=== PATIENT | male | born 1955 | race Caucasian/White ===

== ENCOUNTER 2017-01-10 13:34 | Emergency (ER) | payer SELFPAY ==
[~2017-01-10] VITALS: Ht 182.9 cm; Wt 85.0 kg
[~2017-01-10 13:34] MED LIST: PRED10 PO; VITA10002 PO; [UNRECOGNIZED DRUG - CODE] IV; [UNRECOGNIZED DRUG - CODE] IV; [UNRECOGNIZED DRUG - CODE] IV; [UNRECOGNIZED DRUG - CODE] SQ
[2017-01-10 13:42] VITALS: BP 143/88; PULSE 98; RESP 20; TEMP 97.9; O2SAT 98
--- NOTE | 2017-01-10 14:22 | PD ---
HPI Chief Complaint: Abnormal Results Time Seen by Provider: 14:19 Travel History International Travel<30 days: No Contact w/Intl Traveler<30days: No Traveled to known affect area: No History of Present Illness HPI 61-year-old male came to the emergency room with history of abnormal blood tests. 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 He was treated and has been in remission since January 2015. He was a patient of Dr. Christina. However he had a routine blood test done from [place] 5 days ago which showed abnormally low blood cell counts. He was asked by his [place] doctor to go to the emergency room. He went to [facility] emergency room from where he was admitted to the hospital. Patient was seen by Dr. Byrd and Dr. Dejesus from oncology during his past 4 days of hospitalization. However patient thought that nothing was getting down for him and hence he signed out AMA today and came here straight away. He does say that his platelet count was low and he received a platelet transfusion yesterday. Vital signs are stable. No history of fever or chills. He says that before his blood test was done last week he was feeling weak and easily fatigued. [facility] Past Medical History Narrative Medical List of his past medical, surgical, social and family history is reviewed from the nursing note. 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) Cardiovascular Problems: No High Cholesterol: No Chemotherapy: Yes Chest Pain: No Congestive Heart Failure: No COPD: No Cerebrovascular Accident: No Diabetes: No Diminished Hearing: No Endocrine: No GERD: No Glaucoma: No Genitourinary: No Headaches: Yes Hepatitis: No Hiatal Hernia: Yes Hypertension: No Implanted Vascular Access Dvce: Yes (port left chest (not a power port)) Kidney Stones: No Musculoskeletal: Yes Neurologic: Yes Psychiatric: No Reproductive: No Respiratory: No Myocardial Infarction: No Radiation Therapy: No Renal Failure: No Seizures: No Sickle Cell Disease: No Sleep Apnea: No Thyroid Disease: No Ulcer: No Past Surgical History Abdominal Surgery: Yes (umbillical hernia repair) AICD: No Body Medical Devices: Plates and screws cervical spine. Cardiac Surgery: No Endocrine Surgery: No Eye Surgery: No Neurologic Surgery: Yes (CERVICAL FUSION X 2 (2001,2002,2003)) Oral Surgery: No Pacemaker: No Thoracic Surgery: Yes (Port Placement & removal) Other Surgery: Yes (PORT PLACED AND REMOVED DUE TO MRSA INFECTION) Social History Alcohol Use: Yes (BEER DAILY) Tobacco Use: No Substance Use: No Allergies-Medications (Allergen,Severity, Reaction): Coded Allergies: Oxycodone (Verified Allergy, Severe, HIVES, 01/10/17) Penicillin (Verified Allergy, Intermediate, rash, 01/10/17) *MDRO Multi-Drug Resistant Organism (Verified Allergy, Unknown, 01/10/17) MRSA Comments List of his allergies reviewed from the nursing note. Reported Meds & Prescriptions Reported Meds & Active Scripts Active Levaquin (Levofloxacin) 500 Mg Tab 500 Mg PO DAILY 7 Days Reported Multi-Vitamin Daily (Multiple Vitamin) 1 Tab Tab 1 Tab PO DAILY Narrative Medication List of his home medications reviewed from the nursing note. Review of Systems Except as stated in HPI: all other systems reviewed are Neg Physical Exam Narrative GENERAL: Awake, alert, anxious, no obvious distress SKIN: Warm and dry. HEAD: Atraumatic. Normocephalic. EYES: Pupils equal and round. No scleral icterus. No injection or drainage. ENT: No nasal bleeding or discharge. Mucous membranes pink and moist. NECK: Trachea midline. No JVD. CARDIOVASCULAR: Regular rate and rhythm. No murmur appreciated. RESPIRATORY: No accessory muscle use. Clear to auscultation. Breath sounds equal bilaterally. GASTROINTESTINAL: Abdomen soft, non-tender, nondistended. Hepatic and splenic margins not palpable. MUSCULOSKELETAL: No obvious deformities. No clubbing. No cyanosis. No edema. NEUROLOGICAL: Awake and alert. No obvious cranial nerve deficits. Motor grossly within normal limits. Normal speech. PSYCHIATRIC: Appropriate mood and affect; insight and judgment normal. Data Data Last Documented VS Vital Signs Date Time Temp Pulse Resp B/P Pulse Ox O2 Delivery O2 Flow Rate FiO2 01/10/17 17:40 97.6 78 17 130/71 100 01/10/17 15:58 Room Air Orders Complete Blood Count With Diff (01/10/17 14:51) Comprehensive Metabolic Panel (01/10/17 14:51) Type And Screen (01/10/17 14:51) Prothrombin Time / Inr (Pt) (01/10/17 14:51) ^ Saline Lock (01/10/17 14:51) Labs Laboratory Tests Test 01/10/17 15:10 White Blood Count 1.3 TH/MM3 Red Blood Count 3.23 MIL/MM3 Hemoglobin 10.1 GM/DL Hematocrit 28.9 % Mean Corpuscular Volume 89.3 FL Mean Corpuscular Hemoglobin 31.1 PG Mean Corpuscular Hemoglobin 34.8 % Concent Red Cell Distribution Width 14.7 % Platelet Count 42 TH/MM3 Mean Platelet Volume 9.8 FL Neutrophils (%) (Auto) % Lymphocytes (%) (Auto) % Monocytes (%) (Auto) % Eosinophils (%) (Auto) % Basophils (%) (Auto) % Neutrophils # (Auto) TH/MM3 Lymphocytes # (Auto) TH/MM3 Monocytes # (Auto) TH/MM3 Eosinophils # (Auto) TH/MM3 Basophils # (Auto) TH/MM3 CBC Comment AUTO DIFF Differential Total Cells 100 Counted Neutrophils % (Manual) 39 % Band Neutrophils % 18 % Lymphocytes % 32 % Monocytes % 7 % Eosinophils % 3 % Neutrophils # (Manual) 0.8 TH/MM3 Metamyelocytes 1 % Nucleated Red Blood Cells 1 /100 WBC Differential Comment FINAL DIFF MANUAL Platelet Estimate LOW Platelet Morphology Comment NORMAL Prothrombin Time 11.4 SEC Prothromb Time International 1.0 RATIO Ratio Sodium Level 142 MEQ/L Potassium Level 3.8 MEQ/L Chloride Level 107 MEQ/L Carbon Dioxide Level 26.4 MEQ/L Anion Gap 9 MEQ/L Blood Urea Nitrogen 10 MG/DL Creatinine 0.91 MG/DL Estimat Glomerular Filtration 85 ML/MIN Rate Random Glucose 90 MG/DL Calcium Level 8.1 MG/DL Total Bilirubin 1.7 MG/DL Aspartate Amino Transf 67 U/L (AST/SGOT) Alanine Aminotransferase 47 U/L (ALT/SGPT) Alkaline Phosphatase 66 U/L Total Protein 5.5 GM/DL Albumin 3.3 GM/DL Blood Type B POSITIVE Antibody Screen NEGATIVE Crossmatch Leukocyte-Reduced Red Blood Cells Blood Bank Comment [facility] Medical Decision Making Medical Screen Exam Complete: Yes Emergency Medical Condition: Yes Medical Record Reviewed: Yes Differential Diagnosis Pancytopenia, neutropenia, aplastic anemia Narrative Course 5:35 PM blood test results are back and patient is mount in good neutrophil and and response. I discussed the case with Dr. Bolton who was aviation tactical readiness officer for oncology. He was able to access the medical record from [facility]. He said that patient's white cell count today was better than what it has been in [facility] in the past. He thought that patient was okay to be discharged home and get a patient workup including bone marrow biopsy. The patient to be discharged home on Levaquin 500 mg for 7 day. He wanted a repeat blood test done on Thursday at the [facility] office. I have explained all this to the patient and his mother was there as well a sling to the plan. Patient will be discharged home. Procedures EKG Prior to Arrival: No Diagnosis Primary Impression: Pancytopenia Referrals: Romero Landrum MD 2 days Additional Instructions: Please follow-up with Dr. Byrd at his [facility] office on Thursday to get a repeat blood test done. He will guided you with further plan based on the blood test. Take the antibiotic as per the prescription direction. Please return to the ER if you start getting fever or any other symptoms. Med/Other Pt SpecificInfo: Prescription(s) given Scripts Levofloxacin (Levaquin)500 Mg [id number] Mg PO DAILY 7 Days Ref 0 Prov:Pradip Zafar MD 01/10/17 Disposition: 01 DISCHARGE HOME Condition: Stable Pradip Zafar MD Jan 10, 2017 14:22 Condition: Stable Pradip Zafar MD Jan 10, 2017 14:22
[2017-01-10] MEDS ORDERED: MULT-65 PO (14:24)
[2017-01-10 15:38] LABS: PROTHROMBIN TIME - PATIENT 11.4 SEC (9.8-11.6)
[2017-01-10 15:40] LABS: HEMATOCRIT 28.9 % (39.0-51.0); MEAN CELL VOLUME 89.3 FL (80.0-100.0); MEAN CORPUSCULAR HEMOGLOBIN 31.1 PG (27.0-34.0); MEAN CORPUSCULAR HGB CONC 34.8 % (32.0-36.0); PLATELET COUNT 42 TH/MM3 (150-450); RED BLOOD COUNT 3.23 MIL/MM3 (4.50-5.90); RED CELL DISTRIBUTION WIDTH 14.7 % (11.6-17.2); WHITE BLOOD COUNT 1.3 TH/MM3 (4.0-11.0)
[2017-01-10 15:45] LABS: HEMO FLAGS AUTO DIFF
[2017-01-10 15:58] VITALS: BP 120/76; PULSE 76; RESP 17; O2SAT 100
[2017-01-10 15:58] LABS: ALT (GPT) 47 U/L (12-78); ANION GAP 9 MEQ/L (5-15); AST (GOT) 67 U/L (15-37); BICARBONATE 26.4 MEQ/L (21.0-32.0); BLOOD UREA NITROGEN 10 MG/DL (7-18); CHLORIDE 107 MEQ/L (98-107); GLOMERULAR FILTRATION RATE 85 ML/MIN (>89); POTASSIUM 3.8 MEQ/L (3.5-5.1); SODIUM (NA) 142 MEQ/L (136-145)
[2017-01-10 16:00] LABS: ALKALINE PHOSPHATASE 66 U/L (45-117); TOTAL BILIRUBIN ADULT 1.7 MG/DL (0.2-1.0)
[2017-01-10 16:24] LABS: BANDS 18 % (0-6); EOSINOPHILS 3 % (0-4); METAMYELOCYTES 1 % (0-1); NEUTROPHIL # MANUAL DIFF 0.8 TH/MM3 (1.8-7.7); POLYS (SEG NEUTROPHILS) 39 % (16-70)
[2017-01-10 16:25] LABS: CORRECTED NUCLEATED RBC 1 /100 WBC (0-0); PLATELET ESTIMATE SMEAR LOW (NORMAL); PLATELET MORPHOLOGY NORMAL (NORMAL); SCAN/DIFF FINAL DIFF MANUAL; WBC DIFF SAMPLE 100
[2017-01-10] MEDS ORDERED: LEVA500T PO (17:38)
[2017-01-10 17:40] VITALS: BP 130/71; TEMP 97.6
== END 2017-01-10 17:40 | disposition home or self-care (01) ==
LOC: NEPE 13:34
DX: D61.818 Other pancytopenia (principal)
CPT/HCPCS: 80053; 85007; 85027; 85610; 86850; 86900; 86901; 86920; 86921; 86922; 99283

== ENCOUNTER 2017-01-28 17:46 | Inpatient (IN) | payer OTHER ==
[~2017-01-28] VITALS: Ht 182.9 cm; Wt 89.9 kg
[~2017-01-28 17:46] MED LIST changes: +LEVA500T PO; +MULT-65 PO; -PRED10 PO; -VITA10002 PO; -[UNRECOGNIZED DRUG - CODE] IV; -[UNRECOGNIZED DRUG - CODE] IV; -[UNRECOGNIZED DRUG - CODE] IV; -[UNRECOGNIZED DRUG - CODE] SQ
[2017-01-28 17:47] VITALS: BP 134/69; PULSE 122; RESP 22; TEMP 102; O2SAT 99
[2017-01-28] MEDS ORDERED: CEFEPIME INJ 2,000 MG in SODIUM CHLORIDE 0.9% INJ 100 ML IV STA (18:27)
[2017-01-28] MEDS ORDERED: ACETAMINOPHEN 500 MG CPLT PO ONE (18:30)
[2017-01-28] MEDS ORDERED: SODIUM CHLOR 0.9% 1000 ML INJ 1,000 ML IV SCH (18:30)
--- NOTE | 2017-01-28 18:31 | PD ---
HPI Chief Complaint: Respiratory Distress Time Seen by Provider: 18:14 Travel History International Travel<30 days: No Contact w/Intl Traveler<30days: No Traveled to known affect area: No History of Present Illness HPI This is a 61-year-old male who presents to the emergency department with a history of T-cell lymphoma with 2 weeks of myalgias,, generalized weakness, with difficulty going about his activities of daily living. He had some fevers and chills. His symptoms have been severe to the point where he hasn't been able to work. He was hospitalized at [facility] about 2 weeks ago in the setting of pancytopenia. They were trying to coordinate a bone marrow biopsy but he doesn't have insurance that was complex. He's followed up with us in our ER once since then and he had an upward trending white blood cell count so he was discharged. Today he says he feels more fatigued and he doesn't think he can do this anymore at home. He thinks his lymphoma has recurred. PFSH Past Medical History 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) Cardiovascular Problems: No High Cholesterol: No Chemotherapy: Yes Chest Pain: No Congestive Heart Failure: No COPD: No Cerebrovascular Accident: No Diabetes: No Diminished Hearing: No Endocrine: No GERD: No Glaucoma: No Genitourinary: No Headaches: Yes Hepatitis: No Hiatal Hernia: Yes Hypertension: No Implanted Vascular Access Dvce: Yes (port left chest (not a power port)) Kidney Stones: No Musculoskeletal: Yes Neurologic: Yes Psychiatric: No Reproductive: No Respiratory: No Myocardial Infarction: No Radiation Therapy: No Renal Failure: No Seizures: No Sickle Cell Disease: No Sleep Apnea: No Thyroid Disease: No Ulcer: No Past Surgical History Abdominal Surgery: Yes (umbillical hernia repair) AICD: No Body Medical Devices: Plates and screws cervical spine. Cardiac Surgery: No Endocrine Surgery: No Eye Surgery: No Neurologic Surgery: Yes (CERVICAL FUSION X 2 (2001,2002,2003)) Oral Surgery: No Pacemaker: No Thoracic Surgery: Yes (Port Placement & removal) Other Surgery: Yes (PORT PLACED AND REMOVED DUE TO MRSA INFECTION) Social History Alcohol Use: Yes (ocassionally) Tobacco Use: No Substance Use: No Allergies-Medications (Allergen,Severity, Reaction): Coded Allergies: Oxycodone (Verified Allergy, Severe, HIVES, 01/28/17) Penicillin (Verified Allergy, Intermediate, rash, 01/28/17) *MDRO Multi-Drug Resistant Organism (Verified Allergy, Unknown, 01/28/17) MRSA Reported Meds & Prescriptions Reported Meds & Active Scripts Active Reported Vitamin [id number] Acid (Cobalamine Combinations) 500-400 Mcg Tab 1 Tab PO DAILY Multiple Vitamin 1 Tab 1 Tab PO DAILY Review of Systems Except as stated in HPI: all other systems reviewed are Neg Physical Exam Narrative GENERAL:Well appearing, no acute distress SKIN: Warm and dry. HEAD: Atraumatic. Normocephalic. EYES: Pupils equal and round. No injection or drainage. ENT: Moist mucous membranes NECK: Trachea midline. CARDIOVASCULAR: Regular rate and rhythm. No murmur appreciated. RESPIRATORY: Clear to auscultation. Breath sounds equal bilaterally. GASTROINTESTINAL: Abdomen soft, non-tender, nondistended. Splenomegaly present. MUSCULOSKELETAL: No obvious deformities. NEUROLOGICAL: Awake and alert. No obvious cranial nerve deficits. Moving all extremities. PSYCHIATRIC: Appropriate mood and affect; insight and judgment normal. Data Data Last Documented VS Vital Signs Date Time Temp Pulse Resp B/P Pulse Ox O2 Delivery O2 Flow Rate FiO2 01/28/17 19:14 110 18 124/78 98 Room Air 01/28/17 17:47 102.0 Orders Complete Blood Count With Diff (01/28/17 18:27) Comprehensive Metabolic Panel (01/28/17 18:27) Lactic Acid Sepsis Protocol (01/28/17 18:27) Urinalysis - C+S If Indicated (01/28/17 18:27) Blood Culture (01/28/17 18:27) Chest, Single Ap (01/28/17 18:27) Blood Glucose (01/28/17 18:27) Ecg Monitoring (01/28/17 18:27) Iv Access Insert/Monitor (01/28/17 18:27) Oximetry (01/28/17 18:27) Oxygen Administration (01/28/17 18:27) Cefepime Inj (Maxipime Inj) (01/28/17 18:27) Sodium Chlor 0.9% 1000 Ml Inj (Ns 1000 M (01/28/17 18:30) Acetaminophen (Tylenol) (01/28/17 18:30) Influenzae A/B Antigen (01/28/17 18:27) Isolation 08,20 (01/28/17 19:08) Admit Order (Ed Use Only) (01/28/17 20:18) Labs Laboratory Tests Test 01/28/17 17:38 White Blood Count 1.1 TH/MM3 Red Blood Count 3.72 MIL/MM3 Hemoglobin 11.2 GM/DL Hematocrit 32.8 % Mean Corpuscular Volume 88.2 FL Mean Corpuscular Hemoglobin 30.1 PG Mean Corpuscular Hemoglobin 34.2 % Concent Red Cell Distribution Width 15.0 % Platelet Count 50 TH/MM3 Mean Platelet Volume 7.6 FL Neutrophils (%) (Auto) 77.6 % Lymphocytes (%) (Auto) 6.8 % Monocytes (%) (Auto) 14.6 % Eosinophils (%) (Auto) 0.4 % Basophils (%) (Auto) 0.6 % Neutrophils # (Auto) 0.9 TH/MM3 Lymphocytes # (Auto) 0.1 TH/MM3 Monocytes # (Auto) 0.2 TH/MM3 Eosinophils # (Auto) 0.0 TH/MM3 Basophils # (Auto) 0.0 TH/MM3 CBC Comment AUTO DIFF Differential Total Cells 100 Counted Neutrophils % (Manual) 60 % Band Neutrophils % 24 % Lymphocytes % 4 % Monocytes % 11 % Neutrophils # (Manual) 0.9 TH/MM3 Myelocytes 1 % Differential Comment FINAL DIFF MANUAL Platelet Estimate LOW Ovalocytes 1+ Sodium Level 134 MEQ/L Potassium Level 4.0 MEQ/L Chloride Level 99 MEQ/L Carbon Dioxide Level 27.1 MEQ/L Anion Gap 8 MEQ/L Blood Urea Nitrogen 11 MG/DL Creatinine 1.09 MG/DL Estimat Glomerular Filtration 69 ML/MIN Rate Random Glucose 115 MG/DL Lactic Acid Level 0.9 mmol/L Calcium Level 9.0 MG/DL Total Bilirubin 2.4 MG/DL Aspartate Amino Transf 30 U/L (AST/SGOT) Alanine Aminotransferase 19 U/L (ALT/SGPT) Alkaline Phosphatase 81 U/L Total Protein 6.4 GM/DL Albumin 3.5 GM/DL MDM Medical Decision Making Medical Screen Exam Complete: Yes Emergency Medical Condition: Yes Medical Record Reviewed: Yes (patient was seen in the emergency department on January 10 and was noted to have pancytopenia but his counts were improving from prior hospitalizations of the patient was discharged home) Interpretation(s) White count is 1.1 ANC is 934 Electrolytes are reassuring Total bilirubin is 2.4 Lactic acid is 0.9 Chest x-ray: No pneumonia Differential Diagnosis Pneumonia, urinary tract infection, influenza, sepsis, lymphoma Narrative Course This is a 61-year-old male who presents to the emergency department with a history of T-cell lymphoma. He presents today with worsening malaise. He was febrile on arrival. He was placed on a monitor and an IV was established. Cultures were obtained and was given a dose of cefepime. Labs demonstrate an ANC of 934. Chest x-ray was reassuring. Patient will be admitted for IV antibiotics and oncology consultation. Diagnosis Primary Impression: Neutropenic fever Admitting Information Admitting Physician Requests: Admit Leda Kowalski MD Jan 28, 2017 18:31
[2017-01-28] MEDS ORDERED: MULTTAB67 PO (18:32)
[2017-01-28] MEDS ORDERED: VITATAB43 PO (18:32)
[2017-01-28 18:36] VITALS: O2SAT 100
--- NOTE | 2017-01-28 19:04 | RADRPT ---
EXAM DATE/TIME: 01/28/2017 18:36 [facility] COMPARISON: CHEST SINGLE AP, November 14, 2014, 10:18. INDICATIONS : Short of breath, fatigue and chest pain. MEDICAL HISTORY : Lymphoma. SURGICAL HISTORY : None. ENCOUNTER: Initial ACUITY: 2 days PAIN SCORE: 10/10 LOCATION: Bilateral chest FINDINGS: A single view of the chest demonstrates the lungs to be symmetrically aerated without evidence of mas s, infiltrate or effusion. The cardiomediastinal contours are unremarkable. Osseous structures are intact. CONCLUSION: No acute disease. Nixon Valencia MD on January 28, 2017 at 19:02 Board Certified Radiologist. This report was verified electronically.
[2017-01-28 19:05] LABS: AUTOMATED NEUTROPHIL # 0.9 TH/MM3 (1.8-7.7); BASOPHIL % 0.6 % (0.0-2.0); EOSINOPHIL % 0.4 % (0.0-4.0); HEMATOCRIT 32.8 % (39.0-51.0); LYMPH % 6.8 % (9.0-44.0); LYMPHOCYTE # 0.1 TH/MM3 (1.0-4.8); MEAN CELL VOLUME 88.2 FL (80.0-100.0); MEAN CORPUSCULAR HEMOGLOBIN 30.1 PG (27.0-34.0); MEAN CORPUSCULAR HGB CONC 34.2 % (32.0-36.0); MONO % 14.6 % (0.0-8.0); NEUT % 77.6 % (16.0-70.0); PLATELET COUNT 50 TH/MM3 (150-450); RED BLOOD COUNT 3.72 MIL/MM3 (4.50-5.90); WHITE BLOOD COUNT 1.1 TH/MM3 (4.0-11.0)
[2017-01-28 19:09] LABS: HEMO FLAGS AUTO DIFF
[2017-01-28 19:14] VITALS: BP 124/78; PULSE 110; RESP 18; O2SAT 98
[2017-01-28 19:34] LABS: ANION GAP 8 MEQ/L (5-15); AST (GOT) 30 U/L (15-37); BICARBONATE 27.1 MEQ/L (21.0-32.0); BLOOD UREA NITROGEN 11 MG/DL (7-18); CHLORIDE 99 MEQ/L (98-107); GLOMERULAR FILTRATION RATE 69 ML/MIN (>89); SODIUM (NA) 134 MEQ/L (136-145)
[2017-01-28 19:37] LABS: ALKALINE PHOSPHATASE 81 U/L (45-117); ALT (GPT) 19 U/L (12-78); TOTAL BILIRUBIN ADULT 2.4 MG/DL (0.2-1.0)
[2017-01-28 20:14] LABS: BANDS 24 % (0-6); MYELOCYTES 1 % (0-0); NEUTROPHIL # MANUAL DIFF 0.9 TH/MM3 (1.8-7.7); POLYS (SEG NEUTROPHILS) 60 % (16-70); WBC DIFF SAMPLE 100
[2017-01-28 20:16] LABS: OVALOCYTES 1+ (NORMAL); PLATELET ESTIMATE SMEAR LOW (NORMAL)
[2017-01-28 20:17] LABS: SCAN/DIFF FINAL DIFF MANUAL
--- NOTE | 2017-01-28 20:44 | HHI.HP ---
[facility] Service Family Medicine Primary Care Physician [facility] Admission Diagnosis neutropenic fever Diagnoses: International Travel<30 Days: No Contact w/Intl Traveler<30days: No Known Affected Area: No History of Present Illness Today 01/28/2017: Two weeks ago, Mr. Sargent reports that the "bottom fell out of my blood counts" -- at that point he went to [facility]. He was not happy with the care at this facility so he left and came to [place] ED on January 10. At this point his ANC was improving. He was sent home with neutropenic precautions, a follow up with his PCP (Dr. Paige) in 2 days for report lab work, and 5 days of Levaquin therapy. At his visit, his ANC was improving, however he was still thrombocytopenic and anemic. Since this apt he started feeling better, however since Friday 01/26 he has started to feel worn out. It feels similar to the previous episodes he was having prior to his cancer diagnosis. He feels very tired, fatigued, and all of his joints hurt. He is "dazed and confused", and "detached". Feeling depressed as well. Last night he woke up in a puddle of sweat. This has been occurring for the last month to six weeks. He started with a new dry cough today at about 1:30 pm, and at that time felt nauseated. When he got home he threw up. The vomit was liquid, white in color. Denies blood. First time he threw up in a while. Denies diarrhea or abdominal pain currently. Was told he was in [place] in January of 2015 - has not been getting regular follow ups after he lost insurance and experienced a divorce. ROS: ++ Stiff neck (for several weeks), headache, and joint pains (for several weeks). Glands in neck feel swollen. Pain in left side of upper abd. Same feeling as before from enlarged spleen. (Edmund Castro MD R2) Review of Systems Constitutional: COMPLAINS OF: Diaphoretic episodes, Fatigue, Fever, Chills, Night Sweats Eyes: DENIES: Blurred vision, Diplopia Respiratory: COMPLAINS OF: Cough, DENIES: Sputum production, Shortness of breath Cardiovascular: DENIES: Syncope Gastrointestinal: DENIES: Black stools, Bloody stools Musculoskeletal: COMPLAINS OF: Joint pain, Muscle aches, Stiffness, Back pain, Neck pain Integumentary: DENIES: Rash Hematologic/lymphatic: DENIES: Bruising Neurologic: COMPLAINS OF: Headache, DENIES: Abnormal gait, Localized weakness , Seizures Psychiatric: COMPLAINS OF: Anxiety, Depression, DENIES: Confusion (Edmund Castro MD R2) Past Family Social History 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 Left lower extremity with chronic venous vascular changes including hyperpigmentation. HEAD: Atraumatic. 1.5 cm nodule nontender rubbery ant cervical on left EYES: Pupils equal round and reactive. slightly icteric sclera ENT: Nose without bleeding, purulent drainage or septal hematoma. Throat without erythema, tonsillar hypertrophy or exudate. Uvula midline. Airway patent. NECK: Trachea midline. CARDIOVASCULAR: Regular rate and rhythm without murmurs, gallops, or rubs. RESPIRATORY: Clear to auscultation. GASTROINTESTINAL: Abdomen soft, non-tender, nondistended. Significant splenomegaly +15-20 cm below costal border MUSCULOSKELETAL: Extremities without clubbing, cyanosis, or edema. No joint tenderness, effusion, or edema noted. No calf tenderness. Negative Homans sign bilaterally. Cool and clammy. NEUROLOGICAL: Awake and alert. Cranial nerves II through XII intact. Motor and sensory grossly within normal limits. Five out of 5 muscle strength in all muscle groups. Normal speech. Laboratory Laboratory Tests Test 01/28/17 17:38 White Blood Count 1.1 Red Blood Count 3.72 Hemoglobin 11.2 Hematocrit 32.8 Mean Corpuscular Volume 88.2 Mean Corpuscular Hemoglobin 30.1 Mean Corpuscular Hemoglobin 34.2 Concent Red Cell Distribution Width 15.0 Platelet Count 50 Mean Platelet Volume 7.6 Neutrophils (%) (Auto) 77.6 Lymphocytes (%) (Auto) 6.8 Monocytes (%) (Auto) 14.6 Eosinophils (%) (Auto) 0.4 Basophils (%) (Auto) 0.6 Neutrophils # (Auto) 0.9 Lymphocytes # (Auto) 0.1 Monocytes # (Auto) 0.2 Eosinophils # (Auto) 0.0 Basophils # (Auto) 0.0 CBC Comment AUTO DIFF Differential Total Cells 100 Counted Neutrophils % (Manual) 60 Band Neutrophils % 24 Lymphocytes % 4 Monocytes % 11 Neutrophils # (Manual) 0.9 Myelocytes 1 Differential Comment FINAL DIFF MANUAL Platelet Estimate LOW Ovalocytes 1+ Sodium Level 134 Potassium Level 4.0 Chloride Level 99 Carbon Dioxide Level 27.1 Anion Gap 8 Blood Urea Nitrogen 11 Creatinine 1.09 Estimat Glomerular Filtration 69 Rate Random Glucose 115 Lactic Acid Level 0.9 Calcium Level 9.0 Total Bilirubin 2.4 Aspartate Amino Transf 30 (AST/SGOT) Alanine Aminotransferase 19 (ALT/SGPT) Alkaline Phosphatase 81 Total Protein 6.4 Albumin 3.5 Date/Time Procedure Status Source Growth 01/28/17 17:38 Aerobic Blood Culture Received Blood Peripheral Pending 01/28/17 17:38 Anaerobic Blood Culture Received Blood Peripheral Pending 01/28/17 17:35 Influenza Types A,B Antigen (GRICELDA) - Final Complete Nasal Washing NEGATIVE FOR FLU A AND B ANTIGEN.... (Edmund Castro MD R2) Result Diagram: 01/28/17 1738 01/28/17 1738 Imaging Last Impressions Chest X-Ray 01/28/17 1827 Signed Impressions: Service Date/Time: Saturday, January 28, 2017 18:36 - CONCLUSION: No acute disease. Nixon Valencia MD (Edmund Castro MD R2) Septic Shock Reassessment Heart: Regular rate and rhythm Lungs: Clear Skin: Warm Peripheral Pulses: Bounding Right Radial Bounding Left Radial Capillary Refill: <2 seconds (Edmund Castro MD R2) Assessment and Plan Assessment and Plan 61 y/o very pleasant Caucasion male with hx of Peripheral T-Cell lymphoma in 2013 that was treated with chemotherapy. He presented to [place] ED after recently having fevers (102.0 F), malaise, and an ANC < 1,000. He will be admitted for neutropenic fever of 102 F. Broad spectrum abx have been started and medical oncology has been consulted. Code Status Full Code. (Edmund Castro MD R2) Attending Attestation THIS CASE WAS DISCUSSED WITH THE RESIDENT PHYSICIANS. I HAVE REVIEWED THE RECORD AND AGREE WITH THE ABOVE NOTE AND PLAN OF CARE WAS DISCUSSED. I HAVE AUTHORIZED THE ORDER FOR ADMISSION TO AN IN-PATIENT STATUS. (Francis Sher MD) Problem List: (1) Fever Status: Acute Plan: Neutropenic fever workup to include: Broad spectrum ABX including Cefepime 2 g q 8 hr and Vanc 1,250 mg BID IV Blood cultures x 2 Tylenol 650 prn fevers > 100.4 LA 0.9 WNL (2) Anemia Status: Acute Plan: Likely secondary to myelosuppression from abnormal T-Cell proliferation / cancer recurrence continue to monitor - may need bone marrow aspiration in future. Transfuse if < 8.0 (3) Hyponatremia Status: Acute Plan: S/p 1 L NS bolus, repeat BMP in am (4) Alcohol abuse Status: Acute Plan: Drinks 2-3 beers every day with more on weekends --- CIWA protocol denies every experiencing withdrawal symptoms. (5) DVT prophylaxis Status: Acute Plan: hold Lovenox given thrombocytopenia of 50k transfuse if < 10,000 (6) Neutropenic fever Status: Acute (7) Nutrition, metabolism, and development symptoms Status: Acute Plan: Nutrition: Reg diet Electrolytes: AT goal except 134 Na+ DVT: SCDs wdw Dr. Sher (Edmund Castro MD R2) Physician Certification 2 Midnight Certification Type: Admission for Inpatient Services Order for Inpatient Services The services are ordered in accordance with Medicare regulations or non- Medicare payer requirements, as applicable. In the case of services not specified as inpatient-only, they are appropriately provided as inpatient services in accordance with the 2-midnight benchmark. Estimated LOS (days): 2 3 days is the estimated time the patient will need to remain in the hospital, assuming treatment plan goals are met and no additional complications. Post-Hospital Plan: Home (Edmund Castro MD R2) Edmund Castro MD R2 Jan 28, 2017 20:43 Francis Sher MD Jan 29, 2017 15:12
[2017-01-28] MEDS ORDERED: ENOXAPARIN SODIUM 40 MG/0.4 ML SYRINGE SQ SCH (21:30)
[2017-01-28] MEDS ORDERED: NALOXONE HCL 0.4 MG/ML AMP IV PRN (21:30)
[2017-01-28] MEDS ORDERED: ONDANSETRON HCL 4 MG/2 ML VIAL IVP PRN (21:30)
[2017-01-28] MEDS ORDERED: MAGNESIUM HYDROXIDE SUSP 30 ML CUP PO PRN (21:30)
[2017-01-28 23:04] LABS: BLOOD, URINE NEG (NEG); GLUCOSE,URINE NEG (NEG); KETONE, URINE NEG (NEG); NITRITE,URINE NEG (NEG); SQUAMOUS EPITHELIAL CELL URINE <1 /hpf (0-5); URINE COLOR YELLOW (YELLW/STRAW)
[2017-01-28 23:08] LABS: COMMENT (UR) CATH-CULT NOT IND; CULTURE IF INDICATED CATH CULTURE NOT IND
[2017-01-29] VITALS (7 sets, daily range): BP systolic 109–129; BP diastolic 57–70; PULSE 85–112; RESP 17–20; TEMP 98.5–101.3; O2SAT 97–100
[2017-01-29] MEDS: VANCOMYCIN INJ 1,250 MG in SODIUM CHLOR 0.9% 250 ML INJ 250 ML IV SCH ×2 (02:09→14:00)
[2017-01-29] MEDS: CEFEPIME INJ 2,000 MG in SODIUM CHLORIDE 0.9% INJ 100 ML IV SCH ×3 (04:30→19:53)
[2017-01-29] MEDS: ACETAMINOPHEN 325 MG TAB PO PRN ×3 (05:30→20:06)
[2017-01-29] MEDS: SODIUM CHLOR 0.9% 1000 ML INJ 1,000 ML IV SCH ×2 (05:31→15:15)
[2017-01-29 11:22] LABS: AUTOMATED NEUTROPHIL # 0.7 TH/MM3 (1.8-7.7); BASOPHIL % 0.7 % (0.0-2.0); EOSINOPHIL % 1.2 % (0.0-4.0); HEMATOCRIT 30.6 % (39.0-51.0); LYMPH % 8.2 % (9.0-44.0); LYMPHOCYTE # 0.1 TH/MM3 (1.0-4.8); MEAN CELL VOLUME 89.3 FL (80.0-100.0); MEAN CORPUSCULAR HEMOGLOBIN 30.3 PG (27.0-34.0); MONO % 11.3 % (0.0-8.0); NEUT % 78.6 % (16.0-70.0); PLATELET COUNT 41 TH/MM3 (150-450); RED BLOOD COUNT 3.43 MIL/MM3 (4.50-5.90); RED CELL DISTRIBUTION WIDTH 15.3 % (11.6-17.2); WHITE BLOOD COUNT 0.8 TH/MM3 (4.0-11.0)
[2017-01-29 11:25] LABS: HEMO FLAGS AUTO DIFF
[2017-01-29 11:50] LABS: ALKALINE PHOSPHATASE 67 U/L (45-117); ALT (GPT) 18 U/L (12-78); ANION GAP 5 MEQ/L (5-15); AST (GOT) 32 U/L (15-37); BICARBONATE 29.9 MEQ/L (21.0-32.0); BLOOD UREA NITROGEN 10 MG/DL (7-18); CHLORIDE 103 MEQ/L (98-107); GLOMERULAR FILTRATION RATE 73 ML/MIN (>89); POTASSIUM 3.8 MEQ/L (3.5-5.1); SODIUM (NA) 138 MEQ/L (136-145); TOTAL BILIRUBIN ADULT 2.2 MG/DL (0.2-1.0)
[2017-01-29 12:25] LABS: BANDS 15 % (0-6); EOSINOPHILS 3 % (0-4); MYELOCYTES 2 % (0-0); NEUTROPHIL # MANUAL DIFF 0.7 TH/MM3 (1.8-7.7); OVALOCYTES 1+ (NORMAL); PLATELET ESTIMATE SMEAR LOW (NORMAL); PLATELET MORPHOLOGY NORMAL (NORMAL); POLYS (SEG NEUTROPHILS) 69 % (16-70); SCAN/DIFF FINAL DIFF MANUAL; WBC DIFF SAMPLE 100
--- NOTE | 2017-01-29 15:12 | HHI.FPPN ---
Subjective Remarks No acute events overnight, patient did feel chilled but denies any subjective fevers. He denies any chest pain or shortness of breath, denies any nausea or vomiting, denies any joint pains. Overall he states this morning that he is feeling relatively well. In summary this is a 61-year-old male with a history of T-cell lymphoma treated with chemotherapy in 2013 who presents to the emergency department with fevers. He had "flulike illness" with stiff neck, headache, and joint pains for several weeks and presented to [facility] in [facility]. He then left the hospital and presented to [place] emergency department on January 10 at which point his ANC was improving and he was sent home with neutropenic precautions and 5 days of Levaquin and instructed to follow-up with his primary care doctor. He continued to feel significantly tired and worn out as well as having new episodes of diaphoresis at night. On the day of presentation, he developed a cough with nausea and emesis 1. 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 - Beers - 1-2 beers a day, no withdrawals [employer] - denies MSDS coolant exposure -- worked there for 1998 - 2003 lots of fumes Objective Vitals Vital Signs Date Time Temp Pulse Resp B/P Pulse Ox O2 Delivery O2 Flow Rate FiO2 01/29/17 12:06 99.9 98 18 113/58 99 01/29/17 08:00 98.6 87 18 121/70 100 01/29/17 04:35 101.3 109 18 118/57 97 01/29/17 01:45 100.1 112 18 128/59 100 01/29/17 01:17 98.5 87 18 129/64 100 Room Air 01/28/17 19:14 110 18 124/78 98 Room Air 01/28/17 18:36 100 Room Air 01/28/17 18:20 112 20 100 Room Air 01/28/17 17:47 102.0 122 22 134/69 99 Room Air I/O 01/28/17 01/28/17 01/28/17 01/29/17 01/29/17 01/29/17 07:00 15:00 23:00 07:00 15:00 23:00 Intake Total 870 ml 1200 ml Output Total 400 ml Balance 470 ml 1200 ml Intake Oral 500 ml 1200 ml IV Total 370 ml Output Urine Total 400 ml # Voids 3 # Bowel Movements 1 Result Diagram: 01/29/17 1054 01/29/17 1054 Imaging Last 48 hours Impressions Chest X-Ray 01/28/17 1827 Signed Impressions: Service Date/Time: Saturday, January 28, 2017 18:36 - CONCLUSION: No acute disease. Nixon Valencia MD Objective Remarks GENERAL: Healthy-appearing male, lying in bed in no obvious distress. SKIN: No rashes, ecchymoses or lesions. Left lower extremity with chronic venous vascular changes including hyperpigmentation. NECK: Trachea midline. No JVD or lymphadenopathy palpable CARDIOVASCULAR: Regular rate and rhythm without murmurs, gallops, or rubs. RESPIRATORY: Clear to auscultation. GASTROINTESTINAL: Abdomen soft, non-tender, nondistended. Significant splenomegaly MUSCULOSKELETAL: Extremities without clubbing, cyanosis, or edema. NEUROLOGICAL: Awake and alert. A/P Assessment and Plan 61 y/o very pleasant Caucasion male with hx of Peripheral T-Cell lymphoma in 2013 that was treated with chemotherapy. He presented to [place] ED after recently having fevers (102.0 F), malaise, and an ANC < 1,000. He will be admitted for neutropenic fever of 102 F. Broad spectrum abx have been started and medical oncology has been consulted. Problem List: (1) Neutropenic fever Status: Acute Plan: Patient meets criteria for neutropenic fever on presentation with ANC of 1118 and febrile - Today's ANC is 749 Concern for occult infection versus relapse of lymphoma - Neutropenic precautions placed for entry to room Broad-spectrum antibiotics as below: - Cefepime 2 g IV every 8 hours - Vancomycin 1250 mg IV twice a day Tylenol 650 mg as needed for fevers greater than 100.4F Blood cultures 2 ordered and pending Urine culture ordered and pending Peripheral blood smear ordered and pending Hematology/oncology consult placed, patient known to Dr. Christina (2) Anemia Status: Acute Plan: Likely secondary to myelosuppression from abnormal T-Cell proliferation / cancer recurrence continue to monitor - may need bone marrow aspiration in future. Transfuse if < 8.0 (3) Hyponatremia Status: Acute Plan: Resolved with IV hydration (4) Alcohol abuse Status: Acute Plan: Drinks 2-3 beers every day with more on weekends --- [facility] protocol denies every experiencing withdrawal symptoms. (5) DVT prophylaxis Status: Acute Plan: hold Lovenox given thrombocytopenia of 50k transfuse if < 10,000 (6) Nutrition, metabolism, and development symptoms Status: Acute Plan: Nutrition: Reg diet Electrolytes: AT goal except 134 Na+ DVT: Francis Smith MD Jan 29, 2017 15:12
[2017-01-29] MEDS ORDERED: LORazepam 2 MG/ML VIAL IV PUSH ONE (16:15)
[2017-01-29] MEDS ORDERED: MORPHINE SULFATE 4 MG/ML INJ IV PUSH ONE (16:15)
[2017-01-29] MEDS ORDERED: LIDOCAINE HCL 1% 50 ML VIAL ONE (16:31)
[2017-01-29 17:15] LABS: BONE MARROW PROCESSING COMPLETE; IRON STAIN DONE; JENNER GIEMSA STAIN DONE
--- NOTE | 2017-01-29 19:03 | MB ---
cc: ZANE SHER ZAFAR MD DEVERAS, RUBY ANNE E. M.D. DATE OF CONSULTATION 01/29/17 [address] Zane Manrique CHIEF COMPLAINT Dr. Sher requests a consultation for Mr. Sargent regarding concern for recurrent peripheral T-cell lymphoma. HISTORY OF PRESENT ILLNESS Mr. Sargent is a 61-year-old man, well-known patient, originally diagnosed with a peripheral T-cell lymphoma May 12, 2014. He had an axillary lymph node that confirmed a diagnosis of peripheral T-cell lymphoma. He was treated with CHOP chemotherapy times eight. He declined referral to transplant. He has been followed with various bouts of intermittent fevers. He also had persistent leukopenia and thrombocytopenia. He has had several bone marrow biopsies in the past, but no recurrence was ever documented. Mr. Sargent had undergone a terrible divorce. His divorce is finalized. He had to move back into his mother's home. He lost his insurance. He was unable to return to clinic for followup. He was last seen October 23, 2015. At that time, he was complaining of nonspecific symptoms such as fatigue and night sweats. He did not have evidence for recurrence of T-cell lymphoma. He has some adenopathy and we have elected to follow him. He had cytopenias. Mr. Sargent has recovered from his divorce. Financially he seems to be back in better shape. He has a job now pending to obtain insurance again. He has bought himself a new car, a corvette. He apparently was able to drive his car and lose his cares, however, he has felt bad recently to the point that he was feeling unwell despite his drive. He was admitted to [facility] and was seen by Dr. Romero Landrum, my partner. No records were available of his workup there. He comes into [facility] feeling unwell. He has felt progressively worse over the past two weeks. He was leukopenic, neutropenic, anemic and thrombocytopenic at the time of admission. He feels tired and fatigued. His joints hurt. He feels depressed. He has a new dry cough and nausea. Hematology/Oncology is consulted for evaluation of lymphoma. He denies any new adenopathy. No headaches. No vision change. He was able to work, but his work was rather sedentary. PAST MEDICAL HISTORY 1. Peripheral T-cell lymphoma 2. Persistent pancytopenia 3. Arthritis 4. Basal cell cancer right nose 5. Splenomegaly 6. Emphysema, 7. COPD, 8. History of jaundice PAST SURGICAL HISTORY 1. Cervical disk fusion 2. [id number] placement and removal 3. Bone marrow biopsy 4. Umbilical hernia repair, 5. Colonoscopy, 6. Hemorrhoid surgery 7. Left knee surgery 8. Left axillary lymph node biopsy. ALLERGIES OXYCODONE PENICILLIN FAMILY HISTORY Significant for maternal uncle with lymphoma. SOCIAL HISTORY Drinks one to two beers per day. He denies any tobacco or illicit drug use. His divorce has been finalized. PHYSICAL EXAMINATION VITAL SIGNS: T-max 101.3, temperature 99.9, heart rate 98, respiratory rate 18, blood pressure 113/58, saturation 99%. GENERAL: Mr. Sargent is a well-developed, well-nourished man who looks his stated age. HEENT: His pupils are round, reactive to light and accommodation. Sclerae are mildly icteric. Oropharynx is clear. NECK: Supple. LUNGS: Clear. CARDIOVASCULAR: Normal rate, rhythm. ABDOMEN: Benign. Mild hepatosplenomegaly appreciated. LOWER EXTREMITIES: Lower extremities with no edema. NEUROLOGIC: Nonfocal. LABORATORY DATA Significant for bilirubin of 2.2, BUN and creatinine are normal, pancytopenia with ANC of 700, hemoglobin 10.4, platelet count 41,000. ASSESSMENT/PLAN Mr. Sargent is a 61-year-old man with history of peripheral T-cell lymphoma. He presented with B symptoms and generalized feeling unwell. He has not been seen in hematology clinic since October of 2015. He reports intermittent symptoms that now have become progressively worse over the past two weeks. He was admitted to [facility]. It is unclear if a diagnosis was made. We discussed the risks and benefits of bone marrow biopsy evaluation to determine recurrence of peripheral T-cell lymphoma. He was agreeable to such. Clinically, there is no significant adenopathy appreciated. He will ultimately need staging CT scan chest, abdomen and pelvis. I defer as these scans may have been done by Dr. Landrum in [place]. We will review. We may consider ultrasound of liver given his hyperbilirubinemia to rule out other cause of the jaundice. A review of his electronic medical record shows intermittent elevation in his bilirubin. Emotional support is provided. We will coordinate bone marrow biopsy evaluation and review the results. Other etiology for the pancytopenia will be evaluated. He drinks beer regularly. Does not appear to have dependence. Alcoholic liver disease may be a consideration. MD KATHLEEN Echevarria/ /5:32 PM /6:42 PM DIAMOND
[2017-01-29 21:04] LABS: MEAN CORPUSCULAR HGB CONC 36.3 % (32.0-36.0)
[2017-01-30] VITALS: BP 112/64; PULSE 82; RESP 18; TEMP 98.3; O2SAT 99
[2017-01-30] MEDS: SODIUM CHLOR 0.9% 1000 ML INJ 1,000 ML IV SCH (01:15)
[2017-01-30] MEDS: VANCOMYCIN INJ 1,250 MG in SODIUM CHLOR 0.9% 250 ML INJ 250 ML IV SCH ×2 (01:27→14:00)
[2017-01-30] MEDS: CEFEPIME INJ 2,000 MG in SODIUM CHLORIDE 0.9% INJ 100 ML IV SCH ×3 (03:45→19:40)
[2017-01-30 04:00] VITALS: BP 115/65; PULSE 65; RESP 18; TEMP 100.4; O2SAT 98
[2017-01-30] MEDS: ACETAMINOPHEN 325 MG TAB PO PRN ×2 (04:36→17:12)
[2017-01-30 07:00] LABS: AUTOMATED NEUTROPHIL # 0.5 TH/MM3 (1.8-7.7); BASOPHIL % 0.6 % (0.0-2.0); HEMATOCRIT 28.7 % (39.0-51.0); LYMPH % 11.9 % (9.0-44.0); LYMPHOCYTE # 0.1 TH/MM3 (1.0-4.8); MEAN CELL VOLUME 87.3 FL (80.0-100.0); MEAN CORPUSCULAR HEMOGLOBIN 31.7 PG (27.0-34.0); MONO % 13.1 % (0.0-8.0); NEUT % 73.4 % (16.0-70.0); PLATELET COUNT 33 TH/MM3 (150-450); RED BLOOD COUNT 3.29 MIL/MM3 (4.50-5.90); RED CELL DISTRIBUTION WIDTH 15.1 % (11.6-17.2); WHITE BLOOD COUNT 0.7 TH/MM3 (4.0-11.0)
[2017-01-30 07:02] LABS: HEMO FLAGS AUTO DIFF
[2017-01-30 07:05] LABS: APTT (PATIENT) 29.2 SEC (24.3-30.1); INTERNATIONAL NORMALIZED RATIO 1.1 RATIO
[2017-01-30 07:25] LABS: ALT (GPT) 19 U/L (12-78); ANION GAP 9 MEQ/L (5-15); AST (GOT) 45 U/L (15-37); BICARBONATE 22.6 MEQ/L (21.0-32.0); BLOOD UREA NITROGEN 10 MG/DL (7-18); CHLORIDE 105 MEQ/L (98-107); GLOMERULAR FILTRATION RATE 75 ML/MIN (>89); POTASSIUM 3.9 MEQ/L (3.5-5.1); SODIUM (NA) 137 MEQ/L (136-145)
[2017-01-30 07:27] LABS: ALKALINE PHOSPHATASE 65 U/L (45-117); TOTAL BILIRUBIN ADULT 3.1 MG/DL (0.2-1.0)
[2017-01-30 08:00] VITALS: BP 122/81; PULSE 90; RESP 16; TEMP 98.9; O2SAT 99
[2017-01-30 08:09] LABS: BANDS 34 % (0-6); NEUTROPHIL # MANUAL DIFF 0.5 TH/MM3 (1.8-7.7); PLASMA CELLS 1 % (0-0); POLYS (SEG NEUTROPHILS) 40 % (16-70); WBC DIFF SAMPLE 100
[2017-01-30 08:10] LABS: PLATELET ESTIMATE SMEAR LOW (NORMAL); PLATELET MORPHOLOGY NORMAL (NORMAL); SCAN/DIFF FINAL DIFF MANUAL
--- NOTE | 2017-01-30 10:22 | HHI.FPPN ---
Subjective Remarks Patient was seen and examined this morning. He had bone marrow biopsy yesterday afternoon and minimal pain reported since then. He had an objective fever overnight but denies any warmth, chills, nausea, vomiting, shortness of breath, chest pain, new lesions. No issues with urination or bowel movements. (Dixie Wellington MD R1) Objective Vitals Vital Signs Date Time Temp Pulse Resp B/P Pulse Ox O2 Delivery O2 Flow Rate FiO2 01/30/17 08:00 98.9 90 16 122/81 99 01/30/17 04:00 100.4 65 18 115/65 98 01/30/17 00:00 98.3 82 18 112/64 99 01/29/17 20:00 100.3 85 17 115/65 99 01/29/17 15:50 98.6 92 20 109/65 99 01/29/17 12:06 99.9 98 18 113/58 99 I/O 01/29/17 01/29/17 01/29/17 01/30/17 01/30/17 01/30/17 07:00 15:00 23:00 07:00 15:00 23:00 Intake Total 870 ml 1200 ml Output Total 400 ml 640 ml 860 ml Balance 470 ml 1200 ml -640 ml -860 ml Intake Oral 500 ml 1200 ml IV Total 370 ml Output Urine Total 400 ml 640 ml 860 ml # Voids 3 # Bowel Movements 1 (Dixie Wellington MD R1) Result Diagram: 01/30/17 0610 01/30/17 0610 Imaging Last Impressions Chest X-Ray 01/28/17 1827 Signed Impressions: Service Date/Time: Saturday, January 28, 2017 18:36 - CONCLUSION: No acute disease. Nixon Valencia MD Objective Remarks GENERAL: Healthy-appearing male, lying in bed in no obvious distress. SKIN: No rashes, ecchymoses or lesions. Left lower extremity with chronic venous vascular changes including hyperpigmentation. NECK: Trachea midline. No JVD or lymphadenopathy palpable ENT: Upper dentures in place, poor dentition noted, mucous membranes are moist. Uvula midline. No evidence of mucosal erythema or exudate CARDIOVASCULAR: Regular rate and rhythm without murmurs, gallops, or rubs. RESPIRATORY: Clear to auscultation. GASTROINTESTINAL: Abdomen soft, non-tender, nondistended. Significant splenomegaly MUSCULOSKELETAL: Extremities without clubbing, cyanosis, or edema. NEUROLOGICAL: Awake and alert. Medications and IVs Inpatient Medications Acetaminophen (Tylenol) 1,000 mg ONCE ONCE PO Last administered on 01/28/17 19:13; Start 01/28/17 at 18:30; Stop 01/28/17 at 18:31; Status DC Acetaminophen 650 mg 650 mg Q6HR PRN PO TEMP>100.4F,PAIN1-10,IRRITABLE Last administered on 01/30/17 04:36; Start 01/29/17 at 05:00 Cefepime HCl 2000 mg/Sodium Chloride 100 ml @ 200 mls/hr Q8H IV Last administered on 01/30/17 03:45; Start 01/29/17 at 04:00 Cefepime HCl/ Sodium Chloride (Maxipime Inj/NS Inj) 100 ml @ 200 mls/hr ONCE STAT IV Last administered on 01/28/17 19:49; Start 01/28/17 at 18:27; Stop at 18:56; Status DC Lorazepam (Ativan Inj) 0.5 mg ONCE ONCE IV PUSH Last administered on 16:20; Start 01/29/17 at 16:15; Stop 01/29/17 at 16:16; Status DC Magnesium Hydroxide (Milk Of Magnesia Liq) 30 ml Q12H PRN PO CONSTIPATION; Start 01/28/17 at 21:30 Morphine Sulfate (Morphine Inj) 2 mg ONCE ONCE IV PUSH Last administered on 16:21; Start 01/29/17 at 16:15; Stop 01/29/17 at 16:16; Status DC Naloxone HCl 0.4 mg 0.4 mg UNSCH PRN IV SEE LABEL COMMENTS; Start 01/28/17 at 21:30 Ondansetron HCl (Zofran Inj) 4 mg Q6H PRN IVP NAUSEA OR VOMITING; Start at 21:30 Sodium Chloride (NS 1000 ml Inj) 1,000 ml @ 100 mls/hr Q10H IV Last administered on 01/29/17 15:15; Start 01/29/17 at 05:15 Temazepam (Restoril) 15 mg HS PRN PO INSOMNIA; Start 3/29/17 at 21:00 Vancomycin HCl/ Sodium Chloride (Vancomycin Inj/ NS 250 ml Inj) 262.5 ml @ 250 mls/hr Q12H IV Last administered on 01/30/17t 01:27; Start 01/29/17 at 02:00 ( Dixie Wellington MD R1) Urinary Catheter: No (Dixie Wellington MD R1) Vascular Central Line Catheter: No (Dixie Wellington MD R1) A/P Assessment and Plan 61 y/o Caucasion male with 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 He presented to [place] ED after recently having fevers (102.0 F), malaise, and an ANC < 1,000. He will be admitted for neutropenic fever of 102 F. Broad spectrum antibiotic have been started and medical oncology has been consulted. Discharge Planning Pending further workup of neutropenic fever (Dixie Wellington MD R1) Attending Attestation Pt. examined and case discussed with resident physicians I have read the above note and agree with the assessment/plan as discussed with me I was involved in all medical decision making for this patient Francis Sher MD (Francis Sher MD) Problem List: (1) Neutropenic fever Status: Acute Plan: Patient meets criteria for neutropenic fever on presentation with ANC of 1118 and febrile - Today's ANC is further decreasing at 518 Concern for occult infection versus relapse of lymphoma - Neutropenic precautions placed for entry to room Broad-spectrum antibiotics as below: - Cefepime 2 g IV every 8 hours - Vancomycin 1250 mg IV twice a day Tylenol 650 mg as needed for fevers greater than 100.4F Blood cultures 2 ordered, no growth to date Urine culture ordered, pending Peripheral blood smear ordered, showing predominantly normochromic and normocytic red cells, thrombocytopenia, no evidence of blasts or abnormal cells Bone marrow biopsy collected 01/29 and pending Hematology/oncology consult placed, patient known to Dr. Sanford Kern is increasing + splenomegaly, will order ultrasound of the abdomen (2) Anemia Status: Acute Plan: Likely secondary to myelosuppression from abnormal T-Cell proliferation / cancer recurrence Continue to monitor - s/p biopsy Transfuse if < 8.0 (3) Hyponatremia Status: Resolved Plan: Resolved with IV hydration (4) Alcohol abuse Status: Acute Plan: Drinks 2-3 beers every day with more on weekends, no withdrawal symptoms while inpatient so far Denies any history of withdrawal symptoms CIWA if indicated (5) DVT prophylaxis Status: Acute Plan: Hold Lovenox given thrombocytopenia of <50k Transfuse if < 10,000 (6) Nutrition, metabolism, and development symptoms Status: Acute Plan: Nutrition: Reg diet Electrolytes: Monitor and replete as needed DVT: SCDs (Dixie Wellington MD R1) Dixie Wellington MD R1 Jan 30, 2017 10:22 Francis Sher MD Jan 30, 2017 18:26
--- NOTE | 2017-01-30 11:53 | PD.ONC.PN ---
Subjective Subjective Remarks Tmax 100.4 overnight. He is resting comfortably. He tells me that he slept quite well last night. No complaints. Objective Data Date Time Temp Pulse Resp B/P Pulse Ox O2 Delivery O2 Flow Rate FiO2 01/30/17 08:00 98.9 90 16 122/81 99 01/30/17 04:00 100.4 65 18 115/65 98 01/30/17 00:00 98.3 82 18 112/64 99 01/29/17 20:00 100.3 85 17 115/65 99 01/29/17 15:50 98.6 92 20 109/65 99 01/29/17 12:06 99.9 98 18 113/58 99 Result Diagram: 01/30/17 0610 01/30/17 0610 Laboratory Results Laboratory Tests Test 01/30/17 06:10 White Blood Count 0.7 TH/MM3 Red Blood Count 3.29 MIL/MM3 Hemoglobin 10.4 GM/DL Hematocrit 28.7 % Mean Corpuscular Volume 87.3 FL Mean Corpuscular Hemoglobin 31.7 PG Mean Corpuscular Hemoglobin 36.3 % Concent Red Cell Distribution Width 15.1 % Platelet Count 33 TH/MM3 Mean Platelet Volume 8.3 FL Neutrophils (%) (Auto) 73.4 % Lymphocytes (%) (Auto) 11.9 % Monocytes (%) (Auto) 13.1 % Eosinophils (%) (Auto) 1.0 % Basophils (%) (Auto) 0.6 % Neutrophils # (Auto) 0.5 TH/MM3 Lymphocytes # (Auto) 0.1 TH/MM3 Monocytes # (Auto) 0.1 TH/MM3 Eosinophils # (Auto) 0.0 TH/MM3 Basophils # (Auto) 0.0 TH/MM3 CBC Comment AUTO DIFF Differential Total Cells 100 Counted Neutrophils % (Manual) 40 % Band Neutrophils % 34 % Lymphocytes % 15 % Monocytes % 10 % Neutrophils # (Manual) 0.5 TH/MM3 Differential Comment FINAL DIFF MANUAL Plasma Cells 1 % Platelet Estimate LOW Platelet Morphology Comment NORMAL Prothrombin Time 12.0 SEC Prothromb Time International 1.1 RATIO Ratio Activated Partial 29.2 SEC Thromboplast Time Sodium Level 137 MEQ/L Potassium Level 3.9 MEQ/L Chloride Level 105 MEQ/L Carbon Dioxide Level 22.6 MEQ/L Anion Gap 9 MEQ/L Blood Urea Nitrogen 10 MG/DL Creatinine 1.02 MG/DL Estimat Glomerular Filtration 75 ML/MIN Rate Random Glucose 104 MG/DL Calcium Level 8.1 MG/DL Total Bilirubin 3.1 MG/DL Aspartate Amino Transf 45 U/L (AST/SGOT) Alanine Aminotransferase 19 U/L (ALT/SGPT) Alkaline Phosphatase 65 U/L Total Protein 5.5 GM/DL Albumin 3.0 GM/DL Culture Results Microbiology Date/Time Procedure Status Source Growth 01/28/17 17:35 Aerobic Blood Culture - Preliminary Resulted Blood Peripheral NO GROWTH IN 2 DAYS 01/28/17 17:35 Anaerobic Blood Culture - Preliminary Resulted Blood Peripheral NO GROWTH IN 2 DAYS 01/28/17 17:35 Influenza Types A,B Antigen (GRICELDA) - Final Complete Nasal Washing NEGATIVE FOR FLU A AND B ANTIGEN.... 01/28/17 17:38 Aerobic Blood Culture - Preliminary Resulted Blood Peripheral NO GROWTH IN 2 DAYS 01/28/17 17:38 Anaerobic Blood Culture - Preliminary Resulted Blood Peripheral NO GROWTH IN 2 DAYS 01/28/17 22:20 Urine Culture Received Urine Clean Catch Pending Administered Medications Medications (Trade) Dose Ordered Sig/Mariaa Route PRN Reason Start Time Stop Time Status Last Admin Dose Admin Cefepime HCl 2000 mg/Sodium Chloride 100 ml @ 200 mls/hr Q8H IV 01/29/17 04:00 01/30/17 03:45 Vancomycin HCl/ Sodium Chloride (Vancomycin Inj/ NS 250 ml Inj) 262.5 ml @ 250 mls/hr Q12H IV 01/29/17 02:00 01/30/17 01:27 Acetaminophen 650 mg 650 mg Q6HR PRN PO TEMP>100.4F,PAIN1-10,IRRITABLE 01/29/17 05:00 01/30/17 04:36 Sodium Chloride (NS 1000 ml Inj) 1,000 ml @ 100 mls/hr Q10H IV 01/29/17 05:15 01/29/17 15:15 Objective Remarks GENERAL: Middle aged male lying in bed watching TV in no distress. SKIN: Warm and dry. BMB site asymptomatic. HEAD: Normocephalic. EYES: No injection or drainage. NECK: Supple, trachea midline. CARDIOVASCULAR: +S1/S2. No murmur appreciated. RESPIRATORY: Breath sounds equal bilaterally. No accessory muscle use. GASTROINTESTINAL: Abdomen soft, non-tender, nondistended. EXTREMITIES: No cyanosis, or edema. NEUROLOGICAL: No obvious focal deficit. Awake, alert, and oriented x3. Assessment/Plan Problem List: (1) Pancytopenia Status: Acute Plan: -- BMB done on 01/29. -- Concern that this may now be a T-cell LGL. Hx/Workup: He was originally diagnosed with a T- cell lymphoma in May of 2014. He had CHOP chemo x 8 cycles. He declined referral to a transplant center. His leukopenia and thrombocytopenia persisted but repeat BMB did not prove recurrence. He also had various bouts of recurrent fever and fatigue and night sweats. He has had several weeks of feeling fatigued, had nausea, cough and body aches before presenting to the emergency room. (2) Neutropenic fever Status: Acute Plan: -- On Cefepime, Vanco. -- Monitor for fevers -- Will get blood cultures for temp greater than 100.5. Assessment 61 y/o male with a history of T cell lymphoma admitted for B symptoms and pancytopenia. Plan 1. Await BMB results. 2. Monitor for fevers. 3. Monitor labs, transfuse as necessary. 4. Continue current antibiotics. 5. Supportive care. Attending Statement The exam, history, and the medical decision-making described in the above note were completed with the assistance of the mid-level provider. I reviewed and agree with the findings presented. I attest that I had a [id number] encounter with the patient on the same day, and personally performed and documented my assessment and findings in the medical record. Pt seen and examined. Biopsy site looks good, no hematoma but pt c/o ache. Flow cytometry still pending. Supportive GCSF, given neutropenia and fevers. Agree with blood cultures r/o infection. Suspect B symptoms from recurrent T cell lymphoma. Pending BM bx results. Lisbet Farley Jan 30, 2017 11:52 Josie Christina MD Jan 30, 2017 20:08
[2017-01-30 12:00] VITALS: BP 109/91; PULSE 92; RESP 16; TEMP 99.9; O2SAT 100
[2017-01-30 16:00] VITALS: BP 117/68; PULSE 99; RESP 18; TEMP 101.2; O2SAT 100
--- NOTE | 2017-01-30 18:12 | RADRPT ---
EXAM DATE/TIME: 01/30/2017 15:30 [facility] COMPARISON: No previous studies available for comparison. INDICATIONS : Increased bilirubin. Enlarged spleen. MEDICAL HISTORY : Neuropathy. Hiatal hernia. Stage III T cell lymphoma. Chemotherapy. Anemia. MRSA. SURGICAL HISTORY : Umbilical hernia repair. Oral surgery. Cervical fusion, plates and screws. Port placement and removal . Left knee surgery. ENCOUNTER: Initial ACUITY: 1 day PAIN SCORE: 0/10 LOCATION: Abdomen. MEASUREMENTS: LIVER: 17.1 cm length COMMON DUCT: 4 mm RIGHT KIDNEY: 9.9 x 4.2 x 4.9 cm LEFT KIDNEY: 11.7 x 4.2 x 4.4 cm SPLEEN: 20.9 cm length AORTA: 2.1 cm maximal FINDINGS: There is poor visualization of the pancreas, abdominal aorta and inferior vena cava due to shadowing bowel gas. The liver is enlarged. There is no focal hepatic mass. No biliary ductal dilatation is noted. There is hepatopetal flow within the portal vein. The wall of the gallbladder is mildly thic kened. Mobile gallstones are identified within the gallbladder lumen. Minimal pericholecystic fluid is noted. If there is clinical concern for acute cholecystitis a hepatobiliary scan may be helpful t o confirm cystic duct obstruction. The kidneys are unremarkable bilaterally. CONCLUSION: 1. Hepatosplenomegaly. 2. Thick-walled stone containing gallbladder with pericholecystic fluid raising the possibility of ac quechan cholecystitis. Clinical correlation is recommended. Nixon Valencia MD on January 30, 2017 at 18:03 Board Certified Radiologist. This report was verified electronically.
[2017-01-30 20:00] VITALS: BP 103/62; PULSE 72; RESP 17; TEMP 99; O2SAT 99
[2017-01-30] MEDS: TEMAZEPAM 15 MG CAP PO PRN (21:14)
[2017-01-30] MEDS: FILGRASTIM 300 MCG/ML VIAL SQ SCH (21:15)
[2017-01-31] VITALS: BP 109/65; PULSE 91; RESP 19; TEMP 97.3; O2SAT 100
[2017-01-31] MEDS: VANCOMYCIN INJ 1,250 MG in SODIUM CHLOR 0.9% 250 ML INJ 250 ML IV SCH ×2 (00:05→12:37)
[2017-01-31] MEDS: SODIUM CHLOR 0.9% 1000 ML INJ 1,000 ML IV SCH (03:42)
[2017-01-31] MEDS: CEFEPIME INJ 2,000 MG in SODIUM CHLORIDE 0.9% INJ 100 ML IV SCH ×3 (03:42→21:13)
[2017-01-31 04:00] VITALS: BP 103/56; PULSE 91; RESP 19; TEMP 100.2; O2SAT 97
[2017-01-31 07:42] LABS: AUTOMATED NEUTROPHIL # 1.6 TH/MM3 (1.8-7.7); BASOPHIL % 0.6 % (0.0-2.0); EOSINOPHIL % 0.5 % (0.0-4.0); HEMATOCRIT 25.9 % (39.0-51.0); LYMPH % 9.6 % (9.0-44.0); LYMPHOCYTE # 0.2 TH/MM3 (1.0-4.8); MEAN CELL VOLUME 88.2 FL (80.0-100.0); MEAN CORPUSCULAR HEMOGLOBIN 30.6 PG (27.0-34.0); MEAN CORPUSCULAR HGB CONC 34.8 % (32.0-36.0); MONO % 5.8 % (0.0-8.0); NEUT % 83.5 % (16.0-70.0); PLATELET COUNT 25 TH/MM3 (150-450); RED BLOOD COUNT 2.93 MIL/MM3 (4.50-5.90); RED CELL DISTRIBUTION WIDTH 15.5 % (11.6-17.2)
[2017-01-31 07:47] LABS: HEMO FLAGS AUTO DIFF
[2017-01-31 08:00] VITALS: BP 120/82; PULSE 95; RESP 16; TEMP 97.5; O2SAT 100
[2017-01-31 08:09] LABS: ALT (GPT) 20 U/L (12-78); ANION GAP 7 MEQ/L (5-15); AST (GOT) 52 U/L (15-37); BLOOD UREA NITROGEN 10 MG/DL (7-18); CHLORIDE 107 MEQ/L (98-107); GLOMERULAR FILTRATION RATE 83 ML/MIN (>89); POTASSIUM 3.7 MEQ/L (3.5-5.1); SODIUM (NA) 139 MEQ/L (136-145)
[2017-01-31 08:11] LABS: ALKALINE PHOSPHATASE 59 U/L (45-117); TOTAL BILIRUBIN ADULT 1.9 MG/DL (0.2-1.0)
[2017-01-31 09:05] LABS: BANDS 20 % (0-6); EOSINOPHILS 1 % (0-4); NEUTROPHIL # MANUAL DIFF 1.7 TH/MM3 (1.8-7.7); PLATELET ESTIMATE SMEAR LOW (NORMAL); PLATELET MORPHOLOGY NORMAL (NORMAL); POLYS (SEG NEUTROPHILS) 67 % (16-70); SCAN/DIFF FINAL DIFF MANUAL; WBC DIFF SAMPLE 100
--- NOTE | 2017-01-31 10:16 | PD.ONC.PN ---
Subjective Subjective Remarks Tmax 101.2 yesterday afternoon. Patient resting comfortably without complaint. He ate breakfast this AM without problems. No bleeding. Objective Data Date Time Temp Pulse Resp B/P Pulse Ox O2 Delivery O2 Flow Rate FiO2 01/31/17 08:00 97.5 95 16 120/82 100 01/31/17 04:00 100.2 91 19 103/56 97 01/31/17 00:00 97.3 91 19 109/65 100 01/30/17 20:00 99.0 72 17 103/62 99 01/30/17 16:00 101.2 99 18 117/68 100 01/30/17 12:00 99.9 92 16 109/91 100 01/31/17 01/31/17 01/31/17 07:00 15:00 23:00 Intake Total 1868 ml Output Total 400 ml Balance 1468 ml Result Diagram: 01/31/17 0710 01/31/17 0710 Laboratory Results Laboratory Tests Test 01/31/17 07:10 White Blood Count 2.0 TH/MM3 Red Blood Count 2.93 MIL/MM3 Hemoglobin 9.0 GM/DL Hematocrit 25.9 % Mean Corpuscular Volume 88.2 FL Mean Corpuscular Hemoglobin 30.6 PG Mean Corpuscular Hemoglobin 34.8 % Concent Red Cell Distribution Width 15.5 % Platelet Count 25 TH/MM3 Mean Platelet Volume 9.0 FL Neutrophils (%) (Auto) 83.5 % Lymphocytes (%) (Auto) 9.6 % Monocytes (%) (Auto) 5.8 % Eosinophils (%) (Auto) 0.5 % Basophils (%) (Auto) 0.6 % Neutrophils # (Auto) 1.6 TH/MM3 Lymphocytes # (Auto) 0.2 TH/MM3 Monocytes # (Auto) 0.1 TH/MM3 Eosinophils # (Auto) 0.0 TH/MM3 Basophils # (Auto) 0.0 TH/MM3 CBC Comment AUTO DIFF Differential Total Cells 100 Counted Neutrophils % (Manual) 67 % Band Neutrophils % 20 % Lymphocytes % 5 % Monocytes % 7 % Eosinophils % 1 % Neutrophils # (Manual) 1.7 TH/MM3 Differential Comment FINAL DIFF MANUAL Platelet Estimate LOW Platelet Morphology Comment NORMAL Red Cell Morphology Comment NORMAL Sodium Level 139 MEQ/L Potassium Level 3.7 MEQ/L Chloride Level 107 MEQ/L Carbon Dioxide Level 25.0 MEQ/L Anion Gap 7 MEQ/L Blood Urea Nitrogen 10 MG/DL Creatinine 0.93 MG/DL Estimat Glomerular Filtration 83 ML/MIN Rate Random Glucose 86 MG/DL Calcium Level 8.1 MG/DL Total Bilirubin 1.9 MG/DL Aspartate Amino Transf 52 U/L (AST/SGOT) Alanine Aminotransferase 20 U/L (ALT/SGPT) Alkaline Phosphatase 59 U/L Total Protein 4.8 GM/DL Albumin 2.7 GM/DL Culture Results Microbiology Date/Time Procedure Status Source Growth 01/28/17 17:35 Aerobic Blood Culture - Preliminary Resulted Blood Peripheral Gram Positive Cocci 01/28/17 17:35 Anaerobic Blood Culture - Preliminary Resulted Blood Peripheral NO GROWTH IN 2 DAYS 01/28/17 17:35 Influenza Types A,B Antigen (GRICELDA) - Final Complete Nasal Washing NEGATIVE FOR FLU A AND B ANTIGEN.... 01/28/17 17:38 Aerobic Blood Culture - Preliminary Resulted Blood Peripheral NO GROWTH IN 2 DAYS 01/28/17 17:38 Anaerobic Blood Culture - Preliminary Resulted Blood Peripheral NO GROWTH IN 2 DAYS 01/28/17 22:20 Urine Culture - Preliminary Resulted Urine Clean Catch NO GROWTH IN 24 HOURS. 01/30/17 20:27 Aerobic Blood Culture Received Blood Peripheral Pending 01/30/17 20:27 Anaerobic Blood Culture Received Blood Peripheral Pending 01/30/17 20:31 Aerobic Blood Culture Received Blood Peripheral Pending 01/30/17 20:31 Anaerobic Blood Culture Received Blood Peripheral Pending Administered Medications Medications (Trade) Dose Ordered Sig/Mariaa Route PRN Reason Start Time Stop Time Status Last Admin Dose Admin Temazepam 15 mg 15 mg HS PRN PO INSOMNIA 01/28/17 21:00 01/30/17 21:14 Cefepime HCl 2000 mg/Sodium Chloride 100 ml @ 200 mls/hr Q8H IV 01/29/17 04:00 01/31/17 03:42 Vancomycin HCl/ Sodium Chloride (Vancomycin Inj/ NS 250 ml Inj) 262.5 ml @ 250 mls/hr Q12H IV 01/29/17 02:00 01/31/17 00:05 Acetaminophen 650 mg 650 mg Q6HR PRN PO TEMP>100.4F,PAIN1-10,IRRITABLE 01/29/17 05:00 01/30/17 17:12 Sodium Chloride (NS 1000 ml Inj) 1,000 ml @ 100 mls/hr Q10H IV 01/29/17 05:15 01/31/17 03:42 Filgrastim (Neupogen Inj) 300 mcg DAILY@14 SQ 01/30/17 20:15 02/02/17 20:14 01/30/17 21:15 Objective Remarks GENERAL: Pleasant male, sitting upright in bed. SKIN: Warm and dry. HEAD: Normocephalic. EYES: No injection or drainage. NECK: Supple, trachea midline. CARDIOVASCULAR: +S1/S2. RESPIRATORY: Breath sounds equal bilaterally. No accessory muscle use. GASTROINTESTINAL: Abdomen soft, non-tender, nondistended. EXTREMITIES: No cyanosis, or edema. NEUROLOGICAL: awake and alert, normal speech. moving all extremities. Assessment/Plan Problem List: (1) Pancytopenia Status: Acute Plan: -- BMB done on 01/29--awaiting pathology -- Concern that this may now be a T-cell LGL. Hx/Workup: He was originally diagnosed with a T- cell lymphoma in May of 2014. He had CHOP chemo x 8 cycles. He declined referral to a transplant center. His leukopenia and thrombocytopenia persisted but repeat BMB did not prove recurrence. He also had various bouts of recurrent fever and fatigue and night sweats. He has had several weeks of feeling fatigued, had nausea, cough and body aches before presenting to the emergency room. (2) Neutropenic fever Status: Acute Plan: -- On Cefepime, Vanco. -- ID consulted --on Neupogen --Monitor for fevers -- Will get blood cultures for temp greater than 100.5. Assessment 61 y/o male with a history of T cell lymphoma admitted for B symptoms and pancytopenia. Plan 1. Await BMB results. 2. continue antibiotics 3. monitor CBC--expect will need transfusion in next few days if current trend continues Attending Statement The exam, history, and the medical decision-making described in the above note were completed with the assistance of the mid-level provider. I reviewed and agree with the findings presented. I attest that I had a [id number] encounter with the patient on the same day, and personally performed and documented my assessment and findings in the medical record. Had fever. Continue abx. bone marrow path pending. Continue supportive care. Sabrina Basurto Jan 31, 2017 10:16 Chauncey Louis MD Feb 01, 2017 12:01
--- NOTE | 2017-01-31 11:57 | HHI.FPPN ---
Subjective Remarks Patient was seen and examined this morning. He states he is tired and history of persistent sitting in bed more often and normal. He is getting up and moving around the room without difficulty. He denies shortness of breath, chest pain, rashes, joint pain. He is eating and drinking without difficulty. He is having normal bowel and bladder function. He denies feeling febrile but has been febrile the last 24 hours with a MAXIMUM TEMPERATURE of 101.2F at 4 PM yesterday (Dixie Wellington MD R1) Objective Vitals Vital Signs Date Time Temp Pulse Resp B/P Pulse Ox O2 Delivery O2 Flow Rate FiO2 01/31/17 08:00 97.5 95 16 120/82 100 01/31/17 04:00 100.2 91 19 103/56 97 01/31/17 00:00 97.3 91 19 109/65 100 01/30/17 20:00 99.0 72 17 103/62 99 01/30/17 16:00 101.2 99 18 117/68 100 01/30/17 12:00 99.9 92 16 109/91 100 I/O 01/30/17 01/30/17 01/30/17 01/31/17 01/31/17 01/31/17 07:00 15:00 23:00 07:00 15:00 23:00 Intake Total 1159 ml 1868 ml Output Total 860 ml 300 ml 600 ml 400 ml Balance -860 ml -300 ml 559 ml 1468 ml Intake Oral 120 ml 1868 ml IV Total 1039 ml Output Urine Total 860 ml 300 ml 600 ml 400 ml (Dixie Wellington MD R1) Result Diagram: 01/31/17 0710 01/31/17 0710 Imaging Last Impressions Abdomen Ultrasound 01/30/17 0000 Signed Impressions: Service Date/Time: Monday, January 30, 2017 15:30 - CONCLUSION: 1. Hepatosplenomegaly. 2. Thick-walled stone containing gallbladder with pericholecystic fluid raising the possibility of acute cholecystitis. Clinical correlation is recommended. Nixon Valencia MD Chest X-Ray 01/28/17 4037 Signed Impressions: Service Date/Time: Saturday, January 28, 2017 18:36 - CONCLUSION: No acute disease. Nixon Valencia MD Objective Remarks GENERAL: Healthy-appearing male, lying in bed in no obvious distress. SKIN: No rashes, ecchymoses or lesions. Left lower extremity with chronic venous vascular changes including hyperpigmentation. NECK: Trachea midline. No JVD or lymphadenopathy palpable ENT: Upper dentures in place, poor dentition noted, mucous membranes are moist. Uvula midline. No evidence of mucosal erythema or exudate CARDIOVASCULAR: Regular rate and rhythm without murmurs, gallops, or rubs. RESPIRATORY: Clear to auscultation. GASTROINTESTINAL: Abdomen soft, non-tender, nondistended. Significant splenomegaly MUSCULOSKELETAL: Extremities without clubbing, cyanosis, or edema. NEUROLOGICAL: Awake and alert. Procedures Bone marrow biopsy 01/29 Medications and IVs Inpatient Medications Acetaminophen (Tylenol) 1,000 mg ONCE ONCE PO Last administered on 01/28/17 19:13; Start 01/28/17 at 18:30; Stop 01/28/17 at 18:31; Status DC Acetaminophen 650 mg 650 mg Q6HR PRN PO TEMP>100.4F,PAIN1-10,IRRITABLE Last administered on 01/30/17 17:12; Start 01/29/17 at 05:00 Cefepime HCl 2000 mg/Sodium Chloride 100 ml @ 200 mls/hr Q8H IV Last administered on 01/31/17 03:42; Start 01/29/17 at 04:00 Cefepime HCl/ Sodium Chloride (Maxipime Inj/NS Inj) 100 ml @ 200 mls/hr ONCE STAT IV Last administered on 01/28/17 19:49; Start 01/28/17 at 18:27; Stop at 18:56; Status DC Filgrastim (Neupogen Inj) 300 mcg DAILY@14 SQ Last administered on 01/30/17 21 :15; Start 01/30/17 at 20:15; Stop 02/02/17 at 20:14 Lorazepam (Ativan Inj) 0.5 mg ONCE ONCE IV PUSH Last administered on 16:20; Start 01/29/17 at 16:15; Stop 01/29/17 at 16:16; Status DC Magnesium Hydroxide (Milk Of Magnesia Liq) 30 ml Q12H PRN PO CONSTIPATION; Start 01/28/17 at 21:30 Morphine Sulfate (Morphine Inj) 2 mg ONCE ONCE IV PUSH Last administered on 16:21; Start 01/29/17 at 16:15; Stop 01/29/17 at 16:16; Status DC Naloxone HCl 0.4 mg 0.4 mg UNSCH PRN IV SEE LABEL COMMENTS; Start 01/28/17 at 21:30 Ondansetron HCl (Zofran Inj) 4 mg Q6H PRN IVP NAUSEA OR VOMITING; Start at 21:30 Sodium Chloride (NS 1000 ml Inj) 1,000 ml @ 100 mls/hr Q10H IV Last administered on 01/31/17 03:42; Start 01/29/17 at 05:15 Temazepam (Restoril) 15 mg HS PRN PO INSOMNIA Last administered on 01/30/17 21 :14; Start 01/28/17 at 21:00 Vancomycin HCl/ Sodium Chloride (Vancomycin Inj/ NS 250 ml Inj) 262.5 ml @ 250 mls/hr Q12H IV Last administered on 01/31/17 00:05; Start 01/29/17 at 02:00 ( Dixie Wellington MD R1) Urinary Catheter: No (Dixie Wellington MD R1) Vascular Central Line Catheter: No (Dixie Wellington MD R1) A/P Assessment and Plan 61 y/o Caucasion male with 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 He presented to [place] ED after recently having fevers (102.0 F), malaise, and an ANC < 1,000. He will be admitted for neutropenic fever of 102 F. Broad spectrum antibiotic have been started and medical oncology has been consulted. Discharge Planning Pending further workup of neutropenic fever (Dixie Wellington MD R1) Attending Attestation Pt. examined and case discussed with resident physician I have read the above note and agree with the assessment/plan as discussed with me I was involved in all medical decision making for this patient Francis Sher MD (Francis Sher MD) Problem List: (1) Neutropenic fever Status: Acute Plan: Plan: New finding of positive cocci in pairs and chains on initial blood culture 01/28 , with fever and last 24 hours, repeat blood cultures collected 01/30 ID was consulted 01/30 Continue broad-spectrum antibiotics as below ANC improved to 1740 today Hospital course: Patient meets criteria for neutropenic fever on presentation with ANC of 1118 and febrile ANC less than 1000 on admission, downtrended initially but improving Concern for occult infection versus relapse of lymphoma Neutropenic precautions placed for entry to room Broad-spectrum antibiotics as below: - Cefepime 2 g IV every 8 hours - Vancomycin 1250 mg IV twice a day Tylenol 650 mg as needed for fevers greater than 100.4F Blood cultures 01/28 on admission, gram-positive cocci Review blood cultures Urine culture 01/28 showing no growth Peripheral blood smear ordered, showing predominantly normochromic and normocytic red cells, thrombocytopenia, no evidence of blasts or abnormal cells Bone marrow biopsy collected 01/29 and pending Hematology/oncology consult placed, patient known to Dr. Christina (2) Hepatosplenomegaly Status: Acute Plan: Bili elevated + splenomegaly noted. Patient is asymptomatic. US abdomen ordered 01/30: Hepatosplenomegaly, mildly thickened gallbladder wall multiple mobile gallstones identified. Kidneys were unremarkable. Obtain further imaging/work-up of abdomen if indicated by new symptoms or to further work-up of neutropenia (3) Anemia Status: Acute Plan: Likely secondary to myelosuppression from abnormal T-Cell proliferation / cancer recurrence Continue to monitor - s/p biopsy Transfuse if < 8.0 (4) Alcohol abuse Status: Acute Plan: Drinks 2-3 beers every day with more on weekends, no withdrawal symptoms while inpatient so far Denies any history of withdrawal symptoms CIWA if indicated (5) Hyponatremia Status: Resolved Plan: Resolved with IV hydration (6) DVT prophylaxis Status: Acute Plan: Hold Lovenox given thrombocytopenia of <50k Transfuse if < 10,000 (7) Nutrition, metabolism, and development symptoms Status: Acute Plan: Nutrition: Reg diet Electrolytes: Monitor and replete as needed DVT: SCDs given thrombocytopenic (Dixie Wellington MD R1) Dixie Wellington MD R1 Jan 31, 2017 11:57 Francis Sher MD Jan 31, 2017 13:16
[2017-01-31] MEDS: FILGRASTIM 300 MCG/ML VIAL SQ SCH (12:35)
[2017-01-31 14:00] VITALS: BP 109/68; PULSE 84; RESP 18; TEMP 97.9; O2SAT 100
[2017-01-31 16:00] VITALS: BP 108/61; PULSE 89; RESP 18; TEMP 99.7; O2SAT 100
[2017-01-31 20:00] VITALS: BP 106/63; PULSE 83; RESP 18; TEMP 98.8; O2SAT 100
[2017-01-31] MEDS: TEMAZEPAM 15 MG CAP PO PRN (21:12)
--- NOTE | 2017-01-31 22:28 | PD.ID.CON ---
History of Present Illness Service ID Consult Requested By Dr Sher Reason for Consult neutropenic fever Primary Care Physician José [facility] Diagnoses: History of Present Illness 61 yo male with ho Tcell lympjoma sp chemo 2 yrs ago with remission developed fatigue, malaise, unintetional weight loss and fever/chills for 2 weeks and presented to ER CBC shnowed pancytopenia with ANC 500-1700 range pt cont to have intermitted fevers up to 102 blood clx remain negative @ 1 and 3 days Started on cefepime and vancomycin Review of Systems Except as stated in HPI: all other systems reviewed are Neg Past Family Social History Allergies: Coded Allergies: Oxycodone (Verified Allergy, Severe, HIVES, 01/28/17) Penicillin (Verified Allergy, Intermediate, rash, 01/28/17) *MDRO Multi-Drug Resistant Organism (Verified Allergy, Unknown, 01/28/17) MRSA 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 Past Surgical History Left knee arthroscopy 1991 3 cervical fusions 2001, 2002, 2004 Umbilical hernia Biopsy of Lymph nodes in groin area Active Ordered Medications Medications where reviewed in EMR Antibiotics Include: cefepime vancomycin Family History Mother - healthy 80 Father - unknown Siblings - Brother healthy 48 y/o Maternal uncle with lymphoma Social History Tob - never EtOH - Beers - 1-2 beers a day, no withdrawals Illicits - denies MSDS coolant exposure Physical Exam Vital Signs Vital Signs Date Time Temp Pulse Resp B/P Pulse Ox O2 Delivery O2 Flow Rate FiO2 01/31/17 20:00 98.8 83 18 106/63 100 01/31/17 16:00 99.7 89 18 108/61 100 01/31/17 14:00 97.9 84 18 109/68 100 01/31/17 08:00 97.5 95 16 120/82 100 01/31/17 04:00 100.2 91 19 103/56 97 01/31/17 00:00 97.3 91 19 109/65 100 Physical Exam CONSTITUTIONAL/GENERAL: This is an adequately nourished patient, in no apparent distress. TUBES/LINES/DRAINS: SKIN: No jaundice, rashes, or lesions.Skin temperature appropriate. Not diaphoretic. HEAD: Atraumatic. Normocephalic. EYES: Pupils equal and round and reactive. Extraocular motions intact. No scleral icterus. No injection or drainage. Fundi not examined. ENT: Hearing grossly normal. Nose without bleeding or purulent drainage. Very poor dentition NECK: Trachea midline. Supple, nontender. No palpable thyroid enlargement or nodularity. CARDIOVASCULAR: Regular rate and rhythm without murmurs, gallops, or rubs. No JVD. Peripheral pulses symmetric. RESPIRATORY/CHEST: Symmetric, unlabored respirations. Clear to auscultation. Breath sounds equal bilaterally. No wheezes, rales, or rhonchi. GASTROINTESTINAL: Abdomen soft, non-tender, nondistended. No hepato-splenomegaly , or palpable masses. No guarding. Bowel sounds present. GENITOURINARY: Without palpable bladder distension. MUSCULOSKELETAL: Extremities without clubbing, cyanosis, or edema. No joint tenderness or effusion noted. No calf tenderness. No mottling or clubbing. LYMPHATICS: No palpable cervical or supraclavicular adenopathy. NEUROLOGICAL: Awake and alert. Motor and sensory grossly within normal limits. Follows commands. Normal speechMoves all extremities. PSYCHIATRIC: No obvious anxiety/depression. no apparent hallucinations or other psychotic thought process. Laboratory Laboratory Tests Test 01/31/17 07:10 White Blood Count 2.0 Red Blood Count 2.93 Hemoglobin 9.0 Hematocrit 25.9 Mean Corpuscular Volume 88.2 Mean Corpuscular Hemoglobin 30.6 Mean Corpuscular Hemoglobin 34.8 Concent Red Cell Distribution Width 15.5 Platelet Count 25 Mean Platelet Volume 9.0 Neutrophils (%) (Auto) 83.5 Lymphocytes (%) (Auto) 9.6 Monocytes (%) (Auto) 5.8 Eosinophils (%) (Auto) 0.5 Basophils (%) (Auto) 0.6 Neutrophils # (Auto) 1.6 Lymphocytes # (Auto) 0.2 Monocytes # (Auto) 0.1 Eosinophils # (Auto) 0.0 Basophils # (Auto) 0.0 CBC Comment AUTO DIFF Differential Total Cells 100 Counted Neutrophils % (Manual) 67 Band Neutrophils % 20 Lymphocytes % 5 Monocytes % 7 Eosinophils % 1 Neutrophils # (Manual) 1.7 Differential Comment FINAL DIFF MANUAL Platelet Estimate LOW Platelet Morphology Comment NORMAL Red Cell Morphology Comment NORMAL Sodium Level 139 Potassium Level 3.7 Chloride Level 107 Carbon Dioxide Level 25.0 Anion Gap 7 Blood Urea Nitrogen 10 Creatinine 0.93 Estimat Glomerular Filtration 83 Rate Random Glucose 86 Calcium Level 8.1 Total Bilirubin 1.9 Aspartate Amino Transf 52 (AST/SGOT) Alanine Aminotransferase 20 (ALT/SGPT) Alkaline Phosphatase 59 Total Protein 4.8 Albumin 2.7 Date/Time Procedure Status Source Growth 01/30/17 20:31 Aerobic Blood Culture - Preliminary Resulted Blood Peripheral NO GROWTH IN 1 DAY 01/30/17 20:31 Anaerobic Blood Culture - Preliminary Resulted Blood Peripheral NO GROWTH IN 1 DAY 01/28/17 22:20 Urine Culture - Final Complete Urine Clean Catch NO GROWTH IN 48 HOURS. 01/28/17 17:35 Influenza Types A,B Antigen (GRICELDA) - Final Complete Nasal Washing NEGATIVE FOR FLU A AND B ANTIGEN.... Result Diagram: 01/31/17 0710 01/31/17 0710 Imaging Last Impressions Abdomen Ultrasound 01/30/17 0000 Signed Impressions: Service Date/Time: Monday, January 30, 2017 15:30 - CONCLUSION: 1. Hepatosplenomegaly. 2. Thick-walled stone containing gallbladder with pericholecystic fluid raising the possibility of acute cholecystitis. Clinical correlation is recommended. Nixon Valencia MD Chest X-Ray 01/28/177 Signed Impressions: Service Date/Time: Saturday, January 28, 2017 18:36 - CONCLUSION: No acute disease. Nixon Valencia MD Assessment and Plan Assessment and Plan Fever Pancytopneic, suspected T cell luymphoma recurrence; BM bx P Acute calculous cholecysttis incidentally seen on US but clinically inapparent US showed Thick-walled stone containing gallbladder with pericholecystic fluid raising the possibility of acute cholecystitis. PCN allergy, unknown reaction type - cont cefepime - add flagyl - cont vanco for now - consult GI - fu blood clx untill final Patito Mallory MD Jan 31, 2017 22:28
[2017-02-01] VITALS: BP 100/64; PULSE 83; RESP 18; TEMP 96.4; O2SAT 100
[2017-02-01] MEDS: metroNIDAZOLE 500 MG INJ 100 ML IV SCH ×4 (01:32→23:51)
[2017-02-01] MEDS: VANCOMYCIN INJ 1,250 MG in SODIUM CHLOR 0.9% 250 ML INJ 250 ML IV SCH ×2 (02:34→16:20)
[2017-02-01 04:00] VITALS: BP 96/65; PULSE 82; RESP 18; TEMP 95.8; O2SAT 100
[2017-02-01] MEDS: SODIUM CHLOR 0.9% 1000 ML INJ 1,000 ML IV SCH ×2 (04:02→23:21)
[2017-02-01] MEDS: CEFEPIME INJ 2,000 MG in SODIUM CHLORIDE 0.9% INJ 100 ML IV SCH ×3 (04:41→19:59)
[2017-02-01 08:00] VITALS: BP 121/79; PULSE 75; RESP 18; TEMP 96.6; O2SAT 100
[2017-02-01 08:28] LABS: AUTOMATED NEUTROPHIL # 1.5 TH/MM3 (1.8-7.7); BASOPHIL % 0.5 % (0.0-2.0); EOSINOPHIL % 1.1 % (0.0-4.0); HEMATOCRIT 29.6 % (39.0-51.0); LYMPH % 11.9 % (9.0-44.0); LYMPHOCYTE # 0.2 TH/MM3 (1.0-4.8); MEAN CELL VOLUME 88.8 FL (80.0-100.0); MEAN CORPUSCULAR HEMOGLOBIN 30.3 PG (27.0-34.0); MEAN CORPUSCULAR HGB CONC 34.1 % (32.0-36.0); MONO % 7.8 % (0.0-8.0); NEUT % 78.7 % (16.0-70.0); PLATELET COUNT 28 TH/MM3 (150-450); RED BLOOD COUNT 3.34 MIL/MM3 (4.50-5.90); RED CELL DISTRIBUTION WIDTH 15.5 % (11.6-17.2); WHITE BLOOD COUNT 1.9 TH/MM3 (4.0-11.0)
[2017-02-01 08:33] LABS: HEMO FLAGS AUTO DIFF
[2017-02-01 08:59] LABS: ALKALINE PHOSPHATASE 69 U/L (45-117); ALT (GPT) 25 U/L (12-78); ANION GAP 7 MEQ/L (5-15); AST (GOT) 68 U/L (15-37); BICARBONATE 25.7 MEQ/L (21.0-32.0); BLOOD UREA NITROGEN 9 MG/DL (7-18); CHLORIDE 106 MEQ/L (98-107); GLOMERULAR FILTRATION RATE 85 ML/MIN (>89); POTASSIUM 3.6 MEQ/L (3.5-5.1); SODIUM (NA) 139 MEQ/L (136-145); TOTAL BILIRUBIN ADULT 2.1 MG/DL (0.2-1.0)
[2017-02-01 09:20] LABS: BANDS 42 % (0-6); CORRECTED NUCLEATED RBC 1 /100 WBC (0-0); DOHLE BODIES PRESENT (NONE SEEN); EOSINOPHILS 1 % (0-4); NEUTROPHIL # MANUAL DIFF 1.6 TH/MM3 (1.8-7.7); POLYS (SEG NEUTROPHILS) 40 % (16-70); WBC DIFF SAMPLE 100
[2017-02-01 09:21] LABS: PLATELET ESTIMATE SMEAR LOW (NORMAL); PLATELET MORPHOLOGY NORMAL (NORMAL); SCAN/DIFF FINAL DIFF MANUAL
--- NOTE | 2017-02-01 09:27 | HHI.FPPN ---
Subjective Remarks Patient was seen and examined this morning. He is tired, same as yesterday. Feels down because his friend has been diagnosed with recurrent cancer in the last week. He denies any fevers, chills, rashes, abdominal pain, chest pain, diarrhea, constipation. He feels agreeable to PT today. (Dixie Wellington MD R1) Objective Vitals Vital Signs Date Time Temp Pulse Resp B/P Pulse Ox O2 Delivery O2 Flow Rate FiO2 02/01/17 04:00 95.8 82 18 96/65 100 02/01/17 00:00 96.4 83 18 100/64 100 01/31/17 20:00 98.8 83 18 106/63 100 01/31/17 16:00 99.7 89 18 108/61 100 01/31/17 14:00 97.9 84 18 109/68 100 I/O 01/31/17 01/31/17 01/31/17 02/01/17 02/01/17 02/01/17 07:00 15:00 23:00 07:00 15:00 23:00 Intake Total 1868 ml 720 ml 480 ml Output Total 400 ml 600 ml 1350 ml Balance 1468 ml 120 ml -1350 ml 480 ml Intake Oral 1868 ml 720 ml 480 ml Output Urine Total 400 ml 600 ml 1350 ml # Voids 3 # Bowel Movements 1 (Dixie Wellington MD R1) Result Diagram: 02/01/17 0800 02/01/17 0800 Imaging Last Impressions Abdomen Ultrasound 01/30/17 0000 Signed Impressions: Service Date/Time: Monday, January 30, 2017 15:30 - CONCLUSION: 1. Hepatosplenomegaly. 2. Thick-walled stone containing gallbladder with pericholecystic fluid raising the possibility of acute cholecystitis. Clinical correlation is recommended. Nixon Valencia MD Chest X-Ray 01/28/17 1827 Signed Impressions: Service Date/Time: Saturday, January 28, 2017 18:36 - CONCLUSION: No acute disease. Nixon Valencia MD Objective Remarks GENERAL: Healthy-appearing male, lying in bed in no obvious distress. SKIN: No rashes, ecchymoses or lesions. Left lower extremity with chronic stable venous vascular changes including hyperpigmentation. NECK: Trachea midline. No JVD or lymphadenopathy palpable. ENT: Upper dentures in place, poor dentition noted, mucous membranes are moist. Uvula midline. No evidence of mucosal erythema or exudate CARDIOVASCULAR: Regular rate and rhythm without murmurs, gallops, or rubs. RESPIRATORY: Clear to auscultation. No crackles or wheezes. GASTROINTESTINAL: Abdomen soft, non-tender, nondistended. Significant splenomegaly. MUSCULOSKELETAL: Extremities without clubbing, cyanosis, or edema. NEUROLOGICAL: Awake and alert. Procedures Bone marrow biopsy 01/29 Medications and IVs Inpatient Medications Acetaminophen (Tylenol) 1,000 mg ONCE ONCE PO Last administered on 01/28/17 19:13; Start 01/28/17 at 18:30; Stop 01/28/17 at 18:31; Status DC Acetaminophen 650 mg 650 mg Q6HR PRN PO TEMP>100.4F,PAIN1-10,IRRITABLE Last administered on 01/30/17 17:12; Start 01/29/17 at 05:00 Cefepime HCl 2000 mg/Sodium Chloride 100 ml @ 200 mls/hr Q8H IV Last administered on 02/01/17 04:41; Start 01/29/17 at 04:00 Cefepime HCl/ Sodium Chloride (Maxipime Inj/NS Inj) 100 ml @ 200 mls/hr ONCE STAT IV Last administered on 01/28/17 19:49; Start 01/28/17 at 18:27; Stop at 18:56; Status DC Filgrastim 300 mcg 300 mcg DAILY@14 SQ Last administered on 01/31/17 12:35; Start 01/30/17 at 20:15; Stop 02/02/17 at 20:14 Lorazepam (Ativan Inj) 0.5 mg ONCE ONCE IV PUSH Last administered on 16:20; Start 01/29/17 at 16:15; Stop 01/29/17 at 16:16; Status DC Magnesium Hydroxide (Milk Of Magnesia Liq) 30 ml Q12H PRN PO CONSTIPATION; Start 01/28/17 at 21:30 Metronidazole (Flagyl 500 Mg Inj) 100 ml @ 100 mls/hr Q8H IV Last administered on 02/01/17 01:32; Start 02/01/17 at 00:45 Morphine Sulfate (Morphine Inj) 2 mg ONCE ONCE IV PUSH Last administered on 16:21; Start 01/29/17 at 16:15; Stop 01/29/17 at 16:16; Status DC Naloxone HCl 0.4 mg 0.4 mg UNSCH PRN IV SEE LABEL COMMENTS; Start 01/28/17 at 21:30 Ondansetron HCl (Zofran Inj) 4 mg Q6H PRN IVP NAUSEA OR VOMITING; Start at 21:30 Sodium Chloride (NS 1000 ml Inj) 1,000 ml @ 100 mls/hr Q10H IV Last administered on 02/01/17 04:02; Start 01/29/17 at 05:15 Temazepam (Restoril) 15 mg HS PRN PO INSOMNIA Last administered on 01/31/17 21: 12; Start 01/28/17 at 21:00 Vancomycin HCl/ Sodium Chloride (Vancomycin Inj/ NS 250 ml Inj) 262.5 ml @ 250 mls/hr Q12H IV Last administered on 02/01/17 02:34; Start 01/29/17 at 02:00 ( Dixie Wellington MD R1) Urinary Catheter: No (Dixie Wellington MD R1) Vascular Central Line Catheter: No (Dixie Wellington MD R1) A/P Assessment and Plan 61 y/o Caucasion male with 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 He presented to [place] ED after recently having fevers (102.0 F), malaise, and an ANC < 1,000. He will be admitted for neutropenic fever of 102 F. Broad spectrum antibiotic have been started and medical oncology has been consulted. Discharge Planning Unclear, pending further workup of neutropenic fever (Dixie Wellington MD R1) Attending Attestation Patient seen and examined, discussed with resident team. I agree with assessment and management as documented and discussed with me. Pt afebrile for 24 hours. Pt reports that he is starting to feel a bit better, but still complains of significant fatigue. Await bone marrow pathology. (Leonie Almazan MD) Problem List: (1) Neutropenic fever Status: Acute Plan: Plan: New finding of positive cocci in pairs and chains on initial blood culture 01/28 , with some low temperatures over last 24 hours, repeat blood cultures collected 01/30, continue to follow ID was consulted 01/30appreciate recommendations, added Flagyl and recommended GI consult Continue broad-spectrum antibiotics as below ANC improved to 1740 on 01/31, differential is pending on 02/19 Follow bone marrow biopsy Daily CBC Hospital course: Patient meets criteria for neutropenic fever on presentation with ANC of 1118 and febrile ANC less than 1000 on admission, downtrended initially but improving Concern for occult infection versus relapse of lymphoma Neutropenic precautions placed for entry to room Broad-spectrum antibiotics as below: - Cefepime 2g IV every 8 hours (01/28 ) - Vancomycin 1250 mg IV twice a day (01/28 ) - Flagyl 500 mg IV every 8 hours (01/31 ) Tylenol 650 mg as needed for fevers greater than 100.4F Blood cultures 01/28 on admission, gram-positive cocci Repeat blood cultures 01/30 so far showing no growth Urine culture 01/28 showing no growth Peripheral blood smear ordered, showing predominantly normochromic and normocytic red cells, thrombocytopenia, no evidence of blasts or abnormal cells Bone marrow biopsy collected 01/29 and pending Hematology/oncology consult placed, patient known to Dr. Christina (2) Hepatosplenomegaly Status: Acute Plan: Plan: Follow clinically GI consulted per ID, appreciate recommendations Hospital course: Bili elevated + splenomegaly noted. Patient is asymptomatic. US abdomen ordered 01/30: Hepatosplenomegaly, mildly thickened gallbladder wall multiple mobile gallstones identified. Kidneys were unremarkable. Obtain further imaging/work-up of abdomen if indicated by new symptoms or to further work-up of neutropenia (3) Anemia Status: Acute Plan: Likely secondary to myelosuppression from abnormal T-Cell proliferation / cancer recurrence Continue to monitor - s/p biopsy Transfuse if < 8.0 (4) Alcohol abuse Status: Chronic Plan: Drinks 2-3 beers every day with more on weekends, no withdrawal symptoms while inpatient so far Denies any history of withdrawal symptoms CIWA if indicated (5) Hyponatremia Status: Resolved Plan: Resolved with IV hydration (6) DVT prophylaxis Status: Acute Plan: Hold Lovenox given thrombocytopenia of <50k Transfuse if < 10,000 (7) Nutrition, metabolism, and development symptoms Status: Acute Plan: Fluids: NS @ 100/hr Nutrition: Reg diet Electrolytes: Monitor and replete as needed DVT: SCDs given thrombocytopenic Discussed with Dr. Almazan (Dixie Wellington MD R1) Dixie Wellington MD R1 Feb 01, 2017 09:27 Leonie Almazan MD Feb 01, 2017 20:09
--- NOTE | 2017-02-01 10:23 | PD.CONS ---
HPI History of Present Illness This is a 61 year old male being consulted for GI due to cholecystitis. Abdominal US 01/30/17 showed hepatosplenomegaly, thick-walled stone containing gallbladder with pericholecystic fluid raising the possibility of acute cholecystitis. Denies history of any issues with his gallbladder. 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 In 2014 he was told he was in remission and has not been going to regular followup visits due to no longer having health insurance. He presented to the ER with reports of having high fevers (102F), malaise, fatigue, and joint pain. ANC <1000. He has been feeling depressed. Had episode of emesis at home, liquid, no blood. Denies having abdominal pain or diarrhea. Today he reports he is still feeling fatigued. Denies abdominal pain, no diarrhea or constipation. Denies nausea or vomiting. Reports he has been afebrile. (Vianney Lui) PFSH Past Medical History -Peripheral T-Cell Lymphoma--Diagnosed December 2013, Dr. Ruiz -Chemotherapy in 2013, total 9 rounds of chemo per patient -Infusion port infection with MRSA Past Surgical History -Left knee arthroscopy 1991 -Cervical fusions x 3 (2001, 2002, 2003) -Umbilical hernia -Lymph node biopsy in groin area (Vianney Lui) Coded Allergies: Oxycodone (Verified Allergy, Severe, HIVES, 01/28/17) Penicillin (Verified Allergy, Intermediate, rash, 01/28/17) *MDRO Multi-Drug Resistant Organism (Verified Allergy, Unknown, 01/28/17) MRSA Medications Current Medications Medications (Trade) Dose Ordered Sig/Mariaa Route PRN Reason Start Time Stop Time Status Last Admin Dose Admin Ondansetron HCl (Zofran Inj) 4 mg Q6H PRN IVP NAUSEA OR VOMITING 01/28/17 21:30 Magnesium Hydroxide (Milk Of Magnesia Liq) 30 ml Q12H PRN PO CONSTIPATION 01/28/17 21:30 Temazepam (Restoril) 15 mg HS PRN PO INSOMNIA 01/28/17 21:00 01/31/17 21:12 Naloxone HCl 0.4 mg 0.4 mg UNSCH PRN IV SEE LABEL COMMENTS 01/28/17 21:30 Cefepime HCl 2000 mg/Sodium Chloride 100 ml @ 200 mls/hr Q8H IV 01/29/17 04:00 02/01/17 04:41 Vancomycin HCl/ Sodium Chloride (Vancomycin Inj/ NS 250 ml Inj) 262.5 ml @ 250 mls/hr Q12H IV 01/29/17 02:00 02/01/17 02:34 Acetaminophen 650 mg 650 mg Q6HR PRN PO TEMP>100.4F,PAIN1-10,IRRITABLE 01/29/17 05:00 01/30/17 17:12 Sodium Chloride (NS 1000 ml Inj) 1,000 ml @ 100 mls/hr Q10H IV 01/29/17 05:15 02/01/17 04:02 Filgrastim 300 mcg 300 mcg DAILY@14 SQ 01/30/17 20:15 02/02/17 20:14 01/31/17 12:35 Metronidazole (Flagyl 500 Mg Inj) 100 ml @ 100 mls/hr Q8H IV 02/01/17 00:45 02/01/17 01:32 Family History -Maternal Uncle-Lymphoma Social History -Employed - -Tobacco:Denies -ETOH: 1-2 beers a day -Illicit drugs: Denies -[employer] exposure--worked there between 2360-1100 (Vianney Lui) Review of Systems Constitutional: COMPLAINS OF: Diaphoretic episodes, Fatigue, Fever, Chills, Night Sweats, DENIES: Weight gain, Weight loss, Dizziness, Change in appetite Endocrine: DENIES: Polydipsia, Polyuria Eyes: DENIES: Blurred vision, Photosensitivity, Double Vision Respiratory: COMPLAINS OF: Cough, DENIES: Wheezing, Hemoptysis, Sputum production, Shortness of breath Cardiovascular: DENIES: Chest pain, Palpitations, Syncope, Lower Extremity Edema, Orthopnea, Claudication Gastrointestinal: DENIES: Abdominal pain, Black stools, Bloody stools, Constipation, Diarrhea, Nausea, Vomiting, Difficulty Swallowing, Anorexia, Odynophagia, Swelling of Abdomen, Heartburn, Hematemesis Genitourinary: DENIES: Urinary frequency, Urinary incontinence, Urgency, Hematuria, Dysuria, Nocturia Musculoskeletal: COMPLAINS OF: Joint pain, Muscle aches, Stiffness, Back pain, Neck pain, DENIES: Joint Swelling Integumentary: DENIES: Abnormal pigmentation, Nail changes, Pruritus, Rash, Jaundice Hematologic/lymphatic: DENIES: Bruising, Lymphadenopathy Immunologic/allergic: DENIES: Eczema, Urticaria Neurologic: COMPLAINS OF: Headache, DENIES: Abnormal gait, Localized weakness , Paresthesias Psychiatric: COMPLAINS OF: Anxiety, Depression, DENIES: Confusion, Mood changes, Agitation, Suicidal Ideation (Vianney Lui) GI Exam Vitals I&O Vital Signs Date Time Temp Pulse Resp B/P Pulse Ox O2 Delivery O2 Flow Rate FiO2 02/01/17 08:00 96.6 75 18 121/79 100 02/01/17 04:00 95.8 82 18 96/65 100 02/01/17 00:00 96.4 83 18 100/64 100 01/31/17 20:00 98.8 83 18 106/63 100 01/31/17 16:00 99.7 89 18 108/61 100 01/31/17 14:00 97.9 84 18 109/68 100 I/O 01/31/17 01/31/17 01/31/17 02/01/17 02/01/17 02/01/17 07:00 15:00 23:00 07:00 15:00 23:00 Intake Total 1868 ml 720 ml 480 ml 120 ml Output Total 400 ml 600 ml 1350 ml Balance 1468 ml 120 ml -1350 ml 480 ml 120 ml Intake Oral 1868 ml 720 ml 480 ml 120 ml Output Urine Total 400 ml 600 ml 1350 ml # Voids 3 # Bowel Movements 1 Imaging Last Impressions Abdomen Ultrasound 01/30/17 0000 Signed Impressions: Service Date/Time: Monday, January 30, 2017 15:30 - CONCLUSION: 1. Hepatosplenomegaly. 2. Thick-walled stone containing gallbladder with pericholecystic fluid raising the possibility of acute cholecystitis. Clinical correlation is recommended. Nixon Valencia MD Chest X-Ray 01/28/17 1827 Signed Impressions: Service Date/Time: Saturday, January 28, 2017 18:36 - CONCLUSION: No acute disease. Nixon Valencia MD Laboratory Test 02/01/17 08:00 White Blood Count 1.9 TH/MM3 Red Blood Count 3.34 MIL/MM3 Hemoglobin 10.1 GM/DL Hematocrit 29.6 % Mean Corpuscular Volume 88.8 FL Mean Corpuscular Hemoglobin 30.3 PG Mean Corpuscular Hemoglobin 34.1 % Concent Red Cell Distribution Width 15.5 % Platelet Count 28 TH/MM3 Mean Platelet Volume 9.3 FL Neutrophils (%) (Auto) 78.7 % Lymphocytes (%) (Auto) 11.9 % Monocytes (%) (Auto) 7.8 % Eosinophils (%) (Auto) 1.1 % Basophils (%) (Auto) 0.5 % Neutrophils # (Auto) 1.5 TH/MM3 Lymphocytes # (Auto) 0.2 TH/MM3 Monocytes # (Auto) 0.1 TH/MM3 Eosinophils # (Auto) 0.0 TH/MM3 Basophils # (Auto) 0.0 TH/MM3 CBC Comment AUTO DIFF Differential Total Cells 100 Counted Neutrophils % (Manual) 40 % Band Neutrophils % 42 % Lymphocytes % 11 % Monocytes % 6 % Eosinophils % 1 % Neutrophils # (Manual) 1.6 TH/MM3 Nucleated Red Blood Cells 1 /100 WBC Differential Comment FINAL DIFF MANUAL Dohle Bodies PRESENT Platelet Estimate LOW Platelet Morphology Comment NORMAL Sodium Level 139 MEQ/L Potassium Level 3.6 MEQ/L Chloride Level 106 MEQ/L Carbon Dioxide Level 25.7 MEQ/L Anion Gap 7 MEQ/L Blood Urea Nitrogen 9 MG/DL Creatinine 0.91 MG/DL Estimat Glomerular Filtration 85 ML/MIN Rate Random Glucose 98 MG/DL Calcium Level 8.1 MG/DL Total Bilirubin 2.1 MG/DL Aspartate Amino Transf 68 U/L (AST/SGOT) Alanine Aminotransferase 25 U/L (ALT/SGPT) Alkaline Phosphatase 69 U/L Total Protein 5.5 GM/DL Albumin 3.1 GM/DL Date/Time Procedure Status Source Growth 01/30/17 20:31 Aerobic Blood Culture - Preliminary Resulted Blood Peripheral NO GROWTH IN 1 DAY 01/30/17 20:31 Anaerobic Blood Culture - Preliminary Resulted Blood Peripheral NO GROWTH IN 1 DAY 01/28/17 22:20 Urine Culture - Final Complete Urine Clean Catch NO GROWTH IN 48 HOURS. 01/28/17 17:35 Influenza Types A,B Antigen (GRICELDA) - Final Complete Nasal Washing NEGATIVE FOR FLU A AND B ANTIGEN.... 01/28/17 17:35 Aerobic Blood Culture - Final Resulted Blood Peripheral Staph Sp Coagulase Negative 01/28/17 17:35 Anaerobic Blood Culture - Preliminary Resulted Blood Peripheral NO GROWTH IN 3 DAYS Physical Examination HEENT: PERRLA; normocephalic; atraumatic; no jaundice. NECK: Neck is supple, no JVD, no lymphadenopathy. CHEST: CTA CARDIAC: RRR with no murmur gallop or rubs. ABDOMEN: Soft, nondistended, nontender; no hepatosplenomegaly; bowel sounds x 4 quadrants EXTREMITIES: No clubbing, cyanosis, or edema. SKIN: Normal; no rash; no jaundice. 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 Patient denies abdominal pain. No N/V/D. Abdomen Ultrasound 01/30 1. Hepatosplenomegaly. 2.Thick-walled stone containing gallbladder with pericholecystic fluid raising the possibility of acute cholecystitis. T. Bilirubin 2.1. WBC 1.9 -Hepatosplenomegaly, see imaging above. Patient asymptomatic. Thrombocytopenia, 28 -Neutropenic Fever. Blood culture 01/28 positive cocci in pairs and chains. Repeat blood cultures were collected on 01/30, no growth so far. Urine culture no growth. Peripheral blood smear, pancytopenia. ID following. Broad spectrum antibiotics. Bone marrow biopsy (01/30) pending. ANC improved 01/31 1740 -Anemia, likely secondary to myelosuppression from abnormal T-Cell proliferation /cancer recurrence per primary. H/H 10.11/30.6. PLAN: -CT abdomen -Monitor CBC -Regular diet -Bone marrow biopsy -Transfuse if Hgb <8 -Transfuse if platelets <10,000 -Further recommendations to follow based on results of above. Patient see and examined by Dr. Luna and myself and this note is written on his behalf. (Vianney Lui) Physician Comments Seen and examined with HARSHA, doing well. CT and HIDA ordered. Bone marrow biopsy -p. Will follow. Thank you (Kelley Luna MD) Vianney Lui Feb 01, 2017 10:23 Kelley Luna MD Feb 01, 2017 14:33
--- NOTE | 2017-02-01 10:40 | PD.ONC.PN ---
Subjective Subjective Remarks Afebrile overnight. Patient resting with friend at bedside. He denies any acute complaints. Objective Data Date Time Temp Pulse Resp B/P Pulse Ox O2 Delivery O2 Flow Rate FiO2 02/01/17 08:00 96.6 75 18 121/79 100 02/01/17 04:00 95.8 82 18 96/65 100 02/01/17 00:00 96.4 83 18 100/64 100 01/31/17 20:00 98.8 83 18 106/63 100 01/31/17 16:00 99.7 89 18 108/61 100 01/31/17 14:00 97.9 84 18 109/68 100 02/01/17 02/01/17 02/01/17 07:00 15:00 23:00 Intake Total 480 ml 120 ml Balance 480 ml 120 ml Result Diagram: 02/01/17 0800 02/01/17 0800 Laboratory Results Laboratory Tests Test 02/01/17 08:00 White Blood Count 1.9 TH/MM3 Red Blood Count 3.34 MIL/MM3 Hemoglobin 10.1 GM/DL Hematocrit 29.6 % Mean Corpuscular Volume 88.8 FL Mean Corpuscular Hemoglobin 30.3 PG Mean Corpuscular Hemoglobin 34.1 % Concent Red Cell Distribution Width 15.5 % Platelet Count 28 TH/MM3 Mean Platelet Volume 9.3 FL Neutrophils (%) (Auto) 78.7 % Lymphocytes (%) (Auto) 11.9 % Monocytes (%) (Auto) 7.8 % Eosinophils (%) (Auto) 1.1 % Basophils (%) (Auto) 0.5 % Neutrophils # (Auto) 1.5 TH/MM3 Lymphocytes # (Auto) 0.2 TH/MM3 Monocytes # (Auto) 0.1 TH/MM3 Eosinophils # (Auto) 0.0 TH/MM3 Basophils # (Auto) 0.0 TH/MM3 CBC Comment AUTO DIFF Differential Total Cells 100 Counted Neutrophils % (Manual) 40 % Band Neutrophils % 42 % Lymphocytes % 11 % Monocytes % 6 % Eosinophils % 1 % Neutrophils # (Manual) 1.6 TH/MM3 Nucleated Red Blood Cells 1 /100 WBC Differential Comment FINAL DIFF MANUAL Dohle Bodies PRESENT Platelet Estimate LOW Platelet Morphology Comment NORMAL Sodium Level 139 MEQ/L Potassium Level 3.6 MEQ/L Chloride Level 106 MEQ/L Carbon Dioxide Level 25.7 MEQ/L Anion Gap 7 MEQ/L Blood Urea Nitrogen 9 MG/DL Creatinine 0.91 MG/DL Estimat Glomerular Filtration 85 ML/MIN Rate Random Glucose 98 MG/DL Calcium Level 8.1 MG/DL Total Bilirubin 2.1 MG/DL Aspartate Amino Transf 68 U/L (AST/SGOT) Alanine Aminotransferase 25 U/L (ALT/SGPT) Alkaline Phosphatase 69 U/L Total Protein 5.5 GM/DL Albumin 3.1 GM/DL Culture Results Microbiology Date/Time Procedure Status Source Growth 01/30/17 20:27 Aerobic Blood Culture - Preliminary Resulted Blood Peripheral NO GROWTH IN 1 DAY 01/30/17 20:27 Anaerobic Blood Culture - Preliminary Resulted Blood Peripheral NO GROWTH IN 1 DAY 01/30/17 20:31 Aerobic Blood Culture - Preliminary Resulted Blood Peripheral NO GROWTH IN 1 DAY 01/30/17 20:31 Anaerobic Blood Culture - Preliminary Resulted Blood Peripheral NO GROWTH IN 1 DAY Administered Medications Medications (Trade) Dose Ordered Sig/Mariaa Route PRN Reason Start Time Stop Time Status Last Admin Dose Admin Temazepam 15 mg 15 mg HS PRN PO INSOMNIA 01/28/17 21:00 01/31/17 21:12 Cefepime HCl 2000 mg/Sodium Chloride 100 ml @ 200 mls/hr Q8H IV 01/29/17 04:00 02/01/17 04:41 Vancomycin HCl/ Sodium Chloride (Vancomycin Inj/ NS 250 ml Inj) 262.5 ml @ 250 mls/hr Q12H IV 01/29/17 02:00 02/01/17 02:34 Acetaminophen 650 mg 650 mg Q6HR PRN PO TEMP>100.4F,PAIN1-10,IRRITABLE 01/29/17 05:00 01/30/17 17:12 Sodium Chloride (NS 1000 ml Inj) 1,000 ml @ 100 mls/hr Q10H IV 01/29/17 05:15 02/01/17 04:02 Filgrastim 300 mcg 300 mcg DAILY@14 SQ 01/30/17 20:15 02/02/17 20:14 01/31/17 12:35 Metronidazole (Flagyl 500 Mg Inj) 100 ml @ 100 mls/hr Q8H IV 02/01/17 00:45 02/01/17 09:49 Objective Remarks GENERAL: Middle aged male, sitting up in bed in [facility]. SKIN: Warm and dry. HEAD: Normocephalic. EYES: No injection or drainage. NECK: Supple, trachea midline. CARDIOVASCULAR: +S1/S2. RESPIRATORY: Breath sounds equal bilaterally. No accessory muscle use. GASTROINTESTINAL: Abdomen soft, non-tender, nondistended. EXTREMITIES: No cyanosis, or edema. NEUROLOGICAL: aox3, normal speech. moving extremities. Assessment/Plan Problem List: (1) Pancytopenia Status: Acute Plan: -- BMB done on 01/29--awaiting pathology -- Concern that this may now be a T-cell LGL. Hx/Workup: He was originally diagnosed with a T- cell lymphoma in May of 2014. He had CHOP chemo x 8 cycles. He declined referral to a transplant center. His leukopenia and thrombocytopenia persisted but repeat BMB did not prove recurrence. He also had various bouts of recurrent fever and fatigue and night sweats. He has had several weeks of feeling fatigued, had nausea, cough and body aches before presenting to the emergency room. (2) Neutropenic fever Status: Acute Plan: -- On Cefepime, Vanco and flagyl -- IDfollowing --on Neupogen --Monitor for fevers -- Will get blood cultures for temp greater than 100.5. --repeat blood cultures show no growth --one blood culture + coag neg staph species (01/28) Assessment 61 y/o male with a history of T cell lymphoma admitted for B symptoms and pancytopenia. Plan 1. Await BMB results. 2. abx per ID 3. no transfusion needed today. monitor CBC Attending Statement The exam, history, and the medical decision-making described in the above note were completed with the assistance of the mid-level provider. I reviewed and agree with the findings presented. I attest that I had a [id number] encounter with the patient on the same day, and personally performed and documented my assessment and findings in the medical record. No new c/o. BM path pending. Continue to monitor CBC and continue supportive care. Sabrina Basurto Feb 01, 2017 10:40 Chauncey Louis MD Feb 01, 2017 10:45
--- NOTE | 2017-02-01 11:40 | RADRPT ---
EXAM DATE/TIME: 02/01/2017 11:08 [facility] COMPARISON: No previous studies available for comparison. INDICATIONS : Abdomen pain. ORAL CONTRAST: No oral contrast ingested. RADIATION DOSE: 14.98 CTDIvol (mGy) MEDICAL HISTORY : Cholelithiasis. Hernia, hiatal. SURGICAL HISTORY : Inguinal hernia repair. ENCOUNTER: Initial ACUITY: 1 day PAIN SCALE: 3/10 LOCATION: Bilateral abdomen. TECHNIQUE: Volumetric scanning of the abdomen and pelvis was performed. Using automated exposure control and ad justment of the mA and/or kV according to patient size, radiation dose was kept as low as reasonably achievable to obtain optimal diagnostic quality images. FINDINGS: The lung bases are clear. The liver is free of focal defects. The spleen is prominent with varicosi ties suggesting hepatocellular disease and portal hypertension. There is mild gallbladder wall thickening. There is no ascites. There is adenopathy in the mesenter y. In the pelvis, there is minimal inguinal adenopathy present. Minimal obturator adenopathy is present . Review of bone windows reveals only degenerative changes. Extensive calcification is seen of the seminal vesicles and vas deferens. CONCLUSION: Splenomegaly and mesenteric adenopathy. I don't see a focal defect in the spleen. Considerations wo uld include portal hypertension as well as etiologies such as lymphoma. The patient has a history of T-cell lymphoma. I don't have any prior studies for a comparison. Walt Gaviria MD FACR on February 01, 2017 at 11:29 Board Certified Radiologist. This report was verified electronically.
[2017-02-01 12:00] VITALS: BP 131/68; PULSE 70; RESP 16; TEMP 97; O2SAT 100
[2017-02-01] MEDS: FILGRASTIM 300 MCG/ML VIAL SQ SCH (14:00)
[2017-02-01 16:00] VITALS: BP 122/72; PULSE 80; RESP 20; TEMP 97.2; O2SAT 100
[2017-02-01 20:00] VITALS: BP 103/58; PULSE 76; RESP 17; TEMP 98.1; O2SAT 99
[2017-02-01] MEDS: TEMAZEPAM 15 MG CAP PO PRN (21:28)
[2017-02-02] VITALS: BP 111/57; PULSE 88; RESP 17; TEMP 96.9; O2SAT 100
[2017-02-02] MEDS: VANCOMYCIN INJ 1,250 MG in SODIUM CHLOR 0.9% 250 ML INJ 250 ML IV SCH ×2 (01:07→15:54)
[2017-02-02] MEDS: CEFEPIME INJ 2,000 MG in SODIUM CHLORIDE 0.9% INJ 100 ML IV SCH ×3 (03:31→21:16)
[2017-02-02 04:00] VITALS: BP 103/62; PULSE 73; RESP 18; TEMP 98.2; O2SAT 98
[2017-02-02 07:50] VITALS: BP 108/62; PULSE 75; RESP 20; TEMP 97.4; O2SAT 99
[2017-02-02 07:52] LABS: AUTOMATED NEUTROPHIL # 1.4 TH/MM3 (1.8-7.7); BASOPHIL % 0.8 % (0.0-2.0); LYMPH % 14.4 % (9.0-44.0); LYMPHOCYTE # 0.3 TH/MM3 (1.0-4.8); MEAN CELL VOLUME 88.1 FL (80.0-100.0); MEAN CORPUSCULAR HEMOGLOBIN 30.8 PG (27.0-34.0); MEAN CORPUSCULAR HGB CONC 34.9 % (32.0-36.0); MONO % 8.9 % (0.0-8.0); NEUT % 73.9 % (16.0-70.0); PLATELET COUNT 31 TH/MM3 (150-450); RED BLOOD COUNT 2.95 MIL/MM3 (4.50-5.90); RED CELL DISTRIBUTION WIDTH 15.5 % (11.6-17.2); WHITE BLOOD COUNT 1.9 TH/MM3 (4.0-11.0)
[2017-02-02 07:58] LABS: HEMO FLAGS AUTO DIFF
[2017-02-02] MEDS: metroNIDAZOLE 500 MG INJ 100 ML IV SCH ×2 (08:13→19:37)
[2017-02-02 08:41] LABS: ALKALINE PHOSPHATASE 65 U/L (45-117); ALT (GPT) 25 U/L (12-78); ANION GAP 8 MEQ/L (5-15); AST (GOT) 57 U/L (15-37); BICARBONATE 24.8 MEQ/L (21.0-32.0); BLOOD UREA NITROGEN 7 MG/DL (7-18); CHLORIDE 109 MEQ/L (98-107); GLOMERULAR FILTRATION RATE 95 ML/MIN (>89); POTASSIUM 3.6 MEQ/L (3.5-5.1); SODIUM (NA) 142 MEQ/L (136-145); TOTAL BILIRUBIN ADULT 1.5 MG/DL (0.2-1.0)
[2017-02-02 09:11] LABS: BANDS 30 % (0-6); BASOPHILS 1 % (0-2); EOSINOPHILS 2 % (0-4); NEUTROPHIL # MANUAL DIFF 1.5 TH/MM3 (1.8-7.7); POLYS (SEG NEUTROPHILS) 49 % (16-70); WBC DIFF SAMPLE 100
[2017-02-02 09:12] LABS: CORRECTED NUCLEATED RBC 1 /100 WBC (0-0); DOHLE BODIES PRESENT (NONE SEEN)
[2017-02-02 09:13] LABS: PLATELET ESTIMATE SMEAR LOW (NORMAL); PLATELET MORPHOLOGY NORMAL (NORMAL); SCAN/DIFF FINAL DIFF MANUAL
--- NOTE | 2017-02-02 11:50 | PD.ONC.PN ---
Subjective Subjective Remarks Afebrile overnight. Pt sitting up in bed in no distress. He tells me that overall he feels pretty good but he is tired of being in the hospital. Objective Data Date Time Temp Pulse Resp B/P Pulse Ox O2 Delivery O2 Flow Rate FiO2 02/02/17 07:50 97.4 75 20 108/62 99 02/02/17 04:00 98.2 73 18 103/62 98 02/02/17 00:00 96.9 88 17 111/57 100 02/01/17 20:00 98.1 76 17 103/58 99 02/01/17 16:00 97.2 80 20 122/72 100 02/01/17 12:00 97.0 70 16 131/68 100 Result Diagram: 02/02/17 0710 02/02/17 0710 Laboratory Results Laboratory Tests Test 02/02/17 07:10 White Blood Count 1.9 TH/MM3 Red Blood Count 2.95 MIL/MM3 Hemoglobin 9.1 GM/DL Hematocrit 26.0 % Mean Corpuscular Volume 88.1 FL Mean Corpuscular Hemoglobin 30.8 PG Mean Corpuscular Hemoglobin 34.9 % Concent Red Cell Distribution Width 15.5 % Platelet Count 31 TH/MM3 Mean Platelet Volume 9.7 FL Neutrophils (%) (Auto) 73.9 % Lymphocytes (%) (Auto) 14.4 % Monocytes (%) (Auto) 8.9 % Eosinophils (%) (Auto) 2.0 % Basophils (%) (Auto) 0.8 % Neutrophils # (Auto) 1.4 TH/MM3 Lymphocytes # (Auto) 0.3 TH/MM3 Monocytes # (Auto) 0.2 TH/MM3 Eosinophils # (Auto) 0.0 TH/MM3 Basophils # (Auto) 0.0 TH/MM3 CBC Comment AUTO DIFF Differential Total Cells 100 Counted Neutrophils % (Manual) 49 % Band Neutrophils % 30 % Lymphocytes % 15 % Monocytes % 3 % Eosinophils % 2 % Basophils % 1 % Neutrophils # (Manual) 1.5 TH/MM3 Nucleated Red Blood Cells 1 /100 WBC Differential Comment FINAL DIFF MANUAL Dohle Bodies PRESENT Platelet Estimate LOW Platelet Morphology Comment NORMAL Sodium Level 142 MEQ/L Potassium Level 3.6 MEQ/L Chloride Level 109 MEQ/L Carbon Dioxide Level 24.8 MEQ/L Anion Gap 8 MEQ/L Blood Urea Nitrogen 7 MG/DL Creatinine 0.83 MG/DL Estimat Glomerular Filtration 95 ML/MIN Rate Random Glucose 104 MG/DL Calcium Level 7.8 MG/DL Total Bilirubin 1.5 MG/DL Aspartate Amino Transf 57 U/L (AST/SGOT) Alanine Aminotransferase 25 U/L (ALT/SGPT) Alkaline Phosphatase 65 U/L Total Protein 4.9 GM/DL Albumin 2.8 GM/DL Culture Results Microbiology Date/Time Procedure Status Source Growth 01/30/17 20:27 Aerobic Blood Culture - Preliminary Resulted Blood Peripheral NO GROWTH IN 3 DAYS 01/30/17 20:27 Anaerobic Blood Culture - Preliminary Resulted Blood Peripheral NO GROWTH IN 3 DAYS 01/30/17 20:31 Aerobic Blood Culture - Preliminary Resulted Blood Peripheral NO GROWTH IN 3 DAYS 01/30/17 20:31 Anaerobic Blood Culture - Preliminary Resulted Blood Peripheral NO GROWTH IN 3 DAYS Administered Medications Medications (Trade) Dose Ordered Sig/Mariaa Route PRN Reason Start Time Stop Time Status Last Admin Dose Admin Temazepam 15 mg 15 mg HS PRN PO INSOMNIA 01/28/17 21:00 02/01/17 21:28 Cefepime HCl 2000 mg/Sodium Chloride 100 ml @ 200 mls/hr Q8H IV 01/29/17 04:00 02/02/17 03:31 Vancomycin HCl/ Sodium Chloride (Vancomycin Inj/ NS 250 ml Inj) 262.5 ml @ 250 mls/hr Q12H IV 01/29/17 02:00 02/02/17 01:07 Acetaminophen 650 mg 650 mg Q6HR PRN PO TEMP>100.4F,PAIN1-10,IRRITABLE 01/29/17 05:00 01/30/17 17:12 Sodium Chloride (NS 1000 ml Inj) 1,000 ml @ 100 mls/hr Q10H IV 01/29/17 05:15 02/01/17 23:21 Filgrastim 300 mcg 300 mcg DAILY@14 SQ 01/30/17 20:15 02/02/17 20:14 02/01/17 14:00 Metronidazole (Flagyl 500 Mg Inj) 100 ml @ 100 mls/hr Q8H IV 02/01/17 00:45 02/02/17 08:13 Objective Remarks GENERAL: Middle aged male lying in bed watching TV in no distress. SKIN: Warm and dry. HEAD: Normocephalic. EYES: No injection or drainage. NECK: Supple, trachea midline. CARDIOVASCULAR: +S1/S2. No murmur appreciated. RESPIRATORY: Breath sounds equal bilaterally. No accessory muscle use. GASTROINTESTINAL: Abdomen soft, non-tender, nondistended. EXTREMITIES: No cyanosis, or edema. NEUROLOGICAL: No obvious focal deficit. Awake, alert, and oriented x3. Assessment/Plan Problem List: (1) Pancytopenia Status: Acute Plan: -- BMB done on 01/29--awaiting pathology -- Concern that this may now be a T-cell LGL. Hx/Workup: He was originally diagnosed with a T- cell lymphoma in May of 2014. He had CHOP chemo x 8 cycles. He declined referral to a transplant center. His leukopenia and thrombocytopenia persisted but repeat BMB did not prove recurrence. He also had various bouts of recurrent fever and fatigue and night sweats. He has had several weeks of feeling fatigued, had nausea, cough and body aches before presenting to the emergency room. (2) Neutropenic fever Status: Resolved Plan: -- On Cefepime, Vanco and flagyl -- IDfollowing --on Neupogen --Monitor for fevers -- Will get blood cultures for temp greater than 100.5. --repeat blood cultures show no growth --one blood culture + coag neg staph species (01/28) Assessment 61 y/o male with a history of T cell lymphoma admitted for B symptoms and pancytopenia. Plan 1. Can D/C neutropenic precautions 2. Getting Neupogen as support 3. Await BMB results 4. Monitor for fevers Attending Statement The exam, history, and the medical decision-making described in the above note were completed with the assistance of the mid-level provider. I reviewed and agree with the findings presented. I attest that I had a [id number] encounter with the patient on the same day, and personally performed and documented my assessment and findings in the medical record. Pt seen and examined. Neutropenia secondary to recurrent peripheral T cell lymphoma. Bone marrow biopsy flow suspicious for, final results still pending. Discussed concern for recurrence, await confirmatory results, pt decline refer for BMT as before. Continue support. Ultimately discussed that treatment will be as out patient. Cont GCSF for support. Lisbet Farley Feb 02, 2017 11:49 Josie Christina MD Feb 02, 2017 19:09
--- NOTE | 2017-02-02 12:33 | RADRPT ---
EXAM DATE/TIME: 02/02/2017 10:27 [facility] COMPARISON: No previous studies available for comparison. INDICATIONS : Abdominal pain. Hepatosplenomegaly. DOSE: 4.1 mCi Tc99m Mebrofenin IV MEDICAL HISTORY : T-cell lymphoma. SURGICAL HISTORY : Inguinal hernia repair. Cervical fusion, left knee surgery and port placement. ENCOUNTER: Initial ACUITY: 3 days PAIN SCALE: 3/10 LOCATION: Right upper quadrant TECHNIQUE: Following the intravenous administration of radiotracer, dynamic sequential images were performed wit h continuous acquisition. FINDINGS: HEPATIC KINETICS: There is prompt uptake of radiotracer in the liver. No focal defects are seen. There is normal rate of washout from the hepatic parenchyma. BILIARY CLEARANCE: Activity is first seen in the extrahepatic biliary system at 20 minutes. There is normal excretion i nto the small bowel. GALLBLADDER: Activity is first seen in the gallbladder at 45 minutes. Common bile duct kinetics are normal and th ere is no evidence of biliary obstruction. BILIARY ENTRIC REFLUX: Mild. CONCLUSION: Negative for cystic duct or common duct obstruction. Chronic cholecystitis may be consideration. Walt Gaviria MD FACR on February 02, 2017 at 12:30 Board Certified Radiologist. This report was verified electronically.
[2017-02-02 12:45] VITALS: BP 115/71; PULSE 74; RESP 20; TEMP 96.6; O2SAT 100
[2017-02-02] MEDS: ACETAMINOPHEN 325 MG TAB PO PRN (12:54)
[2017-02-02] MEDS: FILGRASTIM 300 MCG/ML VIAL SQ SCH (12:54)
--- NOTE | 2017-02-02 13:59 | HHI.GIFU ---
Subjective Remarks Resting in bed. Denies any nausea/vomiting. Denies abdominal pain. (Joseline Cox) Objective Vitals I&O Vital Signs Date Time Temp Pulse Resp B/P Pulse Ox O2 Delivery O2 Flow Rate FiO2 02/02/17 12:45 96.6 74 20 115/71 100 02/02/17 07:50 97.4 75 20 108/62 99 02/02/17 04:00 98.2 73 18 103/62 98 02/02/17 00:00 96.9 88 17 111/57 100 02/01/17 20:00 98.1 76 17 103/58 99 02/01/17 16:00 97.2 80 20 122/72 100 I/O 02/01/17 02/01/17 02/01/17 02/02/17 02/02/17 02/02/17 07:00 15:00 23:00 07:00 15:00 23:00 Intake Total 480 ml 120 ml 960 ml 480 ml Output Total 850 ml 1000 ml 1000 ml Balance 480 ml -730 ml -40 ml -520 ml Intake Oral 480 ml 120 ml 960 ml 480 ml Output Urine Total 850 ml 1000 ml 1000 ml # Voids 3 # Bowel Movements 3 0 Laboratory Laboratory Tests Test 02/02/17 07:10 White Blood Count 1.9 Red Blood Count 2.95 Hemoglobin 9.1 Hematocrit 26.0 Mean Corpuscular Volume 88.1 Mean Corpuscular Hemoglobin 30.8 Mean Corpuscular Hemoglobin 34.9 Concent Red Cell Distribution Width 15.5 Platelet Count 31 Mean Platelet Volume 9.7 Neutrophils (%) (Auto) 73.9 Lymphocytes (%) (Auto) 14.4 Monocytes (%) (Auto) 8.9 Eosinophils (%) (Auto) 2.0 Basophils (%) (Auto) 0.8 Neutrophils # (Auto) 1.4 Lymphocytes # (Auto) 0.3 Monocytes # (Auto) 0.2 Eosinophils # (Auto) 0.0 Basophils # (Auto) 0.0 CBC Comment AUTO DIFF Differential Total Cells 100 Counted Neutrophils % (Manual) 49 Band Neutrophils % 30 Lymphocytes % 15 Monocytes % 3 Eosinophils % 2 Basophils % 1 Neutrophils # (Manual) 1.5 Nucleated Red Blood Cells 1 Differential Comment FINAL DIFF MANUAL Dohle Bodies PRESENT Platelet Estimate LOW Platelet Morphology Comment NORMAL Sodium Level 142 Potassium Level 3.6 Chloride Level 109 Carbon Dioxide Level 24.8 Anion Gap 8 Blood Urea Nitrogen 7 Creatinine 0.83 Estimat Glomerular Filtration 95 Rate Random Glucose 104 Calcium Level 7.8 Total Bilirubin 1.5 Aspartate Amino Transf 57 (AST/SGOT) Alanine Aminotransferase 25 (ALT/SGPT) Alkaline Phosphatase 65 Total Protein 4.9 Albumin 2.8 Date/Time Procedure Status Source Growth 01/30/17 20:31 Aerobic Blood Culture - Preliminary Resulted Blood Peripheral NO GROWTH IN 3 DAYS 01/30/17 20:31 Anaerobic Blood Culture - Preliminary Resulted Blood Peripheral NO GROWTH IN 3 DAYS 01/28/17 22:20 Urine Culture - Final Complete Urine Clean Catch NO GROWTH IN 48 HOURS. 01/28/17 17:38 Aerobic Blood Culture - Final Complete Blood Peripheral NO GROWTH IN 5 DAYS 01/28/17 17:38 Anaerobic Blood Culture - Final Complete Blood Peripheral NO GROWTH IN 5 DAYS 01/28/17 17:35 Influenza Types A,B Antigen (GRICELDA) - Final Complete Nasal Washing NEGATIVE FOR FLU A AND B ANTIGEN.... Imaging Last Impressions Hepatobiliary Scan Nuclear Medicine 02/02/17 0000 Signed Impressions: Service Date/Time: Thursday, February 02, 2017 10:27 - CONCLUSION: Negative for cystic duct or common duct obstruction. Chronic cholecystitis may be consideration. Walt Gaviria MD FACR Abdomen/Pelvis CT 02/01/17 0000 Signed Impressions: Service Date/Time: Wednesday, February 01, 2017 11:08 - CONCLUSION: Splenomegaly and mesenteric adenopathy. I don't see a focal defect in the spleen. Considerations would include portal hypertension as well as etiologies such as lymphoma. The patient has a history of T-cell lymphoma. I don't have any prior studies for a comparison. Walt Gaviria MD FACR Abdomen Ultrasound 01/30/17 0000 Signed Impressions: Service Date/Time: Monday, January 30, 2017 15:30 - CONCLUSION: 1. Hepatosplenomegaly. 2. Thick-walled stone containing gallbladder with pericholecystic fluid raising the possibility of acute cholecystitis. Clinical correlation is recommended. Nixon Valencia MD Chest X-Ray 01/28/17 2762 Signed Impressions: Service Date/Time: Saturday, January 28, 2017 18:36 - CONCLUSION: No acute disease. Nixon Valencia MD Physical Exam HEENT: Normocephalic; atraumatic; no jaundice. CHEST: CTA CARDIAC: RRR ABDOMEN: Soft, nondistended, nontender; no hepatosplenomegaly; bowel sounds are present in all four quadrants. EXTREMITIES: No clubbing, cyanosis, or edema. SKIN: Normal; no rash; no jaundice. SASH FINISHER: No focal deficits; alert and oriented times three. (Joseline Cox) Assessment and Plan Plan ASSESSMENT: - Abnormal imaging suggesting possible cholecystitis. Abdomen Ultrasound 1. Hepatosplenomegaly. 2.Thick-walled stone containing gallbladder with pericholecystic fluid raising the possibility of acute cholecystitis. Abdomen /Pelvis CT (02/01/17)----> Splenomegaly and mesenteric adenopathy. I don't see a focal defect in the spleen. Considerations would include portal hypertension as well as etiologies such as lymphoma. The patient has a history of T-cell lymphoma. I don't have any prior studies for a comparison. HIDA (02/02/17)---> Negative for cystic duct or common duct obstruction. Chronic cholecystitis may be consideration. He is not having any nausea, vomiting, abdominal pain. T. Bili 1.5, AST 57, ALT 25, Alk Phosph 65. - Hepatosplenomegaly, see imaging above. Patient asymptomatic. Thrombocytopenia , 28 - Neutropenic Fever. Blood culture 01/28 positive cocci in pairs and chains. Repeat blood cultures were collected on 01/30, no growth so far. Urine culture no growth. Peripheral blood smear, pancytopenia. ID following. Broad spectrum antibiotics. Bone marrow biopsy (01/30) pending. ANC improved 01/31 1740 - Pancytopenia, likely secondary to myelosuppression from abnormal T-Cell proliferation/cancer recurrence per primary. H/H 9.1/26.0. PLAN: - RAYNE - Await results from bone marrow biopsy - Monitor labs - Monitor LFTs - Consider GS evaluation if patient has n/v/abdominal. He is asymptomatic at this time. - Further recommendations to follow based on results of above. - Patient see and examined by Dr. Luna and myself and this note is written on his behalf. (Joseline Cox) Physician Comments Seen and examined with HARSHA, doing well. HIDA =ve for obstruction. (Kelley Luna MD) Joseline Cox [facility] Feb 02, 2017 13:59 Kelley Luna MD Feb 02, 2017 17:43
[2017-02-02 15:30] VITALS: BP 129/75; PULSE 77; RESP 20; TEMP 97.1; O2SAT 99
--- NOTE | 2017-02-02 17:27 | HHI.FPPN ---
Subjective Remarks No acute events overnight, AFVSS. Feeling a bit less down since a couple friends came in, still frustrated with waiting but overall positive outlook. No CP/SOB. (Dale Persaud MD R1) Objective Vitals Vital Signs Date Time Temp Pulse Resp B/P Pulse Ox O2 Delivery O2 Flow Rate FiO2 02/02/17 15:30 97.1 77 20 129/75 99 02/02/17 12:45 96.6 74 20 115/71 100 02/02/17 07:50 97.4 75 20 108/62 99 02/02/17 04:00 98.2 73 18 103/62 98 02/02/17 00:00 96.9 88 17 111/57 100 02/01/17 20:00 98.1 76 17 103/58 99 I/O 02/01/17 02/01/17 02/01/17 02/02/17 02/02/17 02/02/17 07:00 15:00 23:00 07:00 15:00 23:00 Intake Total 480 ml 120 ml 960 ml 480 ml 522 ml Output Total 850 ml 1000 ml 1000 ml Balance 480 ml -730 ml -40 ml -520 ml 522 ml Intake Oral 480 ml 120 ml 960 ml 480 ml IV Total 522 ml Output Urine Total 850 ml 1000 ml 1000 ml # Voids 3 # Bowel Movements 3 0 (Dale Persaud MD R1) Result Diagram: 02/02/17 0710 02/02/17 0710 Imaging Last Impressions Hepatobiliary Scan Nuclear Medicine 02/02/17 0000 Signed Impressions: Service Date/Time: Thursday, February 02, 2017 10:27 - CONCLUSION: Negative for cystic duct or common duct obstruction. Chronic cholecystitis may be consideration. Walt Gaviria MD FACR Abdomen/Pelvis CT 02/01/17 0000 Signed Impressions: Service Date/Time: Wednesday, February 01, 2017 11:08 - CONCLUSION: Splenomegaly and mesenteric adenopathy. I don't see a focal defect in the spleen. Considerations would include portal hypertension as well as etiologies such as lymphoma. The patient has a history of T-cell lymphoma. I don't have any prior studies for a comparison. Walt Gaviria MD FACR Abdomen Ultrasound 01/30/17 0000 Signed Impressions: Service Date/Time: Monday, January 30, 2017 15:30 - CONCLUSION: 1. Hepatosplenomegaly. 2. Thick-walled stone containing gallbladder with pericholecystic fluid raising the possibility of acute cholecystitis. Clinical correlation is recommended. Nixon Valencia MD Chest X-Ray 01/28/17 3196 Signed Impressions: Service Date/Time: Saturday, January 28, 2017 18:36 - CONCLUSION: No acute disease. Nixon Valencia MD Objective Remarks GENERAL: Healthy-appearing male, sitting up in bed in no obvious distress. SKIN: No rashes, ecchymoses or lesions. Left lower extremity with mild chronic stable venous vascular changes including hyperpigmentation. CARDIOVASCULAR: NRRR without murmurs, gallops, or rubs. RESPIRATORY: Clear to auscultation. No crackles or wheezes. GASTROINTESTINAL: Abdomen soft, non-tender, nondistended. Significant splenomegaly. MUSCULOSKELETAL: Extremities without clubbing, cyanosis, or edema. NEUROLOGICAL: Awake and alert. 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 He presented to [facility] after recently having fevers (102.0 F), malaise, and an ANC < 1,000. He will be admitted for neutropenic fever of 102 F. Broad spectrum antibiotic have been started and medical oncology has been consulted. Discharge Planning Unclear, pending further workup of neutropenic fever (Dale Persaud MD R1) Attending Attestation Patient seen, examined and discussed with resident team. I agree with assessment and management as documented and discussed with me. No new concerns. HIDA scan negative for acute cholecystitis today. Await bone marrow pathology. (Leonie Almazan MD) Problem List: (1) Neutropenic fever Status: Acute Plan: Plan: New finding of positive cocci in pairs and chains on initial blood culture 01/28 , with some low temperatures over last 24 hours, repeat blood cultures collected 01/30, continue to follow ID was consulted 01/30appreciate recommendations, added Flagyl and obtained GI consult Continue broad-spectrum antibiotics as below ANC improved to 1740 on 01/31, differential is pending on 02/19 Flow cytometry of bone marrow aspirate highly suggestive of recurrent T-cell lymphoma - Manage per Heme/onc; patient known to Dr. Christina, appreciate their recommendations Daily CBC Tylenol 650 mg as needed for fevers greater than 100.4F Hospital course: Patient meets criteria for neutropenic fever on presentation with ANC of 1118 and febrile ANC less than 1000 on admission, downtrended initially but improving Neutropenic precautions placed for entry to room Broad-spectrum antibiotics as below: - Cefepime 2g IV every 8 hours (01/28 ) - Vancomycin 1250 mg IV twice a day (01/28 ) - Flagyl 500 mg IV every 8 hours (01/31 ) Blood cultures 01/28 on admission, gram-positive cocci Repeat blood cultures 01/30 NGTD Urine culture 01/28 showing no growth (final) Peripheral blood smear ordered, showing predominantly normochromic and normocytic red cells, thrombocytopenia, no evidence of blasts or abnormal cells (2) Hepatosplenomegaly Status: Acute Plan: Plan: GI consulted per ID, appreciate recommendations Hospital course: Bili elevated + splenomegaly noted. Patient is asymptomatic. US abdomen ordered 01/30: Hepatosplenomegaly, mildly thickened gallbladder wall multiple mobile gallstones identified. Kidneys were unremarkable. HIDA scan negative for acute cholangitis or cholecystitis; consider chronic cholecystitis Obtain further imaging/work-up of abdomen if indicated by new symptoms or to further work-up of neutropenia (3) Anemia Status: Acute Plan: Likely secondary to myelosuppression from abnormal T-Cell proliferation / cancer recurrence Continue to monitor - s/p biopsy Transfuse if < 8.0 (4) Alcohol abuse Status: Chronic Plan: Drinks 2-3 beers every day with more on weekends, no withdrawal symptoms while inpatient so far Denies any history of withdrawal symptoms CIWA if indicated (5) DVT prophylaxis Status: Acute Plan: Hold Lovenox given thrombocytopenia of <50k Transfuse if < 10,000 (6) Nutrition, metabolism, and development symptoms Status: Acute Plan: Fluids: NS @ 100/hr Nutrition: Reg diet Electrolytes: Monitor and replete as needed DVT: SCDs given thrombocytopenic dw Dr. Almazan (Dale Persaud MD R1) Dale Persaud MD R1 Feb 02, 2017 17:27 Leonie Almazan MD Feb 02, 2017 20:05
[2017-02-02 20:00] VITALS: BP 122/69; PULSE 80; RESP 17; TEMP 96; O2SAT 99
[2017-02-02] MEDS: TEMAZEPAM 15 MG CAP PO PRN (21:17)
--- NOTE | 2017-02-02 22:15 | HHI.IDPN ---
Subjective Subjective Remarks Delayed entry pt was today around 1830 feels better denies abdominal dragan, fever, nausea or vomiting HIDA scan cw chronic cholecystitis BM cw lymphoma recurrence Antibiotics cefepime vanco flagyl Allergies: Coded Allergies: Oxycodone (Verified Allergy, Severe, HIVES, 01/28/17) Penicillin (Verified Allergy, Intermediate, rash, 01/28/17) *MDRO Multi-Drug Resistant Organism (Verified Allergy, Unknown, 01/28/17) MRSA Objective . Vital Signs Date Time Temp Pulse Resp B/P Pulse Ox O2 Delivery O2 Flow Rate FiO2 02/02/17 20:00 96.0 80 17 122/69 99 02/02/17 15:30 97.1 77 20 129/75 99 02/02/17 12:45 96.6 74 20 115/71 100 02/02/17 07:50 97.4 75 20 108/62 99 02/02/17 04:00 98.2 73 18 103/62 98 02/02/17 00:00 96.9 88 17 111/57 100 02/01/17 02/01/17 02/02/17 15:00 23:00 07:00 Intake Total 120 ml 960 ml 480 ml Output Total 850 ml 1000 ml 1000 ml Balance -730 ml -40 ml -520 ml Intake Oral 120 ml 960 ml 480 ml Output Urine Total 850 ml 1000 ml 1000 ml # Voids 3 # Bowel Movements 3 0 . Laboratory Tests Test 02/01/17 02/02/17 08:00 07:10 White Blood Count 1.9 TH/MM3 1.9 TH/MM3 Red Blood Count 3.34 MIL/MM3 2.95 MIL/MM3 Hemoglobin 10.1 GM/DL 9.1 GM/DL Hematocrit 29.6 % 26.0 % Mean Corpuscular Volume 88.8 FL 88.1 FL Mean Corpuscular Hemoglobin 30.3 PG 30.8 PG Mean Corpuscular Hemoglobin 34.1 % 34.9 % Concent Red Cell Distribution Width 15.5 % 15.5 % Platelet Count 28 TH/MM3 31 TH/MM3 Mean Platelet Volume 9.3 FL 9.7 FL Neutrophils (%) (Auto) 78.7 % 73.9 % Lymphocytes (%) (Auto) 11.9 % 14.4 % Monocytes (%) (Auto) 7.8 % 8.9 % Eosinophils (%) (Auto) 1.1 % 2.0 % Basophils (%) (Auto) 0.5 % 0.8 % Neutrophils # (Auto) 1.5 TH/MM3 1.4 TH/MM3 Lymphocytes # (Auto) 0.2 TH/MM3 0.3 TH/MM3 Monocytes # (Auto) 0.1 TH/MM3 0.2 TH/MM3 Eosinophils # (Auto) 0.0 TH/MM3 0.0 TH/MM3 Basophils # (Auto) 0.0 TH/MM3 0.0 TH/MM3 CBC Comment AUTO DIFF AUTO DIFF Differential Total Cells 100 100 Counted Neutrophils % (Manual) 40 % 49 % Band Neutrophils % 42 % 30 % Lymphocytes % 11 % 15 % Monocytes % 6 % 3 % Eosinophils % 1 % 2 % Neutrophils # (Manual) 1.6 TH/MM3 1.5 TH/MM3 Nucleated Red Blood Cells 1 /100 WBC 1 /100 WBC Differential Comment FINAL DIFF FINAL DIFF MANUAL MANUAL Dohle Bodies PRESENT PRESENT Platelet Estimate LOW LOW Platelet Morphology Comment NORMAL NORMAL Basophils % 1 % Laboratory Tests Test 02/01/17 02/02/17 08:00 07:10 Sodium Level 139 MEQ/L 142 MEQ/L Potassium Level 3.6 MEQ/L 3.6 MEQ/L Chloride Level 106 MEQ/L 109 MEQ/L Carbon Dioxide Level 25.7 MEQ/L 24.8 MEQ/L Anion Gap 7 MEQ/L 8 MEQ/L Blood Urea Nitrogen 9 MG/DL 7 MG/DL Creatinine 0.91 MG/DL 0.83 MG/DL Estimat Glomerular Filtration 85 ML/MIN 95 ML/MIN Rate Random Glucose 98 MG/DL 104 MG/DL Calcium Level 8.1 MG/DL 7.8 MG/DL Total Bilirubin 2.1 MG/DL 1.5 MG/DL Aspartate Amino Transf 68 U/L 57 U/L (AST/SGOT) Alanine Aminotransferase 25 U/L 25 U/L (ALT/SGPT) Alkaline Phosphatase 69 U/L 65 U/L Total Protein 5.5 GM/DL 4.9 GM/DL Albumin 3.1 GM/DL 2.8 GM/DL Imaging Last Impressions Hepatobiliary Scan Nuclear Medicine 02/02/17 0000 Signed Impressions: Service Date/Time: Thursday, February 02, 2017 10:27 - CONCLUSION: Negative for cystic duct or common duct obstruction. Chronic cholecystitis may be consideration. Walt Gaviria MD FACR Abdomen/Pelvis CT 02/01/17 0000 Signed Impressions: Service Date/Time: Wednesday, February 01, 2017 11:08 - CONCLUSION: Splenomegaly and mesenteric adenopathy. I don't see a focal defect in the spleen. Considerations would include portal hypertension as well as etiologies such as lymphoma. The patient has a history of T-cell lymphoma. I don't have any prior studies for a comparison. Walt Gaviria MD FACR Abdomen Ultrasound 01/30/17 0000 Signed Impressions: Service Date/Time: Monday, January 30, 2017 15:30 - CONCLUSION: 1. Hepatosplenomegaly. 2. Thick-walled stone containing gallbladder with pericholecystic fluid raising the possibility of acute cholecystitis. Clinical correlation is recommended. Nixon Valencia MD Chest X-Ray 01/28/17 1827 Signed Impressions: Service Date/Time: Saturday, January 28, 2017 18:36 - CONCLUSION: No acute disease. Nixon Valencia MD Physical Exam CONSTITUTIONAL/GENERAL: This is an adequately nourished patient, in no apparent distress. TUBES/LINES/DRAINS: SKIN: No jaundice, rashes, or lesions.Skin temperature appropriate. Not diaphoretic. HEAD: Atraumatic. Normocephalic. EYES: No scleral icterus. ENT: Very poor dentition CARDIOVASCULAR: Regular rate and rhythm without murmurs, gallops, or rubs. RESPIRATORY/CHEST: Symmetric, unlabored respirations. Clear to auscultation. Breath sounds equal bilaterally. No wheezes, rales, or rhonchi. GASTROINTESTINAL: Abdomen soft, non-tender, nondistended. No hepato-splenomegaly , or palpable masses. No guarding. Bowel sounds present. Mendoza negative MUSCULOSKELETAL: Extremities without clubbing, cyanosis, or edema. NEUROLOGICAL: Awake and alert. non focal PSYCHIATRIC: calm, cooperative Assessment & Plan Remarks Fever - resolved Absolute neutropenia resolved Afebrile with ANC> 500 x 2 days + Pancytopenic, suspected T cell lymphoma recurrence; BM bx + for lymphoma Rejected diagnosis of Acute calculous cholecystitis -incidentally seen on US but clinically inapparent : US showed Thick-walled stone containing gallbladder with pericholecystic fluid raising the possibility of acute cholecystitis. HIDA scan not cw acute cholecystitis, but + for chronic cholecystitis PCN allergy, unknown reaction type Low grade coag neg staph bacteremia - doubt clin significance - dc cefepime - dc flagyl - dc vanco for now - fu blood clx untill final monitor off abcx Patito Mallory MD Feb 02, 2017 22:15
[2017-02-03] VITALS: BP 120/66; PULSE 79; RESP 16; TEMP 97.1; O2SAT 99
[2017-02-03 04:00] VITALS: BP 123/71; PULSE 78; RESP 16; TEMP 96.2; O2SAT 98
[2017-02-03 08:00] VITALS: BP 137/77; PULSE 78; RESP 18; TEMP 97; O2SAT 98
--- NOTE | 2017-02-03 08:49 | HHI.GIFU ---
Subjective Remarks Resting in bed. States he was told by Dr. Christina last night that his lymphoma has returned. He has not had fevers overnight. No n/v or abdominal pain. Tolerating diet. Objective Vitals I&O Vital Signs Date Time Temp Pulse Resp B/P Pulse Ox O2 Delivery O2 Flow Rate FiO2 02/03/17 04:00 96.2 78 16 123/71 98 02/03/17 00:00 97.1 79 16 120/66 99 02/02/17 20:00 96.0 80 17 122/69 99 02/02/17 15:30 97.1 77 20 129/75 99 02/02/17 12:45 96.6 74 20 115/71 100 I/O 02/02/17 02/02/17 02/02/17 02/03/17 02/03/17 02/03/17 07:00 15:00 23:00 07:00 15:00 23:00 Intake Total 480 ml 1144 ml 480 ml 240 ml Output Total 1000 ml 400 ml 900 ml 200 ml Balance -520 ml 1144 ml 80 ml -660 ml -200 ml Intake Oral 480 ml 622 ml 480 ml 240 ml IV Total 522 ml Output Urine Total 1000 ml 400 ml 900 ml 200 ml # Voids 4 # Bowel Movements 0 0 Laboratory Date/Time Procedure Status Source Growth 01/30/17 20:31 Aerobic Blood Culture - Preliminary Resulted Blood Peripheral NO GROWTH IN 3 DAYS 01/30/17 20:31 Anaerobic Blood Culture - Preliminary Resulted Blood Peripheral NO GROWTH IN 3 DAYS Imaging Last Impressions Hepatobiliary Scan Nuclear Medicine 02/02/17 0000 Signed Impressions: Service Date/Time: Thursday, February 02, 2017 10:27 - CONCLUSION: Negative for cystic duct or common duct obstruction. Chronic cholecystitis may be consideration. Walt Gaviria MD FACR Abdomen/Pelvis CT 02/01/17 0000 Signed Impressions: Service Date/Time: Wednesday, February 01, 2017 11:08 - CONCLUSION: Splenomegaly and mesenteric adenopathy. I don't see a focal defect in the spleen. Considerations would include portal hypertension as well as etiologies such as lymphoma. The patient has a history of T-cell lymphoma. I don't have any prior studies for a comparison. Walt Gaviria MD FACR Abdomen Ultrasound 01/30/17 0000 Signed Impressions: Service Date/Time: Monday, January 30, 2017 15:30 - CONCLUSION: 1. Hepatosplenomegaly. 2. Thick-walled stone containing gallbladder with pericholecystic fluid raising the possibility of acute cholecystitis. Clinical correlation is recommended. Nixon Valencia MD Chest X-Ray 01/28/171826 Signed Impressions: Service Date/Time: Saturday, January 28, 2017 18:36 - CONCLUSION: No acute disease. Nixon Valencia MD Physical Exam HEENT: Normocephalic; atraumatic; no jaundice. CHEST: CTA CARDIAC: RRR ABDOMEN: Soft, nondistended, nontender; no hepatosplenomegaly; bowel sounds are present in all four quadrants. EXTREMITIES: No clubbing, cyanosis, or edema. SKIN: Normal; no rash; no jaundice. IN HOUSE CRA: No focal deficits; alert and oriented times three. Assessment and Plan Plan ASSESSMENT: - Abnormal imaging suggesting possible cholecystitis. Abdomen Ultrasound 1. Hepatosplenomegaly. 2.Thick-walled stone containing gallbladder with pericholecystic fluid raising the possibility of acute cholecystitis. Abdomen /Pelvis CT (02/01/17)----> Splenomegaly and mesenteric adenopathy. I don't see a focal defect in the spleen. Considerations would include portal hypertension as well as etiologies such as lymphoma. The patient has a history of T-cell lymphoma. I don't have any prior studies for a comparison. HIDA (02/02/17)---> Negative for cystic duct or common duct obstruction. Chronic cholecystitis may be consideration. He is not having any nausea, vomiting, abdominal pain. T. Bili 1.5, AST 57, ALT 25, Alk Phosph 65. - Hepatosplenomegaly, see imaging above. Patient asymptomatic. Thrombocytopenia , 31 - Neutropenic Fever. Blood culture 01/28 positive cocci in pairs and chains. Repeat blood cultures were collected on 01/30, no growth so far. Urine culture no growth. Peripheral blood smear, pancytopenia. ID following. Broad spectrum antibiotics. Bone marrow biopsy (01/30) pending- although patient reports that Dr. Christina was called with the results and he was told last night that his lymphoma had reoccurred. - Pancytopenia, likely secondary to myelosuppression from abnormal T-Cell proliferation/cancer recurrence per primary. H/H 9.1/26.0. PLAN: - RAYNE - Monitor labs - Monitor LFTs - Consider GS evaluation if patient has n/v/abdominal. He is asymptomatic at this time. - GI will sign off, please reconsult as needed - Patient see and examined by Dr. Escobar and myself and this note is written on his behalf. Joseline Cox Feb 03, 2017 08:49
--- NOTE | 2017-02-03 09:26 | HHI.FPPN ---
Subjective Remarks No acute events overnight. AFVSS. No CP/SOB. Feeling well. Has been told he probably has recurrent lymphoma, which he had been expecting. Positive outlook, no depression. (Dale Persaud MD R1) Objective Vitals Vital Signs Date Time Temp Pulse Resp B/P Pulse Ox O2 Delivery O2 Flow Rate FiO2 02/03/17 04:00 96.2 78 16 123/71 98 02/03/17 00:00 97.1 79 16 120/66 99 02/02/17 20:00 96.0 80 17 122/69 99 02/02/17 15:30 97.1 77 20 129/75 99 02/02/17 12:45 96.6 74 20 115/71 100 I/O 02/02/17 02/02/17 02/02/17 02/03/17 02/03/17 02/03/17 07:00 15:00 23:00 07:00 15:00 23:00 Intake Total 480 ml 1144 ml 480 ml 240 ml Output Total 1000 ml 400 ml 900 ml 200 ml Balance -520 ml 1144 ml 80 ml -660 ml -200 ml Intake Oral 480 ml 622 ml 480 ml 240 ml IV Total 522 ml Output Urine Total 1000 ml 400 ml 900 ml 200 ml # Voids 4 # Bowel Movements 0 0 (Dale Persaud MD R1) Result Diagram: 02/02/17 0710 02/02/17 0710 Other Results Flow cytometry from bone marrow aspirate suspicious for T-cell lymphoma Imaging Last Impressions Hepatobiliary Scan Nuclear Medicine 02/02/17 0000 Signed Impressions: Service Date/Time: Thursday, February 02, 2017 10:27 - CONCLUSION: Negative for cystic duct or common duct obstruction. Chronic cholecystitis may be consideration. Walt Gaviria MD FACR Abdomen/Pelvis CT 02/01/17 0000 Signed Impressions: Service Date/Time: Wednesday, February 01, 2017 11:08 - CONCLUSION: Splenomegaly and mesenteric adenopathy. I don't see a focal defect in the spleen. Considerations would include portal hypertension as well as etiologies such as lymphoma. The patient has a history of T-cell lymphoma. I don't have any prior studies for a comparison. Walt Gaviria MD FACR Abdomen Ultrasound 01/30/17 0000 Signed Impressions: Service Date/Time: Monday, January 30, 2017 15:30 - CONCLUSION: 1. Hepatosplenomegaly. 2. Thick-walled stone containing gallbladder with pericholecystic fluid raising the possibility of acute cholecystitis. Clinical correlation is recommended. Nixon Valencia MD Chest X-Ray 01/28/17 1827 Signed Impressions: Service Date/Time: Saturday, January 28, 2017 18:36 - CONCLUSION: No acute disease. Nixon Valencia MD Objective Remarks GENERAL: Healthy-appearing male, lying in bed in no distress. SKIN: No rashes, ecchymoses or lesions. Left lower extremity with mild chronic stable venous vascular changes including hyperpigmentation. CARDIOVASCULAR: NRRR without murmurs, gallops, or rubs. RESPIRATORY: Clear to auscultation. No crackles or wheezes. GASTROINTESTINAL: Abdomen soft, non-tender, nondistended. Significant splenomegaly. MUSCULOSKELETAL: Extremities without clubbing, cyanosis, or edema. NEUROLOGICAL: Awake and alert. 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 He presented to [place] ED after recently having fevers (102.0 F), malaise, and an ANC < 1,000. He will be admitted for neutropenic fever of 102 F. Broad spectrum antibiotic have been started and medical oncology has been consulted. Discharge Planning Home today with follow-up by Oncology (Dale Persaud MD R1) Attending Attestation Patient seen and examined, discussed with resident team. I agree with assessment and management as documented and discussed with me. Pt aware of results of flow cytometry. He remains optimistic about treatment. Discharge home today, with weekly labs until able to be seen by Dr Christina (Leonie Almazan MD) Problem List: (1) Neutropenic fever Status: Resolved Plan: Plan: Finding of positive cocci in pairs and chains on initial blood culture 01/28 --> coagulase negative staph, repeat blood cultures collected 01/30 and NGTD ID was consulted 01/30appreciate recommendations - Discontinued antibiotics - Follow-up cultures to make sure they are negative Continue broad-spectrum antibiotics as below Still neutropenic Flow cytometry of bone marrow aspirate highly suggestive of recurrent T-cell lymphoma - Manage per Heme/onc; patient known to Dr. Christina, appreciate their recommendations - Per Onc, can be discharged with follow up Hospital course: Patient met criteria for neutropenic fever on presentation with ANC of 1118 and febrile Broad-spectrum antibiotics as below: - Cefepime 2g IV every 8 hours (01/28 02/02) - Vancomycin 1250 mg IV twice a day (01/28 02/02) - Flagyl 500 mg IV every 8 hours (01/31 02/02) Initial blood Cx grew coagulase negative staph (see above) Repeat blood cultures 01/30 NGTD Urine culture 01/28 showing no growth (final) Peripheral blood smear ordered, showing predominantly normochromic and normocytic red cells, thrombocytopenia, no evidence of blasts or abnormal cells (2) Hepatosplenomegaly Status: Chronic Plan: Plan: 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 Patient is asymptomatic. US abdomen ordered 01/30: Hepatosplenomegaly, mildly thickened gallbladder wall multiple mobile gallstones identified. Kidneys were unremarkable. HIDA scan negative for acute cholangitis or cholecystitis; consider chronic cholecystitis Obtain further imaging/work-up of abdomen if indicated by new symptoms or to further work-up of neutropenia (3) Anemia Status: Chronic Plan: Likely secondary to myelosuppression from abnormal T-Cell proliferation / cancer recurrence Continue to monitor - s/p biopsy Transfuse if < 8.0 (4) Alcohol abuse Status: Chronic Plan: Drinks 2-3 beers every day with more on weekends, no withdrawal symptoms while inpatient so far Denies any history of withdrawal symptoms Counselled patient on recommended alcohol intake level Advised to never drink and drive (5) DVT prophylaxis Status: Acute Plan: Hold Lovenox given thrombocytopenia of <50k Transfuse if < 10,000 (6) Nutrition, metabolism, and development symptoms Status: Acute Plan: Fluids: PO only Nutrition: Reg diet Electrolytes: Monitor and replete as needed DVT: SCDs given thrombocytopenic sdw Dr. Jatin Almazan (Dale Persaud MD R1) Dale Persaud MD R1 Feb 03, 2017 09:26 Leonie Almazan MD Feb 03, 2017 19:35
--- NOTE | 2017-02-03 09:28 | HHI.DCPOC ---
Discharge Care Plan Diagnosis: (1) T-cell lymphoma (2) Neutropenic fever (3) Hepatosplenomegaly (4) Anemia (5) Alcohol abuse Goals to Promote Your Health * To prevent worsening of your condition and complications * To maintain your health at the optimal level Directions to Meet Your Goals Take your medications as prescribed Follow your dietary instruction Follow activity as directed Keep your appointments as scheduled Take your immunizations and boosters as scheduled If your symptoms worsen call your PCP, if no PCP go to Urgent Care Center or Emergency Room Smoking is Dangerous to Your Health. Avoid second hand smoke Call the 24-hour hour crisis hotline for domestic abuse at Dale Persaud MD R1 Feb 03, 2017 09:28
[2017-02-03] MEDS: ACETAMINOPHEN 325 MG TAB PO PRN (10:57)
--- NOTE | 2017-02-03 11:47 | PD.ONC.PN ---
Subjective Subjective Remarks Afebrile overnight. Patient resting comfortably. He is eager to go home. No complaints. Objective Data Date Time Temp Pulse Resp B/P Pulse Ox O2 Delivery O2 Flow Rate FiO2 02/03/17 08:00 97.0 78 18 137/77 98 02/03/17 04:00 96.2 78 16 123/71 98 02/03/17 00:00 97.1 79 16 120/66 99 02/02/17 20:00 96.0 80 17 122/69 99 02/02/17 15:30 97.1 77 20 129/75 99 02/02/17 12:45 96.6 74 20 115/71 100 02/03/17 02/03/17 02/03/17 07:00 15:00 23:00 Intake Total 240 ml Output Total 900 ml 200 ml Balance -660 ml -200 ml Result Diagram: 02/02/17 0710 02/02/17 0710 Administered Medications Medications (Trade) Dose Ordered Sig/Mariaa Route PRN Reason Start Time Stop Time Status Last Admin Dose Admin Temazepam (Restoril) 15 mg HS PRN PO INSOMNIA 01/28/17 21:00 02/02/17 21:17 Acetaminophen (Tylenol) 650 mg Q6HR PRN PO TEMP>100.4F,PAIN1-10,IRRITABLE 01/29/17 05:00 02/03/17 10:57 Objective Remarks GENERAL: Middle aged male, upright in bed in nad. SKIN: Warm and dry. HEAD: Normocephalic. EYES: No injection or drainage. NECK: Supple, trachea midline. CARDIOVASCULAR: +S1/S2. RESPIRATORY: Breath sounds equal bilaterally. No accessory muscle use. GASTROINTESTINAL: Abdomen soft, non-tender, nondistended. EXTREMITIES: No cyanosis, or edema. NEUROLOGICAL: awake and alert, normal speech. moving all extremities. Assessment/Plan Problem List: (1) Pancytopenia Status: Acute Plan: -- BMB done on 01/29--awaiting pathology -- Concern that this may now be a T-cell LGL. Hx/Workup: He was originally diagnosed with a T- cell lymphoma in May of 2014. He had [facility] chemo x 8 cycles. He declined referral to a transplant center. His leukopenia and thrombocytopenia persisted but repeat BMB did not prove recurrence. He also had various bouts of recurrent fever and fatigue and night sweats. He has had several weeks of feeling fatigued, had nausea, cough and body aches before presenting to the emergency room. Assessment 61 y/o male with a history of T cell lymphoma admitted for B symptoms and pancytopenia. Plan 1. clear for discharge 2. follow up in clinic in one week for results of bone marrow biopsy, and likely to start treatment as well. Patient given number to clinic and told to make an appointment in one week. Attending Statement As discussed above w/ AMADO Kingsley. Pt to follow up as out pt. Sabrina Basurto Feb 03, 2017 11:47 Josie Christina MD Feb 03, 2017 18:13
[2017-02-03 12:00] VITALS: BP 128/75; PULSE 82; RESP 18; TEMP 97.3; O2SAT 98
--- NOTE | 2017-02-03 17:28 | HHI.DS ---
Discharge Summary Admission Date Jan 28, 2017 at 8:20 pm Discharge Date: Feb 03, 2017 Admitting Diagnosis neutropenic fever (1) Neutropenic fever Plan: Plan: Finding of positive cocci in pairs and chains on initial blood culture 01/28 --> coagulase negative staph, repeat blood cultures collected 01/30 and NGTD ID was consulted 01/30appreciate recommendations - Discontinued antibiotics - Follow-up cultures to make sure they are negative Continue broad-spectrum antibiotics as below Still neutropenic Flow cytometry of bone marrow aspirate highly suggestive of recurrent T-cell lymphoma - Manage per Heme/onc; patient known to Dr. Christina, appreciate their recommendations - Per Onc, can be discharged with follow up Hospital course: Patient met criteria for neutropenic fever on presentation with ANC of 1118 and febrile Broad-spectrum antibiotics as below: - Cefepime 2g IV every 8 hours (01/28 02/02) - Vancomycin 1250 mg IV twice a day (01/28 02/02) - Flagyl 500 mg IV every 8 hours (01/31 02/02) Initial blood Cx grew coagulase negative staph (see above) Repeat blood cultures 01/30 NGTD Urine culture 01/28 showing no growth (final) Peripheral blood smear ordered, showing predominantly normochromic and normocytic red cells, thrombocytopenia, no evidence of blasts or abnormal cells (2) Hepatosplenomegaly Plan: Plan: 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 Patient is asymptomatic. US abdomen ordered 01/30: Hepatosplenomegaly, mildly thickened gallbladder wall multiple mobile gallstones identified. Kidneys were unremarkable. HIDA scan negative for acute cholangitis or cholecystitis; consider chronic cholecystitis Obtain further imaging/work-up of abdomen if indicated by new symptoms or to further work-up of neutropenia (3) Anemia Plan: Likely secondary to myelosuppression from abnormal T-Cell proliferation / cancer recurrence Continue to monitor - s/p biopsy Transfuse if < 8.0 (4) Alcohol abuse Plan: Drinks 2-3 beers every day with more on weekends, no withdrawal symptoms while inpatient so far Denies any history of withdrawal symptoms Counselled patient on recommended alcohol intake level Advised to never drink and drive (5) DVT prophylaxis Plan: Hold Lovenox given thrombocytopenia of <50k Transfuse if < 10,000 (6) Nutrition, metabolism, and development symptoms Plan: Fluids: PO only Nutrition: Reg diet Electrolytes: Monitor and replete as needed DVT: SCDs given thrombocytopenic sdw Dr. Jatin Al[facility]zan [facility] - Dr. Lui ID - Dr. Mallory Heme/Onc - Dr. Christina Procedures Bone marrow biopsy 01/29 Brief History Today 01/28/2017: Two weeks ago, Mr. Sargent reports that the "bottom fell out of my blood counts" -- at that point he went to [facility]. He was not happy with the care at this facility so he left and came to [place] ED on January 10. At this point his ANC was improving. He was sent home with neutropenic precautions, a follow up with his PCP (Dr. Paige) in 2 days for report lab work, and 5 days of Levaquin therapy. At his visit, his ANC was improving, however he was still thrombocytopenic and anemic. Since this apt he started feeling better, however since Friday 01/26 he has started to feel worn out. It feels similar to the previous episodes he was having prior to his cancer diagnosis. He feels very tired, fatigued, and all of his joints hurt. He is "dazed and confused", and "detached". Feeling depressed as well. Last night he woke up in a puddle of sweat. This has been occurring for the last month to six weeks. He started with a new dry cough today at about 1:30 pm, and at that time felt nauseated. When he got home he threw up. The vomit was liquid, white in color. Denies blood. First time he threw up in a while. Denies diarrhea or abdominal pain currently. Was told he was in [facility] in January of 2015 - has not been getting regular follow ups after he lost insurance and experienced a divorce. ROS: ++ Stiff neck (for several weeks), headache, and joint pains (for several weeks). Glands in neck feel swollen. Pain in left side of upper abd. Same feeling as before from enlarged spleen. CBC/BMP: 02/02/17 0710 02/02/17 0710 Significant Findings Laboratory Tests Test 02/01/17 02/02/17 08:00 07:10 White Blood Count 1.9 TH/MM3 1.9 TH/MM3 (4.0-11.0) (4.0-11.0) Red Blood Count 3.34 MIL/MM3 2.95 MIL/MM3 (4.50-5.90) (4.50-5.90) Hemoglobin 10.1 GM/DL 9.1 GM/DL (13.0-17.0) (13.0-17.0) Hematocrit 29.6 % 26.0 % (39.0-51.0) (39.0-51.0) Platelet Count 28 TH/MM3 31 TH/MM3 (150-450) (150-450) Neutrophils (%) (Auto) 78.7 % 73.9 % (16.0-70.0) (16.0-70.0) Neutrophils # (Auto) 1.5 TH/MM3 1.4 TH/MM3 (1.8-7.7) (1.8-7.7) Lymphocytes # (Auto) 0.2 TH/MM3 0.3 TH/MM3 (1.0-4.8) (1.0-4.8) Band Neutrophils % 42 % (0-6) 30 % (0-6) Neutrophils # (Manual) 1.6 TH/MM3 1.5 TH/MM3 (1.8-7.7) (1.8-7.7) Nucleated Red Blood Cells 1 /100 WBC 1 /100 WBC (0-0) (0-0) Dohle Bodies PRESENT (NONE PRESENT (NONE SEEN) SEEN) Platelet Estimate LOW (NORMAL) LOW (NORMAL) Estimat Glomerular Filtration 85 ML/MIN (>89) Rate Calcium Level 8.1 MG/DL 7.8 MG/DL (8.5-10.1) (8.5-10.1) Total Bilirubin 2.1 MG/DL 1.5 MG/DL (0.2-1.0) (0.2-1.0) Aspartate Amino Transf 68 U/L (15-37) 57 U/L (15-37) (AST/SGOT) Total Protein 5.5 GM/DL 4.9 GM/DL (6.4-8.2) (6.4-8.2) Albumin 3.1 GM/DL 2.8 GM/DL (3.4-5.0) (3.4-5.0) Monocytes (%) (Auto) 8.9 % (0.0-8.0) Chloride Level 109 MEQ/L (98-107) PE at Discharge GENERAL: Healthy-appearing male, lying in bed in no distress. SKIN: No rashes, ecchymoses or lesions. Left lower extremity with mild chronic stable venous vascular changes including hyperpigmentation. CARDIOVASCULAR: NRRR without murmurs, gallops, or rubs. RESPIRATORY: Clear to auscultation. No crackles or wheezes. GASTROINTESTINAL: Abdomen soft, non-tender, nondistended. Significant splenomegaly. MUSCULOSKELETAL: Extremities without clubbing, cyanosis, or edema. NEUROLOGICAL: Awake and alert. Hospital Course Admitted for febrile neutropenia and progressive fatigue mimicking symptoms he had prior to his original T-cell lymphoma diagnosis. Started on broad-spectrum antibiotics per ID recommendations: Vancomycin / Cefepime x5 days, Flagyl x 2 days. Abx discontinued at day 5 due to negative cultures per ID recs. Fever resolved, neutropenia improved. Due to some mild abdominal pain GI consulted and performed HIDA scan showing no evidence of acute process but possible chronic cholecystitis. Recommended follow up with GI if symptoms recur. Bone marrow biopsy performed 01/29, showing likely recurrent T-cell lymphoma on Flow cytometry analysis. Heme/Onc cleared for discharge with follow-up arranged as an outpatient to further discuss treatment of recurrent cancer. Pt Condition on Discharge: Stable Discharge Disposition: Discharge Home Discharge Instructions DIET: Follow Instructions for: As Tolerated, No Restrictions Activities you can perform: Regular-No Restrictions Follow up Referrals: Appointment for Follow Up - 2 Weeks Oncology - 1 Week with Chauncey Louis MD Continued Medications: Cobalamine Combinations (Vitamin W21-Wbaib Acid) 500-400 Mcg Tab 1 TAB PO DAILY Nutritional Supplement Ref 0 TAB Multiple Vitamin (Multiple Vitamin) 1 Tab 1 TAB PO DAILY Nutritional Supplement Ref 0 TAB Dale Persaud MD R1 Feb 03, 2017 5:28 pm
== END 2017-02-03 14:50 | disposition home or self-care (01) | DRG 809 ==
LOC: NEPA 17:46 → NEDA 20:20 → NEDH 01-29 00:22 → HOCB 01-29 01:37
PROVIDERS: ADMIT Family Medicine; ATTEND Family Medicine
PROC: 07DR3ZX Extraction of Iliac Bone Marrow, Percutaneous Approach, Diagnostic (ICD-10-PCS; principal; 2017-01-29)
DX: D70.9 Neutropenia, unspecified (principal); C84.40 Peripheral T-cell lymphoma, not elsewhere classified, unspecified site; E87.1 Hypo-osmolality and hyponatremia; K80.10 Calculus of gallbladder with chronic cholecystitis without obstruction; K70.9 Alcoholic liver disease, unspecified; B95.7 Other staphylococcus as the cause of diseases classified elsewhere; I25.10 Atherosclerotic heart disease of native coronary artery without angina pectoris; J44.9 Chronic obstructive pulmonary disease, unspecified; M43.6 Torticollis; R50.81 Fever presenting with conditions classified elsewhere; F10.10 Alcohol abuse, uncomplicated; Y90.0 Blood alcohol level of less than 20 mg/100 ml; Z80.7 Family history of other malignant neoplasms of lymphoid, hematopoietic and related tissues; Z85.828 Personal history of other malignant neoplasm of skin; Z92.21 Personal history of antineoplastic chemotherapy
CPT/HCPCS: 71010; 74176; 76700; 78226; 80053; 81001; 81342; 83605; 85007; 85027; 85060; 85097; 85610; 85730; 86403; 87040; 87086; 87205; 87804; 88184; 88185; 88237; 88264; 88280; 88305; 88311; 88313; 88341; 88342; 96361; 96374; A9537; J0692; J1442; J2060; J2270; J3370; J7030; J7050

== ENCOUNTER → 2017-05-19 | Outpatient (CLI) | payer BC ==
[~2017-05-19] MED LIST changes: +HYDR-3133 PO; -LEVA500T PO; -MULT-65 PO; +MULTTAB67 PO; +NORC5TAB PO; +VITATAB43 PO
--- NOTE | 2017-05-20 10:13 | EKG ---
Date Performed: 05/19/2017 Time Performed: 12:51:35 PTAGE: 61 years EKG: SINUS TACHYCARDIA MARKED LEFT AXIS DEVIATION LOW QRS VOLTAGE IN PRECORDIAL LEADS INCOMPLETE RIGHT BUNDLE BRANCH BLOCK ABNORMAL ECG PREVIOUS TRACING : 11/14/2014 09.59 DOCTOR: Toro Berg Interpretating Date/Time 05/20/2017 10:12:59
== END ==
LOC: CPRE 12:29
PROVIDERS: ATTEND Surgery
DX: Z01.812 Encounter for preprocedural laboratory examination (principal); Z01.810 Encounter for preprocedural cardiovascular examination; I45.10 Unspecified right bundle-branch block
CPT/HCPCS: 36415; 86850; 86900; 86901; 86920; 86922; 93005

== ENCOUNTER → 2017-05-21 | Day surgery (SDC) | payer BC ==
[~2017-05-21] VITALS: Ht 185.4 cm; Wt 81.4 kg
[~2017-05-21] MED LIST changes: +*MEPERIDINE 25 MG INJ VIAL PERIprocedural Use ONLY ONE; +*RESP: ALBUTEROL 2.5 MG/3 ML NEB (PRN) PERIprocedural Use ONLY NEB ONE; +BUPIVACAINE/EPINEPHRINE 0.5% 50 ML VIAL ONE; +CHLORHEXIDINE GLUCONATE 2 % 1 PACK (2 CLOTHS) TOPICAL PRN; +DO NOT ADM ANY ANTICOAGULANT DRUGS PRN; +HEPARIN SODIUM - IV 10,000 UNITS/10 ML VIAL ONE; +INSULIN HUMAN REGULAR 1,000 UNITS/10 ML VIAL SQ PRN; +LACTATED RINGER'S 1000 ML IV PRN; +METOPROLOL TARTRATE 25 MG TAB PO PRN; +POVIDONE IODINE 5% (ANTISEPSIS KIT) 4 APPLICATIONS EACH NARE PRN; +PROPOFOL 200 MG/20 ML AMP IV ONE; +SODIUM CHLOR 0.9% 250 ML INJ 250 ML ONE; +SODIUM CHLORID 0.9% 500 ML IV PRN; +SODIUM CHLORIDE 0.9% 20 ML VIAL ONE; +VANCOMYCIN HCL 1000 MG ON-CALL/NS 250 ML IV SCH; +VANCOMYCIN HCL 1000 MG VIAL ONE; +diphenhydrAMINE HCL 50 MG/ML VIAL ONE; +hydrOXYzine HCL 25 MG TAB PO PRN
[2017-05-21 11:53] VITALS: BP 84/54; PULSE 111; RESP 18; TEMP 98.8; O2SAT 96
--- NOTE | 2017-05-21 14:32 | HHI.PR ---
cc: Aman Stallworth MD Immediate Post Op Note Procedure Date: May 21, 2017 Pre Op Diagnosis: (1) Pancytopenia (2) T-cell lymphoma (3) Neutropenia Post Op Diagnosis: (1) Anemia (2) Neutropenia (3) T-cell lymphoma Surgeon: Aman Stallworth Cloth Reeler(s): Please refer to or record Procedure: Placement of left-sided [id number] under fluoroscopic guidance Anesthesia: MAC Drains: None IVF Patient to: PACU Patient Condition: Good Implant/Devices: SEE IMPLANT LOG (if applicable) Date/Time of Procedure: SEE SURGICAL CARE RECORD Aman Stallworth MD May 21, 2017 14:32
--- NOTE | 2017-05-21 14:47 | RADRPT ---
EXAM DATE/TIME: 05/21/2017 14:21 [facility] COMPARISON: No previous studies available for comparison. INDICATIONS : Infuse a port placement. FLUORO TIME: 0.3 minutes IMAGE COUNT: 1 MEDICAL HISTORY : None. SURGICAL HISTORY : None. ENCOUNTER: Initial ACUITY: 1 day PAIN SCORE: Non-responsive. LOCATION: Chest FINDINGS/ CONCLUSION: Single view of the chest demonstrates a left-sided Infusaport catheter has been placed. Tip overlies the SVC. Toro Zambrano MD on May 21, 2017 at 14:40 Board Certified Radiologist. This report was verified electronically.
--- NOTE | 2017-05-21 15:41 | RADRPT ---
EXAM DATE/TIME: 05/21/2017 14:48 [facility] COMPARISON: CHEST SINGLE AP, January 28, 2017, 18:36. INDICATIONS : Post infusaport placement. MEDICAL HISTORY : Hiatal hernia. Stage 3 T Cell lymphoma. SURGICAL HISTORY : Port placement and removal. ENCOUNTER: Initial ACUITY: 1 day PAIN SCORE: 0/10 LOCATION: Bilateral chest FINDINGS: A single view of the chest demonstrates the lungs to be symmetrically aerated without evidence of mas s, infiltrate or effusion. The cardiomediastinal contours are unremarkable. Osseous structures are intact. CONCLUSION: Normal examination. Left subclavian Yuxcjq-h-Srci catheter in excellent position. No pneumothorax. Toro Zambrano MD on May 21, 2017 at 15:40 Board Certified Radiologist. This report was verified electronically.
[2017-05-21 17:00] VITALS: BP 100/52; PULSE 113; RESP 20; TEMP 98.1; O2SAT 100
--- NOTE | 2017-05-22 20:14 | MP ---
cc: AMAN STALLWORTH,MORENITA Lew M.D. DATE OF SURGERY 05/21/17 PREOPERATIVE DIAGNOSIS T-cell lymphoma, pancytopenia, thrombocytopenia, in need of chemotherapy under the direction of Dr. Christina. POSTOPERATIVE DIAGNOSIS T-cell lymphoma, pancytopenia, thrombocytopenia, in need of chemotherapy under the direction of Dr. Christina. PROCEDURE Placement of left-sided [id number]-Hmsg under fluoroscopic guidance. ANESTHESIA MAC. SURGEON Dr. Stallworth INDICATIONS This is a pleasant 61-year-old gentleman who unfortunately has a recurrence of his T-cell lymphoma. Plans were made for above. PROCEDURE The patient taken to the operating room, placed in the supine position. After anesthesia he had been given 2 units of platelets because of his thrombocytopenia. We anesthetized the area and midclavicular side after prepping with Betadine. He is given preoperative antibiotics and a time-out was done. We were able to cannulate the subclavian vein without difficulty, under fluoroscopic guidance thread the guidewire into the superior vena cava. Subcutaneous pocket is made at an old port site. The catheter is cut to size at 20 cm so it lays in the superior vena cava. The introducer and dilator then threaded over the guidewire. The guidewire and the dilator removed. The catheter was threaded through the introducer and under fluoroscopic guidance and it lays in the superior vena cava. The introducer is then removed. The catheter is secured with a deep layer with a 3-0 Vicryl. The deep layer is closed with 3-0 Vicryl and skin is closed with 4-0 Vicryl. Steri-Strips applied. Sterile bandage applied. Stat portable chest x-ray is pending at time of this dictation. Aman Stallworth MD JDORIAN/ESSENCE /2:40 PM /8:01 PM
== END | disposition home or self-care (01) ==
LOC: HSDC 10:40
PROVIDERS: ATTEND Surgery
DX: C85.90 Non-Hodgkin lymphoma, unspecified, unspecified site (principal); D61.818 Other pancytopenia; D69.6 Thrombocytopenia, unspecified; D70.9 Neutropenia, unspecified; D64.9 Anemia, unspecified
CPT/HCPCS: 00532; 36430; 36561; 71010; 94664; C1788; J1200; J1644; J2175; J3010; J3370; J7050; J7120; J7613; P9035

== ENCOUNTER 2017-06-02 09:25 | Inpatient (IN) | payer BC ==
[~2017-06-02] VITALS: Ht 185.4 cm; Wt 75.0 kg
[2017-06-02] VITALS (10 sets, daily range): BP systolic 101–143; BP diastolic 53–72; PULSE 110–128; RESP 20–29; TEMP 98.2–102.2; O2SAT 94–99
[~2017-06-02 09:25] MED LIST changes: -*MEPERIDINE 25 MG INJ VIAL PERIprocedural Use ONLY ONE; -*RESP: ALBUTEROL 2.5 MG/3 ML NEB (PRN) PERIprocedural Use ONLY NEB ONE; -BUPIVACAINE/EPINEPHRINE 0.5% 50 ML VIAL ONE; -CHLORHEXIDINE GLUCONATE 2 % 1 PACK (2 CLOTHS) TOPICAL PRN; -DO NOT ADM ANY ANTICOAGULANT DRUGS PRN; -HEPARIN SODIUM - IV 10,000 UNITS/10 ML VIAL ONE; -INSULIN HUMAN REGULAR 1,000 UNITS/10 ML VIAL SQ PRN; -LACTATED RINGER'S 1000 ML IV PRN; -METOPROLOL TARTRATE 25 MG TAB PO PRN; -POVIDONE IODINE 5% (ANTISEPSIS KIT) 4 APPLICATIONS EACH NARE PRN; -PROPOFOL 200 MG/20 ML AMP IV ONE; -SODIUM CHLOR 0.9% 250 ML INJ 250 ML ONE; -SODIUM CHLORID 0.9% 500 ML IV PRN; -SODIUM CHLORIDE 0.9% 20 ML VIAL ONE; -VANCOMYCIN HCL 1000 MG ON-CALL/NS 250 ML IV SCH; -VANCOMYCIN HCL 1000 MG VIAL ONE; -diphenhydrAMINE HCL 50 MG/ML VIAL ONE; -hydrOXYzine HCL 25 MG TAB PO PRN
[2017-06-02] MEDS ORDERED: SODIUM CHLORIDE 0.9% FLUSH 10 ML FLUSH IVF PRN (09:45)
[2017-06-02] MEDS ORDERED: SODIUM CHLORID 0.9% 500 ML INJ 500 ML IV ONE (09:45)
--- NOTE | 2017-06-02 10:02 | PD ---
HPI Chief Complaint: General Weakness Time Seen by Provider: 09:30 Travel History International Travel<30 days: No Contact w/Intl Traveler<30days: No Traveled to known affect area: No History of Present Illness HPI Patient is a 61-year-old male with a history of leukemia which was in remission for several years and recently had a relapse. Patient just started chemotherapy again with Dr. Josie Kaplan. He presents the emergency department today with shortness of breath and generalized weakness. He states he was getting up this morning to go in for a blood transfusion when he felt too weak to make it to Dr. Kaplan office and called 911 instead. He also endorses a dry cough for the past 2 days which has been gradually worsening. Denies any fevers. He also endorses some dark stool. Review of his recent blood work was significant for neutropenia with absolute white blood cell count of 0.8. He denies any abdominal pain chest pain earache or rash. 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) Cardiovascular Problems: No High Cholesterol: No Chemotherapy: Yes (05/25/17) Chest Pain: No Congestive Heart Failure: No COPD: No Cerebrovascular Accident: No Diabetes: No Diminished Hearing: No Endocrine: No GERD: No Glaucoma: No Genitourinary: No Headaches: Yes Hepatitis: No Hiatal Hernia: Yes Hypertension: No Implanted Vascular Access Dvce: Yes (port left chest) Kidney Stones: No Musculoskeletal: Yes (OA, JOINT PAIN) Neurologic: Yes (NEUROPATHY BLE, TINNITUS) Psychiatric: No Reproductive: No Respiratory: Yes (SHORTNESS OF BREATH UPON EXERTION) Myocardial Infarction: No Radiation Therapy: No Renal Failure: No Seizures: No Sickle Cell Disease: No Sleep Apnea: No Thyroid Disease: No Ulcer: No Influenza Vaccination: No Past Surgical History Abdominal Surgery: Yes (umbillical hernia repair) AICD: No Body Medical Devices: Plates and screws cervical spine. Cardiac Surgery: No Ear Surgery: No Endocrine Surgery: No Eye Surgery: No Joint Replacement: No Neurologic Surgery: Yes (CERVICAL FUSION X 3 (2001,2002,2003)) Oral Surgery: Yes (dentures) Pacemaker: No Thoracic Surgery: Yes (Port Placement & removal) Other Surgery: Yes (PORT PLACED AND REMOVED DUE TO MRSA INFECTION) Social History Alcohol Use: Yes (ocassionally (HASN'T DRAN IN 5 WEEKS)) Tobacco Use: No Substance Use: No Allergies-Medications (Allergen,Severity, Reaction): Coded Allergies: Oxycodone (Verified Allergy, Severe, HIVES, 05/21/17) Penicillin (Verified Allergy, Intermediate, rash, 05/21/17) *MDRO Multi-Drug Resistant Organism (Verified Adverse Reaction, Unknown, ) MRSA Blood 07/17/14 Reported Meds & Prescriptions Reported Meds & Active Scripts Active Reported Hydroxyzine HCl 25 Mg Tab 25 Mg PO TID PRN Vitamin F65-Jorbu Acid (Cobalamine Combinations) 500-400 Mcg Tab 1 Tab PO DAILY Multiple Vitamin 1 Tab 1 Tab PO DAILY Review of Systems Except as stated in HPI: all other systems reviewed are Neg Physical Exam Narrative GENERAL: Well-developed, thin, pale, dry cough. SKIN: Focused skin assessment warm/dry. HEAD: Atraumatic. Normocephalic. EYES: Pupils equal and round. No scleral icterus. No injection or drainage. ENT: No nasal bleeding or discharge. Mucous membranes pink and moist and pale. NECK: Trachea midline. No JVD. CARDIOVASCULAR: Regular rate and rhythm. No murmur appreciated. RESPIRATORY: No accessory muscle use. Clear to auscultation. Breath sounds equal bilaterally. GASTROINTESTINAL: Abdomen soft, non-tender, nondistended. Hepatic and splenic margins not palpable. MUSCULOSKELETAL: No obvious deformities. No clubbing. No cyanosis. No edema. NEUROLOGICAL: Awake and alert. No obvious cranial nerve deficits. Motor grossly within normal limits. Normal speech. PSYCHIATRIC: Appropriate mood and affect; insight and judgment normal. Data Data Last Documented VS Vital Signs Date Time Temp Pulse Resp B/P Pulse Ox O2 Delivery O2 Flow Rate FiO2 06/02/17 09:35 98.3 110 24 115/66 97 Orders Complete Blood Count With Diff (06/02/17 09:40) Comprehensive Metabolic Panel (06/02/17 09:40) Prothrombin Time / Inr (Pt) (06/02/17 09:40) Act Partial Throm Time (Ptt) (06/02/17 09:40) Type And Screen (06/02/17 09:40) Ecg Monitoring (06/02/17 09:40) Iv Access Insert/Monitor (06/02/17 09:40) Oximetry (06/02/17 09:40) Sodium Chloride 0.9% Flush (Ns Flush) (06/02/17 09:45) Electrocardiogram (06/02/17 09:40) Ckmb (Isoenzyme) Profile (06/02/17 09:40) Troponin I (06/02/17 09:40) Chest, Single Ap (06/02/17 09:40) Sodium Chlorid 0.9% 500 Ml Inj (Ns 500 M (06/02/17 09:45) Equip, Isolation Cart (06/02/17 10:04) Red Blood Cells (Rbc) (06/02/17 09:55) Sodium Chlor 0.9% 1000 Ml Inj (Ns 1000 M (06/02/17 11:15) Diet Regular Basic (06/02/17 Lunch) Vital Signs (Adult) ROD.Q4H (06/02/17 11:58) Consult Medical Oncology (06/02/17 ) Sodium Chlor 0.9% 1000 Ml Inj (Ns 1000 M (06/02/17 12:00) Complete Blood Count With Diff (06/03/17 06:00) Basic Metabolic Panel (Bmp) (06/03/17 06:00) Ondansetron Inj (Zofran Inj) (06/02/17 12:00) Acetaminophen (Tylenol) (06/02/17 12:00) AGID (06/02/17 09:55) Admit Order (Ed Use Only) (06/02/17 ) Labs Laboratory Tests Test 06/02/17 09:55 White Blood Count 3.7 TH/MM3 Red Blood Count 3.23 MIL/MM3 Hemoglobin 9.1 GM/DL Hematocrit 27.8 % Mean Corpuscular Volume 86.0 FL Mean Corpuscular Hemoglobin 28.2 PG Mean Corpuscular Hemoglobin 32.7 % Concent Red Cell Distribution Width 16.5 % Platelet Count 61 TH/MM3 Mean Platelet Volume 9.3 FL Neutrophils (%) (Auto) % Lymphocytes (%) (Auto) % Monocytes (%) (Auto) % Eosinophils (%) (Auto) % Basophils (%) (Auto) % Neutrophils # (Auto) TH/MM3 Lymphocytes # (Auto) TH/MM3 Monocytes # (Auto) TH/MM3 Eosinophils # (Auto) TH/MM3 Basophils # (Auto) TH/MM3 CBC Comment AUTO DIFF Differential Total Cells 100 Counted Neutrophils % (Manual) 65 % Band Neutrophils % 16 % Lymphocytes % 13 % Monocytes % 3 % Eosinophils % 2 % Neutrophils # (Manual) 3.0 TH/MM3 Myelocytes 1 % Differential Comment FINAL DIFF MANUAL Toxic Granulation 1+ Platelet Estimate LOW Platelet Morphology Comment NORMAL Tear Drop Cells 1+ Ovalocytes 2+ Prothrombin Time 22.3 SEC Prothromb Time International 2.0 RATIO Ratio Activated Partial 34.2 SEC Thromboplast Time Sodium Level 133 MEQ/L Potassium Level 5.1 MEQ/L Chloride Level 95 MEQ/L Carbon Dioxide Level 22.9 MEQ/L Anion Gap 15 MEQ/L Blood Urea Nitrogen 31 MG/DL Creatinine 3.00 MG/DL Estimat Glomerular Filtration 22 ML/MIN Rate Random Glucose 119 MG/DL Calcium Level 13.7 MG/DL Protein Corrected Calcium MG/DL Total Bilirubin 2.5 MG/DL Aspartate Amino Transf 70 U/L (AST/SGOT) Alanine Aminotransferase 49 U/L (ALT/SGPT) Alkaline Phosphatase 144 U/L Total Creatine Kinase 49 U/L Troponin I LESS THAN 0.02 NG/ML Total Protein 4.8 GM/DL Albumin 2.2 GM/DL Blood Type B POSITIVE Antibody Screen POSITIVE Antibody Identification Anti-Jka Antigen Identification Jka Antigen - NEGATIVE Crossmatch Leukocyte-Reduced Red Blood Cells Blood Bank Comment MDM Medical Decision Making Medical Screen Exam Complete: Yes Emergency Medical Condition: Yes Interpretation(s) EKG shows sinus tachycardia left axis deviation normal R-wave progression. Nonspecific RSR prime pattern in V1 and V2. No concerning ST segment changes. Intervals within normal limits. This an abnormal EKG. Differential Diagnosis Anemia, pancytopenia, thrombocytopenia, neutropenic fever, pneumonia, electrolyte abnormality, GI bleeding. Narrative Course Patient roomed in the emergency department, does appear pale mildly tachycardic and orthostatic. He was given a liter half normal saline, labs were significant for a calcium of 13.1. Review of his recent labs show that he was severely leukopenic with a total white blood cell count of 0.8, anemic and thrombocytopenic. Today his labs are actually better but his creatinine is elevated and this may be all hemoconcentration. This was all discussed with Dr. Martinez and Dr. Klein later of whom will admit the patient. I discussed my concerns that after fluid in his counts may dilute and may need transfusion. A type and screen has been ordered, at least one unit is holding in the blood bank for him. This was discussed with the patient for admission and he is agreeable. Last 24 hours Impressions Chest X-Ray 06/02/17 0940 Signed Impressions: Service Date/Time: Friday, June 02, 2017 09:59 - CONCLUSION: Underinflation with atelectasis at the lung bases. Otherwise, no acute finding is identified. Will Becker MD No fevers were observed in the emergency department. Rectal exam was considered for possibility of GI bleeding but at this time we' ll defer given his relative immune compromise Diagnosis Primary Impression: Acute kidney injury Additional Impressions: Dehydration Pancytopenia Admitting Information Admitting Physician Requests: Admit Condition: Stable Nixon Kirkland MD Jun 02, 2017 10:02
[2017-06-02 10:26] LABS: APTT (PATIENT) 34.2 SEC (24.3-30.1); PROTHROMBIN TIME - PATIENT 22.3 SEC (9.8-11.6)
[2017-06-02 10:33] LABS: HEMATOCRIT 27.8 % (39.0-51.0); MEAN CORPUSCULAR HEMOGLOBIN 28.2 PG (27.0-34.0); MEAN CORPUSCULAR HGB CONC 32.7 % (32.0-36.0); PLATELET COUNT 61 TH/MM3 (150-450); RED BLOOD COUNT 3.23 MIL/MM3 (4.50-5.90); RED CELL DISTRIBUTION WIDTH 16.5 % (11.6-17.2); WHITE BLOOD COUNT 3.7 TH/MM3 (4.0-11.0)
[2017-06-02 10:35] LABS: HEMO FLAGS AUTO DIFF
--- NOTE | 2017-06-02 10:35 | RADRPT ---
EXAM DATE/TIME: 06/02/2017 09:59 [facility] COMPARISON: CHEST SINGLE AP, May 21, 2017, 14:48. INDICATIONS : Weakness, short of breath, and fever. MEDICAL HISTORY : T-cell lymphoma. SURGICAL HISTORY : Inguinal hernia repair. Cervical fusion, left knee surgery and port placement. ENCOUNTER: Initial ACUITY: 1 day PAIN SCORE: 0/10 LOCATION: Bilateral chest FINDINGS: Underinflated AP view of the chest demonstrates a normal-sized cardiac silhouette. Left chest wall In fuse-a-Port remains present. Lungs are underinflated with atelectasis at the lung bases. No effusion, consolidation, or pneumothorax is identified. Bones and soft tissues demonstrate no acute abnormalit y. Cervical spine hardware is present. Clips overlie the left chest wall/axilla. CONCLUSION: Underinflation with atelectasis at the lung bases. Otherwise, no acute finding is identified. Will Becker MD on June 02, 2017 at 10:32 Board Certified Radiologist. This report was verified electronically.
[2017-06-02 10:56] LABS: ALKALINE PHOSPHATASE 144 U/L (45-117); ALT (GPT) 49 U/L (12-78); ANION GAP 15 MEQ/L (5-15); AST (GOT) 70 U/L (15-37); BICARBONATE 22.9 MEQ/L (21.0-32.0); BLOOD UREA NITROGEN 31 MG/DL (7-18); CHLORIDE 95 MEQ/L (98-107); GLOMERULAR FILTRATION RATE 22 ML/MIN (>89); POTASSIUM 5.1 MEQ/L (3.5-5.1); SODIUM (NA) 133 MEQ/L (136-145); TOTAL BILIRUBIN ADULT 2.5 MG/DL (0.2-1.0)
[2017-06-02 10:58] LABS: CREATINE KINASE 49 U/L (39-308)
[2017-06-02 11:15] LABS: BANDS 16 % (0-6); EOSINOPHILS 2 % (0-4); MYELOCYTES 1 % (0-0); OVALOCYTES 2+ (NORMAL); POLYS (SEG NEUTROPHILS) 65 % (16-70); WBC DIFF SAMPLE 100
[2017-06-02] MEDS ORDERED: SODIUM CHLOR 0.9% 1000 ML INJ 1,000 ML IV ONE ×2 (11:15→17:15)
[2017-06-02 11:16] LABS: PLATELET ESTIMATE SMEAR LOW (NORMAL); PLATELET MORPHOLOGY NORMAL (NORMAL); SCAN/DIFF FINAL DIFF MANUAL; TEARDROP RBCS 1+ (NORMAL); TOXIC GRANULATION 1+ (NORMAL)
[2017-06-02] MEDS ORDERED: ONDANSETRON HCL 4 MG/2 ML VIAL IV PUSH PRN (12:00)
--- NOTE | 2017-06-02 13:01 | HHI.HP ---
[facility] Service [place] [facility] Primary Care Physician Tye Negron M.D. Admission Diagnosis Hypercalcemia, Weakness, Anemia Diagnoses: (1) Generalized weakness Diagnosis: Principal (2) Hypercalcemia Diagnosis: Principal (3) T-cell lymphoma Diagnosis: Secondary Chief Complaint: generalized weakness Travel History International Travel<30 Days: No Contact w/Intl Traveler <30 Da: No Traveled to Known Affected Are: No History of Present Illness patient is a 61 y/o male with history of T-cell Lymphoma who presented to ER with generalized weakness. he says that his last chemo was last thursday. he says that he hasn't eaten as much over the past few days . he says that he started to feel weak over the past few days and it's been getting worse. he says that he even couldn't het out of the bed today. he's being follow-up by . he denies any chest pain, sob, fever, chills, cough, abdominal pain, nausea, vomiting or diarrhea. Review of Systems Constitutional: COMPLAINS OF: Fatigue, DENIES: Fever, Weight loss, Chills, Night Sweats Eyes: DENIES: Blurred vision, Diplopia, Vision loss, Double Vision Ears, nose, mouth, throat: DENIES: Tinnitus, Vertigo, Throat pain, Epistaxis Respiratory: DENIES: Apneas, Cough, Snoring, Wheezing, Hemoptysis, Sputum production, Shortness of breath Cardiovascular: DENIES: Chest pain, Palpitations, Syncope, Dyspnea on Exertion , PND, Lower Extremity Edema, Orthopnea, Claudication Gastrointestinal: DENIES: Abdominal pain, Black stools, Bloody stools, Constipation, Diarrhea, Nausea, Vomiting, Difficulty Swallowing, Anorexia Genitourinary: DENIES: Urinary frequency, Urgency, Hematuria, Dysuria Musculoskeletal: DENIES: Joint pain, Muscle aches, Stiffness, Joint Swelling Integumentary: DENIES: Rash Neurologic: DENIES: Abnormal gait, Headache, Localized weakness, Paresthesias, Seizures, Speech Problems, Tremor, Poor Balance Psychiatric: DENIES: Anxiety, Confusion, Mood changes, Depression, Hallucinations, Agitation, Suicidal Ideation, Homicidal Ideation, Delusions Past Family Social History Past Medical History T cell lymphoma Past Surgical History cervical fusion. Reported Medications Hydroxyzine HCl 25 Mg Tab 25 Mg PO TID PRN Vitamin C55-Vzdlo Acid (Cobalamine Combinations) 500-400 Mcg Tab 1 Tab PO DAILY Multiple Vitamin 1 Tab 1 Tab PO DAILY Allergies: Coded Allergies: Oxycodone (Verified Allergy, Severe, HIVES, 05/21/17) Penicillin (Verified Allergy, Intermediate, rash, 05/21/17) *MDRO Multi-Drug Resistant Organism (Verified Adverse Reaction, Unknown, ) MRSA Blood 07/17/14 Active Ordered Medications Current Medications Sodium Chloride 2 ml 2 ml UNSCH PRN IVF FLUSH AFTER USING IV ACCESS; Start 06/02 at 09:45 Sodium Chloride 500 ml @ 500 mls/hr BOLUS ONCE IV ; Start 06/02/17 at 09:45; Stop 06/02/17 at 10:44; Status DC Sodium Chloride 1,000 ml @ 999 mls/hr BOLUS ONCE IV ; Start 06/02/17 at 11:15; Stop 06/02/17 at 12:15; Status DC Sodium Chloride (NS 1000 ml Inj) 1,000 ml @ 125 mls/hr Q8H IV ; Start 06/02/17 at 12:00; Status UNV Ondansetron HCl (Zofran Inj) 4 mg Q8HR PRN IV PUSH NAUSEA; Start 06/02/17 at 12: 00; Status UNV Acetaminophen (Tylenol) 650 mg Q4H PRN PO FEVER/PAIN; Start 06/02/17 at 12:00; Status UNV Family History cancer in the uncle. Social History quit drinking. doesn't smoke. Physical Exam Vital Signs Vital Signs Date Time Temp Pulse Resp B/P Pulse Ox O2 Delivery O2 Flow Rate FiO2 06/02/17 09:35 98.3 110 24 115/66 97 Physical Exam GENERAL: pale and ill -looking- however in no acute distress. SKIN: No rashes, ecchymoses or lesions. Cool and dry. HEAD: Atraumatic. Normocephalic. No temporal or scalp tenderness. EYES: pale conjunctivae ENT: Nose without bleeding, purulent drainage or septal hematoma. Throat without erythema, tonsillar hypertrophy or exudate. Uvula midline. Airway patent. NECK: Trachea midline. No JVD or lymphadenopathy. Supple, nontender, no meningeal signs. CARDIOVASCULAR: Regular rate and rhythm without murmurs, gallops, or rubs. RESPIRATORY: Clear to auscultation. Breath sounds equal bilaterally. No wheezes , rales, or rhonchi. GASTROINTESTINAL: Abdomen soft, non-tender, nondistended. No hepato-splenomegaly , or palpable masses. No guarding. MUSCULOSKELETAL: Extremities without clubbing, cyanosis, or edema. No joint tenderness, effusion, or edema noted. No calf tenderness. Negative Homans sign bilaterally. NEUROLOGICAL: Awake and alert. Cranial nerves II through XII intact. Motor and sensory grossly within normal limits. Five out of 5 muscle strength in all muscle groups. Normal speech. Laboratory Laboratory Tests Test 06/02/17 09:55 White Blood Count 3.7 Red Blood Count 3.23 Hemoglobin 9.1 Hematocrit 27.8 Mean Corpuscular Volume 86.0 Mean Corpuscular Hemoglobin 28.2 Mean Corpuscular Hemoglobin 32.7 Concent Red Cell Distribution Width 16.5 Platelet Count 61 Mean Platelet Volume 9.3 Neutrophils (%) (Auto) Lymphocytes (%) (Auto) Monocytes (%) (Auto) Eosinophils (%) (Auto) Basophils (%) (Auto) Neutrophils # (Auto) Lymphocytes # (Auto) Monocytes # (Auto) Eosinophils # (Auto) Basophils # (Auto) CBC Comment AUTO DIFF Differential Total Cells 100 Counted Neutrophils % (Manual) 65 Band Neutrophils % 16 Lymphocytes % 13 Monocytes % 3 Eosinophils % 2 Neutrophils # (Manual) 3.0 Myelocytes 1 Differential Comment FINAL DIFF MANUAL Toxic Granulation 1+ Platelet Estimate LOW Platelet Morphology Comment NORMAL Tear Drop Cells 1+ Ovalocytes 2+ Prothrombin Time 22.3 Prothromb Time International 2.0 Ratio Activated Partial 34.2 Thromboplast Time Sodium Level 133 Potassium Level 5.1 Chloride Level 95 Carbon Dioxide Level 22.9 Anion Gap 15 Blood Urea Nitrogen 31 Creatinine 3.00 Estimat Glomerular Filtration 22 Rate Random Glucose 119 Calcium Level 13.7 Protein Corrected Calcium Total Bilirubin 2.5 Aspartate Amino Transf 70 (AST/SGOT) Alanine Aminotransferase 49 (ALT/SGPT) Alkaline Phosphatase 144 Total Creatine Kinase 49 Troponin I LESS THAN 0.02 Total Protein 4.8 Albumin 2.2 Blood Type B POSITIVE Antibody Screen POSITIVE Antibody Identification Anti-Jka Antigen Identification Jka Antigen - NEGATIVE Crossmatch Leukocyte-Reduced Red Blood Cells Blood Bank Comment Result Diagram: 06/02/17 0955 06/02/17 0955 Imaging Last Impressions Chest X-Ray 06/02/17 0940 Signed Impressions: Service Date/Time: Friday, June 02, 2017 09:59 - CONCLUSION: Underinflation with atelectasis at the lung bases. Otherwise, no acute finding is identified. Will Becker MD Assessment and Plan Assessment and Plan A/P - generalized weakness/ dehydration with history of T-cell Lymphoma- on chemo continue with IV fluid- consult PT in am- consult oncology -acute kidney injury / hypercalcemia due to dehydration continue IV fluid and monitor I/O, renal function and electrolytes -pancytopenia- will monitor- oncology evaluation as noted above -DVT prophylaxis with SCD's. Discussed Condition With ER physician and the patient. Physician Certification 2 Midnight Certification Type: Admission for Inpatient Services Order for Inpatient Services The services are ordered in accordance with Medicare regulations or non- Medicare payer requirements, as applicable. In the case of services not specified as inpatient-only, they are appropriately provided as inpatient services in accordance with the 2-midnight benchmark. Estimated LOS (days): 2 days is the estimated time the patient will need to remain in the hospital, assuming treatment plan goals are met and no additional complications. Post-Hospital Plan: Not yet determined Jaciel Klein MD Jun 02, 2017 13:01
[2017-06-02] MEDS: SODIUM CHLOR 0.9% 1000 ML INJ 1,000 ML IV SCH ×2 (16:26→22:28)
[2017-06-02 17:53] LABS: HEMATOCRIT 30.7 % (39.0-51.0); MEAN CELL VOLUME 86.4 FL (80.0-100.0); MEAN CORPUSCULAR HEMOGLOBIN 28.6 PG (27.0-34.0); MEAN CORPUSCULAR HGB CONC 33.1 % (32.0-36.0); PLATELET COUNT 68 TH/MM3 (150-450); RED BLOOD COUNT 3.56 MIL/MM3 (4.50-5.90); WHITE BLOOD COUNT 6.1 TH/MM3 (4.0-11.0)
[2017-06-02 17:55] LABS: HEMO FLAGS AUTO DIFF
[2017-06-02 18:16] LABS: POTASSIUM 5.3 MEQ/L (3.5-5.1)
[2017-06-02 18:29] LABS: BANDS 17 % (0-6); CORRECTED NUCLEATED RBC 2 /100 WBC (0-0); NEUTROPHIL # MANUAL DIFF 3.6 TH/MM3 (1.8-7.7); OVALOCYTES 1+ (NORMAL); PLASMA CELLS 2 % (0-0); PLATELET ESTIMATE SMEAR NORMAL (NORMAL); PLATELET MORPHOLOGY NORMAL (NORMAL); POLYS (SEG NEUTROPHILS) 42 % (16-70); SCAN/DIFF FINAL DIFF MANUAL; WBC DIFF SAMPLE 100
[2017-06-02 18:30] LABS: DOHLE BODIES PRESENT (NONE SEEN); TOXIC GRANULATION 2+ (NORMAL)
[2017-06-02 18:39] LABS: BLOOD GAS HCO3 20 mmol/L (22-26); BLOOD GAS METHEMOGLOBIN 0.5 % (0-2); BLOOD GAS O2 HGB SATURATION 94 % (90-100); BLOOD GAS OXYGEN CONTENT 11.1 Vol % (12.0-20.0); BLOOD GAS PCO2 32 mmHg (38-42); BLOOD GAS PO2 76 mmHG (61-120); BLOOD GAS TOTAL HGB 8.4 G/DL (12.0-16.0); CRITICAL VALUE NO; DRAW SITE RT RADIAL; FIO2 21 %; NUMBER OF ARTERIAL PUNCTURES 2; STAT YES; TEMP CORR TO 98.6; ULNAR PULSE PRESENT
[2017-06-02] MEDS ORDERED: DEXTROSE 50% IN WATER 50 ML SYRINGE IV ONE (18:45)
[2017-06-02] MEDS ORDERED: CEFEPIME INJ 1,000 MG in SODIUM CHLORIDE 0.9% INJ 100 ML IV SCH (20:00)
--- NOTE | 2017-06-02 21:31 | PD.CONS ---
[facility] Service Critical Care Medicine Consult Requested By Primary Care Physician Tye Negron M.D. History of Present Illness 61 year old male with history of T-cell Lymphoma (last chemo was last Thursday) presented with generalized weakness. He hasn't eaten as much over the past few days. He started to feel weak over the past few days and it's been getting worse to the point that he wasn't able to get out of bed. He has been follow- up by . He denies any chest pain, shortness of breath, fever, chills, cough, abdominal pain, nausea, vomiting or diarrhea. Review of Systems Constitutional: COMPLAINS OF: Fatigue, Dizziness, Change in appetite, DENIES: Diaphoretic episodes, Fever, Weight gain, Weight loss, Chills, Night Sweats Endocrine: DENIES: Heat/cold intolerance, Polydipsia, Polyuria, Polyphagia Eyes: DENIES: Blurred vision, Diplopia, Eye inflammation, Eye pain, Vision loss , Photosensitivity, Double Vision Ears, nose, mouth, throat: DENIES: Tinnitus, Hearing loss, Vertigo, Nasal discharge, Oral lesions, Throat pain, Hoarseness, Ear Pain, Running Nose, Epistaxis, Sinus Pain, Toothache, Odynophagia Respiratory: DENIES: Apneas, Cough, Snoring, Wheezing, Hemoptysis, Sputum production, Shortness of breath Cardiovascular: DENIES: Chest pain, Palpitations, Syncope, Dyspnea on Exertion , PND, Lower Extremity Edema, Orthopnea, Claudication Gastrointestinal: DENIES: Abdominal pain, Black stools, Bloody stools, Constipation, Diarrhea, Nausea, Vomiting, Difficulty Swallowing, Anorexia Genitourinary: COMPLAINS OF: Sexual dysfunction, DENIES: Urinary frequency, Urinary incontinence, Urgency, Hematuria, Dysuria, Nocturia, Penile Discharge, Testicular Pain, Testicular Swelling Musculoskeletal: DENIES: Joint pain, Muscle aches, Stiffness, Joint Swelling, Back pain, Neck pain Integumentary: DENIES: Abnormal pigmentation, Nail changes, Pruritus, Rash Hematologic/lymphatic: DENIES: Bruising, Lymphadenopathy Immunologic/allergic: DENIES: Eczema, Urticaria Neurologic: COMPLAINS OF: Abnormal gait, Poor Balance, DENIES: Headache, Localized weakness, Paresthesias, Seizures, Speech Problems, Tremor Psychiatric: DENIES: Anxiety, Confusion, Mood changes, Depression, Hallucinations, Agitation, Suicidal Ideation, Homicidal Ideation, Delusions Past Family Social History Allergies: Coded Allergies: Oxycodone (Verified Allergy, Severe, HIVES, 05/21/17) Penicillin (Verified Allergy, Intermediate, rash, 05/21/17) *MDRO Multi-Drug Resistant Organism (Verified Adverse Reaction, Unknown, ) MRSA Blood 07/17/14 Past Medical History T-cell lymphoma Past Surgical History Cervical fusion Reported Medications Reported Meds & Active Scripts Active Reported Hydroxyzine HCl 25 Mg Tab 25 Mg PO TID PRN Vitamin O50-Cmaya Acid (Cobalamine Combinations) 500-400 Mcg Tab 1 Tab PO DAILY Multiple Vitamin 1 Tab 1 Tab PO DAILY Active Ordered Medications Current Medications Medications (Trade) Dose Ordered Sig/Mariaa Route PRN Reason Start Time Stop Time Status Last Admin Dose Admin Sodium Chloride 2 ml 2 ml UNSCH PRN IVF FLUSH AFTER USING IV ACCESS 06/02/17 09:45 Sodium Chloride (NS 1000 ml Inj) 1,000 ml @ 185 mls/hr Q5H25M IV 06/02/17 15:00 06/02/17 16:26 Ondansetron HCl (Zofran Inj) 4 mg Q8HR PRN IV PUSH NAUSEA 06/02/17 12:00 Acetaminophen (Tylenol) 650 mg Q4H PRN PO FEVER/PAIN 1-10 06/02/17 12:00 Patient Own Medication PT OWN MED: Cobalamine Combinati... DAILY PO 06/03/17 09:00 Future Hold Multivitamins 1 tab 1 tab DAILY PO 06/03/17 09:00 Cefepime HCl/ Sodium Chloride (Maxipime Inj/NS Inj) 100 ml @ 200 mls/hr Q24H IV 06/02/17 20:00 Family History Positive for uncle having cancer No family history of early coronary artery disease Social History Denies smoking or illicit drug abuse Quit drinking a while ago Physical Exam Vital Signs Vital Signs Date Time Temp Pulse Resp B/P Pulse Ox O2 Delivery O2 Flow Rate FiO2 06/02/17 21:00 120 143/63 94 Room Air 06/02/17 18:18 98.7 117 26 107/53 99 Room Air 06/02/17 16:29 98.2 123 29 101/61 95 Room Air 06/02/17 09:35 98.3 110 24 115/66 97 Physical Exam GENERAL: Well-nourished, well-developed but pale patient somehow lethargic. SKIN: Warm and dry. HEAD: Normocephalic. EYES: No scleral icterus. No injection or drainage. NECK: Supple, trachea midline. No JVD or lymphadenopathy. CARDIOVASCULAR: Regular rate and rhythm without murmurs, gallops, or rubs. RESPIRATORY: Breath sounds equal bilaterally. No accessory muscle use. GASTROINTESTINAL: Abdomen soft, non-tender, nondistended. MUSCULOSKELETAL: No cyanosis, or edema. BACK: Nontender without obvious deformity. No CVA tenderness. NEURO EXAM: Mental Status: The patient is alert and oriented to person, place, and time with normal speech. Cranial Nerves: Visual acuity intact bilaterally. Visual raza normal in all quadrants. Pupils are round, reactive to light and accommodation. Extraocular movements are intact without ptosis. Facial sensation is intact to bilaterally to dull, sharp, and light touch stimuli. Facial muscle strength is normal and equal bilaterally. Hearing is normal bilaterally. Voice is normal. Shoulder shrug strong, and equal bilaterally. Tongue protrudes midline and moves symmetrically. Reflexes: Biceps, patellar, and Achilles are 2/4 bilaterally. No clonus. Sensation: Sensation is intact bilaterally to pain and light touch. Two-point discrimination is intact. Motor: Good muscle tone. Strength is 5/5 bilaterally Cerebellar: Tnawbh-vq-zsuy and vctx-[id number] test normal bilaterally. Laboratory Laboratory Tests Test 06/02/17 06/02/17 06/02/17 09:55 17:10 18:23 White Blood Count 3.7 6.1 Red Blood Count 3.23 3.56 Hemoglobin 9.1 10.2 Hematocrit 27.8 30.7 Mean Corpuscular Volume 86.0 86.4 Mean Corpuscular Hemoglobin 28.2 28.6 Mean Corpuscular Hemoglobin 32.7 33.1 Concent Red Cell Distribution Width 16.5 17.0 Platelet Count 61 68 Mean Platelet Volume 9.3 8.7 Neutrophils (%) (Auto) Lymphocytes (%) (Auto) Monocytes (%) (Auto) Eosinophils (%) (Auto) Basophils (%) (Auto) Neutrophils # (Auto) Lymphocytes # (Auto) Monocytes # (Auto) Eosinophils # (Auto) Basophils # (Auto) CBC Comment AUTO DIFF AUTO DIFF Differential Total Cells 100 100 Counted Neutrophils % (Manual) 65 42 Band Neutrophils % 16 17 Lymphocytes % 13 35 Monocytes % 3 4 Eosinophils % 2 Neutrophils # (Manual) 3.0 3.6 Myelocytes 1 Differential Comment FINAL DIFF FINAL DIFF MANUAL MANUAL Toxic Granulation 1+ 2+ Platelet Estimate LOW NORMAL Platelet Morphology Comment NORMAL NORMAL Tear Drop Cells 1+ Ovalocytes 2+ 1+ Prothrombin Time 22.3 Prothromb Time International 2.0 Ratio Activated Partial 34.2 Thromboplast Time Sodium Level 133 133 Potassium Level 5.1 5.3 Chloride Level 95 97 Carbon Dioxide Level 22.9 21.0 Anion Gap 15 15 Blood Urea Nitrogen 31 34 Creatinine 3.00 3.35 Estimat Glomerular Filtration 22 19 Rate Random Glucose 119 49 Calcium Level 13.7 13.5 Protein Corrected Calcium Total Bilirubin 2.5 Aspartate Amino Transf 70 (AST/SGOT) Alanine Aminotransferase 49 (ALT/SGPT) Alkaline Phosphatase 144 Total Creatine Kinase 49 Troponin I LESS THAN 0.02 Total Protein 4.8 5.3 Albumin 2.2 Blood Type B POSITIVE Antibody Screen POSITIVE Antibody Identification Anti-Jka Antigen Identification Jka Antigen - NEGATIVE Crossmatch Leukocyte-Reduced Red Blood Cells Blood Bank Comment Nucleated Red Blood Cells 2 Plasma Cells 2 Dohle Bodies PRESENT Blood Gas Puncture Site RT RADIAL Blood Gas Patient Temperature 98.6 Blood Gas HCO3 20 Blood Gas Base Excess -4.0 Blood Gas Oxygen Saturation 94 Arterial Blood pH 7.41 Arterial Blood Partial 32 Pressure CO2 Arterial Blood Partial 76 Pressure O2 Arterial Blood Oxygen Content 11.1 Arterial Blood 2.0 Carboxyhemoglobin Arterial Blood Methemoglobin 0.5 Blood Gas Hemoglobin 8.4 Blood Gas Inspired Oxygen 21 Result Diagram: 06/02/17 1710 06/02/17 1710 Imaging Last 24 hours Impressions Chest X-Ray 06/02/17 0940 Signed Impressions: Service Date/Time: Friday, June 02, 2017 09:59 - CONCLUSION: Underinflation with atelectasis at the lung bases. Otherwise, no acute finding is identified. Will Becker MD Assessment and Plan Assessment and Plan Neutropenic fever - Empiric antibiotic - Blood cultures to follow - ID consult T-cell lymphoma - Management per medical oncology Hypercalcemia - Aggressive IV fluid hydration - Monitor calcium trend Acute kidney injury - IV hydration - Strict I's and O's - Monitor creatinine and electrolyte levels DVT GI prophylaxis - Teds SCDs - Subcutaneous heparin - Pepcid Critical Care: The total critical care time was 35 minutes. Time to perform other separately billable procedures was not included in the critical care time. Estiven East MD Jun 02, 2017 21:31
[2017-06-02] MEDS: ACETAMINOPHEN 325 MG TAB PO PRN (23:11)
[2017-06-02] MEDS ORDERED: SODIUM CHLOR 0.9% 250 ML INJ 250 ML IV ONE (23:30)
[2017-06-02 23:52] LABS: BICARBONATE 20.1 MEQ/L (21.0-32.0); POTASSIUM 5.2 MEQ/L (3.5-5.1); TOTAL BILIRUBIN ADULT 2.6 MG/DL (0.2-1.0)
[2017-06-03] VITALS (15 sets, daily range): BP systolic 101–113; BP diastolic 55–73; PULSE 101–135; RESP 18–37; TEMP 98.9–101.1; O2SAT 85–96
[2017-06-03] MEDS ORDERED: Vancomycin Consult Pharmacy 1 EA OTHER SCH ×2 (00:30→15:00)
[2017-06-03] MEDS ORDERED: VANCOMYCIN INJ 1,000 MG in SODIUM CHLOR 0.9% 250 ML INJ 250 ML IV ONE (00:30)
[2017-06-03] MEDS ORDERED: diphenhydrAMINE HCL 50 MG/ML VIAL IV ONE (01:00)
[2017-06-03] MEDS: SODIUM CHLOR 0.9% 1000 ML INJ 1,000 ML IV SCH ×2 (01:41→07:39)
[2017-06-03] MEDS ORDERED: CHLORHEXIDINE GLUCONATE 2 % 1 PACK (2 CLOTHS)(extra cloths) TOPICAL PRN (01:45)
[2017-06-03] MEDS: ACETAMINOPHEN 325 MG TAB PO PRN (03:09)
[2017-06-03] MEDS ORDERED: CHLORHEXIDINE GLUCONATE 2 % 1 PACK (2 CLOTHS)(taper/protocol) TOPICAL SCH (04:00)
--- NOTE | 2017-06-03 06:46 | MB ---
cc: ISAURA WILLOUGHBY DATE OF 1955 DATE OF CONSULTATION June 02, 2017 REASON FOR CONSULTATION The patient has a history of peripheral T-cell lymphoma who presents to the emergency department with severe weakness and not feeling well. CHIEF COMPLAINT Weakness. HISTORY OF PRESENT ILLNESS This is a 61-year-old male who has a diagnosis of peripheral T-cell lymphoma which was diagnosed in 2014. He was treated with CHOP chemotherapy. Unfortunately he had recurrent disease. He had a PET/CT scan in May of 2017 which showed extensive lymphadenopathy involving the chest, neck, abdomen and pelvis. He also had significant splenomegaly. A bone marrow biopsy was completed which confirmed the diagnosis of recurrent peripheral T-cell lymphoma. There was a T-cell beta gene rearrangement. He was having constitutional B symptoms. The patient has been started on second-line treatment with gemcitabine and oxaliplatin. The patient now presents to the emergency department with not feeling well, acutely dehydrated, very weak. In the emergency department he was found to have acute elevation of his creatinine to 3. He appeared dry and tachycardiac. When I saw the patient he appeared pale and was having chills. He was able to answer my questions but occasionally mumbled and had non-discernible speech. He stated that he was not feeling well. He was tachycardiac with a heart rate of in 100-110s. Blood pressure was also borderline. I discussed this case with Dr. Klein who was present when I saw this patient. The patient will be transferred to the intensive care unit for close monitoring at this appears to be evolving sepsis. REVIEW OF SYSTEMS A comprehensive 14-point review of systems was completed which is negative except as described in the HPI. PAST MEDICAL HISTORY 1. Peripheral T-cell lymphoma. 2. Persistent pancytopenia due to lymphoma involvement of the bone marrow. 3. Arthritis. 4. Basal cell carcinoma of the right nose. 5. Splenomegaly. 6. Emphysema. 7. COPD. 8. History of jaundice. PAST SURGICAL HISTORY 1. Cervical disk fusion. 2. [id number]-V-[id number] placement and removal. 3. Bone marrow biopsy. 4. Umbilical hernia repair. 5. Colonoscopy. 6. Hemorrhoid surgery. 7. Left knee surgery. 8. Left axillary lymph node biopsy. MEDICATIONS Medications were reviewed in the EMR. ALLERGIES OXYCODONE. PENICILLIN. FAMILY HISTORY Significant for maternal uncle with lymphoma. SOCIAL HISTORY He is . He drinks one to two beers per day. Denies any tobacco or illicit drug use. PHYSICAL EXAMINATION VITAL SIGNS: Blood pressure is 108/56, pulse is in the 100-120s, axillary temperature is 100.8. GENERAL: Acutely ill patient in mild distress. HEENT: Pupils are equal, round, react to light. EOMI. No oral thrush. No oral lesions. NECK: Supple. No JVD. No bruits. No lymphadenopathy. CHEST: Clear to auscultation bilaterally. CARDIAC: S1, S2. Tachycardiac. ABDOMEN: Soft, nontender, nondistended. Bowel sounds are present. EXTREMITIES: Without edema, erythema or cyanosis. SKIN: Without any petechiae, lesion or bruises. NEURO: No focal deficits. PSYCHIATRIC: Mood and affect is appropriate. IMAGING STUDIES Chest x-ray was reviewed; it does not show any pneumonia. ASSESSMENT AND PLAN This is a 61-year-old male with a history of peripheral T-cell lymphoma was treated with CHOP chemotherapy who now has relapsed disease with bone marrow involvement and significant chest and abdominal lymphadenopathy. He is being treated with gemcitabine and oxaliplatin. He presents to the emergency room with weakness, dehydration. 1. Tachycardia, hypotension and fever of 100.8. This is highly concerning for underlying sepsis. We will need to obtain blood cultures x 2. We will start this patient on IV cefepime. He needs aggressive IV hydration. I would recommend admitting this patient to the intensive care unit for close monitoring. Additional antibiotics may need to be added based on the clinical course. We should also obtain an EKG and rule out any underlying cardiac etiology. The case was discussed with Dr. Klein. 2. Anemia. His hemoglobin is currently stable. He does have bone marrow involvement of the lymphoma and also splenomegaly. I will continue to monitor. Packed red blood cells will transfused for hemoglobin of less than 7.5. 3. Thrombocytopenia with a platelet count of 68,000. This is his baseline. We will continue to monitor. 4. Mild hyponatremia, likely due to dehydration. 5. Acute renal failure with a creatinine of 3.23, GFR is 20. This is likely due to prerenal causes from dehydration and likely infection. IV hydration. We will continue to monitor. If his creatinine does not improve, he may need an ultrasound to make sure there is not any compression of the ureters from his adenopathy. Monitor urine output. 6. Transaminitis. This is chronic, likely from his lymphoma. We will continue to monitor. 7. Hypoalbuminemia with albumin of 2.2. Dietitian consult. Encourage oral intake. Ensure or Boost t.i.d. with meals. Thank you for allowing me to participate in the care of this patient. I will continue to follow this patient along. MD AMARIS Tyler/ALEXYS /11:55 PM /6:26 AM MTDD
[2017-06-03 07:59] LABS: HEMATOCRIT 33.1 % (39.0-51.0); MEAN CELL VOLUME 86.1 FL (80.0-100.0); MEAN CORPUSCULAR HGB CONC 33.7 % (32.0-36.0); PLATELET COUNT 59 TH/MM3 (150-450); RED BLOOD COUNT 3.84 MIL/MM3 (4.50-5.90); RED CELL DISTRIBUTION WIDTH 16.2 % (11.6-17.2)
[2017-06-03 08:09] LABS: BICARBONATE 22.9 MEQ/L (21.0-32.0); MAGNESIUM 1.8 MG/DL (1.5-2.5); POTASSIUM 4.5 MEQ/L (3.5-5.1); TOTAL BILIRUBIN ADULT 3.7 MG/DL (0.2-1.0)
[2017-06-03 08:10] LABS: HEMO FLAGS AUTO DIFF
[2017-06-03 08:22] LABS: INTERNATIONAL NORMALIZED RATIO 2.2 RATIO
[2017-06-03 08:24] LABS: PROTHROMBIN TIME - PATIENT 25.6 SEC (9.8-11.6)
[2017-06-03] MEDS ORDERED: [UNRECOGNIZED DRUG - OTHER] PO SCH (09:00)
[2017-06-03] MEDS ORDERED: FOLIC ACID PO SCH (09:00)
[2017-06-03] MEDS ORDERED: MULTIVITAMIN TAB PO SCH (09:00)
--- NOTE | 2017-06-03 10:05 | EKG ---
Date Performed: 06/02/2017 Time Performed: 17:10:58 PTAGE: 61 years EKG: SINUS TACHYCARDIA MARKED LEFT AXIS DEVIATION LOW QRS VOLTAGE IN PRECORDIAL LEADS INCOMPLETE RIGHT BUNDLE BRANCH BLOCK NONSPECIFIC ST & T-WAVE ABNORMALITY ABNORMAL ECG PREVIOUS TRACING : 06/02/2017 09.53 DOCTOR: Toro Berg Interpretating Date/Time 06/03/2017 10:04:07
[2017-06-03 10:13] LABS: ATYPICAL LYMPHOCYTES 8 % (0-0)
[2017-06-03 10:15] LABS: BANDS 2 % (0-6); CORRECTED NUCLEATED RBC 1 /100 WBC (0-0); METAMYELOCYTES 3 % (0-1); MYELOCYTES 3 % (0-0); NEUTROPHIL # MANUAL DIFF 3.5 TH/MM3 (1.8-7.7); POLYS (SEG NEUTROPHILS) 50 % (16-70); PROMYELOCYTES 1 % (0-0); WBC DIFF SAMPLE 100
[2017-06-03 10:17] LABS: OVALOCYTES 2+ (NORMAL); PLATELET ESTIMATE SMEAR LOW (NORMAL); PLATELET MORPHOLOGY NORMAL (NORMAL)
[2017-06-03 10:18] LABS: ACANTHOCYTES OCC (NORMAL); SCAN/DIFF FINAL DIFF MANUAL; TOXIC GRANULATION 1+ (NORMAL)
--- NOTE | 2017-06-03 10:34 | PD.CONS ---
History of Present Illness Service Infectious disease Consult Requested By Dr Jossie East Reason for Consult Evaluate patient with fever and neutropenia Primary Care Physician Tye Negron M.D. Diagnoses: History of Present Illness Patient seen and examined. Records reviewed. Patient is a 61-year-old male, diagnosed to have recurrent peripheral T-cell lymphoma, was apparently started on chemotherapy about 10 days ago, presented to the hospital complaining of significant weakness. He was complaining of not feeling well, and feeling somewhat dehydrated. Patient currently is quite lethargic and unable to give any history. There was no mention in previous notes that he was having any respiratory complaint, GI or any urinary complaints. On presentation he was found to have low WBC. He was febrile. He was also tachycardic but his blood pressures around 110 systolic. He was very lethargic and somewhat encephalopathic. He was initially in the medical floor, and he was transferred to the intensive care unit for closer monitoring for evolving sepsis. Patient was initially diagnosed to have peripheral T-cell lymphoma in 2014, and he was treated with CHOP chemotherapy. He did well, however this year he was worked up for pancytopenia, and he had a bone marrow biopsy which showed evidence of recurrent peripheral T-cell lymphoma. Infectious disease consultation has been requested to evaluate the patient with fever and neutropenia. Review of Systems ROS Limitations: Altered Mental Status Constitutional: COMPLAINS OF: Fever Past Family Social History Allergies: Coded Allergies: Oxycodone (Verified Allergy, Severe, HIVES, 05/21/17) Penicillin (Verified Allergy, Intermediate, rash, 05/21/17) *MDRO Multi-Drug Resistant Organism (Verified Adverse Reaction, Unknown, ) MRSA Blood 07/17/14 Past Medical History Arthritis Basal cell cancer in the nose Pancytopenia due to chemotherapy Hemorrhoids Peripheral T-cell lymphoma initially diagnosed in 2013 There is also mention of cancer in the scalp Previous MRSA bacteremia back in 2013 treated, felt to be due to port COPD Jaundice During his last admission in January, he had elevated LFTs, and workup showed probable chronic cholecystitis Past Surgical History Cervical disc fusion Hkzcil-[id number] placement and removal, and subsequently placement of a new port Left scalp biopsy Left axillary lymph node biopsy Umbilical hernia repair Hemorrhoidectomy Left knee surgery Previous colonoscopy Active Ordered Medications Tylenol Cefepime MVI Zofran Vanco 1 dose Family History There is family history of lymphoma on a maternal aunt uncle Otherwise noncontributory to current ID problem Social History Patient is 1-2 beers per day No smoking No illicit drugs Physical Exam Vital Signs Vital Signs Date Time Temp Pulse Resp B/P Pulse Ox O2 Delivery O2 Flow Rate FiO2 06/03/17 08:52 100.1 135 20 111/55 92 06/03/17 08:00 135 06/03/17 08:00 101.1 135 37 111/55 85 06/03/17 06:00 106 06/03/17 04:00 98.9 102 18 103/66 96 06/03/17 04:00 102 06/03/17 03:15 100.4 101 22 106/71 96 06/03/17 02:00 110 06/03/17 01:29 100.1 110 20 107/69 96 06/03/17 00:51 113 06/03/17 00:38 118 103/58 96 Room Air 06/03/17 00:00 110 06/02/17 23:58 102.2 124 105/62 06/02/17 23:45 123 107/72 94 06/02/17 23:38 128 108/56 95 06/02/17 23:13 100.8 120 115/57 96 06/02/17 22:03 126 20 133/66 96 Room Air 06/02/17 21:26 95 Room Air 06/02/17 21:00 120 143/63 94 Room Air 06/02/17 18:18 98.7 117 26 107/53 99 Room Air 06/02/17 16:29 98.2 123 29 101/61 95 Room Air Physical Exam GENERAL: Patient is a well-nourished, well-developed CM, lethargic, restless , not in respiratory distress. SKIN: Warm and dry. No ecchymoses and no evidence of embolic lesions. Has what looks like spider angiomatas in his upper chest HEAD: Atraumatic. Normocephalic. No temporal wasting, or tenderness. EYES: [place] conjunctiva. No petechia or hemorrhage. Pupils equal, round and reactive to light. Mild scleral icterus. No injection or drainage. EARS, NOSE AND THROAT: Nose without bleeding or purulent nasal discharge. No sinus tenderness. Very dry oral mucosa NECK: Trachea midline. Supple and not tender, no meningeal signs CARDIOVASCULAR: Tachycardic, regular rate and rhythm. No murmurs, rubs or gallops heard RESPIRATORY: Clear to auscultation. Breath sounds equal bilaterally. No rales , wheezing or rhonchi. Decreased BS at bases. Port in L upper chest with no evidence of infection ABDOMEN: Mildly distended, got agitated during palpation, no guarding, bowel sounds present and normoactive. EXTREMITIES: No clubbing, cyanosis, or edema. No joint effusion, has good ROM. No calf tenderness. Well perfused and warm. NEUROLOGICAL: Lethargic, confused, mumbling. Moving all extremities, no Babinski, no ankle clonus PSYCHIATRIC: Unable to assess. LINE: Port with no evidence of infection : Has condom cath in place, urine looks clear Laboratory Laboratory Tests Test 06/02/17 06/02/17 06/02/17 06/03/17 17:10 18:23 23:15 02:49 White Blood Count 6.1 Red Blood Count 3.56 Hemoglobin 10.2 Hematocrit 30.7 Mean Corpuscular Volume 86.4 Mean Corpuscular Hemoglobin 28.6 Mean Corpuscular Hemoglobin 33.1 Concent Red Cell Distribution Width 17.0 Platelet Count 68 Mean Platelet Volume 8.7 Neutrophils (%) (Auto) Lymphocytes (%) (Auto) Monocytes (%) (Auto) Eosinophils (%) (Auto) Basophils (%) (Auto) Neutrophils # (Auto) Lymphocytes # (Auto) Monocytes # (Auto) Eosinophils # (Auto) Basophils # (Auto) CBC Comment AUTO DIFF Differential Total Cells 100 Counted Neutrophils % (Manual) 42 Band Neutrophils % 17 Lymphocytes % 35 Monocytes % 4 Neutrophils # (Manual) 3.6 Nucleated Red Blood Cells 2 Differential Comment FINAL DIFF MANUAL Plasma Cells 2 Toxic Granulation 2+ Dohle Bodies PRESENT Platelet Estimate NORMAL Platelet Morphology Comment NORMAL Ovalocytes 1+ Sodium Level 133 132 Potassium Level 5.3 5.2 Chloride Level 97 99 Carbon Dioxide Level 21.0 20.1 Anion Gap 15 13 Blood Urea Nitrogen 34 35 Creatinine 3.35 3.23 Estimat Glomerular Filtration 19 20 Rate Random Glucose 49 61 Calcium Level 13.5 13.3 Protein Corrected Calcium Total Protein 5.3 4.8 Blood Gas Puncture Site RT RADIAL Blood Gas Patient Temperature 98.6 Blood Gas HCO3 20 Blood Gas Base Excess -4.0 Blood Gas Oxygen Saturation 94 Arterial Blood pH 7.41 Arterial Blood Partial 32 Pressure CO2 Arterial Blood Partial 76 Pressure O2 Arterial Blood Oxygen Content 11.1 Arterial Blood 2.0 Carboxyhemoglobin Arterial Blood Methemoglobin 0.5 Blood Gas Hemoglobin 8.4 Blood Gas Inspired Oxygen 21 Total Bilirubin 2.6 Aspartate Amino Transf 104 (AST/SGOT) Alanine Aminotransferase 49 (ALT/SGPT) Alkaline Phosphatase 140 Albumin 2.2 Blood Type B POSITIVE Crossmatch Leukocyte-Reduced Red Blood Cells Blood Bank Comment Test 06/03/17 07:28 White Blood Count 6.0 Red Blood Count 3.84 Hemoglobin 11.1 Hematocrit 33.1 Mean Corpuscular Volume 86.1 Mean Corpuscular Hemoglobin 29.0 Mean Corpuscular Hemoglobin 33.7 Concent Red Cell Distribution Width 16.2 Platelet Count 59 Mean Platelet Volume 8.9 Neutrophils (%) (Auto) Lymphocytes (%) (Auto) Monocytes (%) (Auto) Eosinophils (%) (Auto) Basophils (%) (Auto) Neutrophils # (Auto) Lymphocytes # (Auto) Monocytes # (Auto) Eosinophils # (Auto) Basophils # (Auto) CBC Comment AUTO DIFF Prothrombin Time 25.6 Prothromb Time International 2.2 Ratio Sodium Level 137 Potassium Level 4.5 Chloride Level 101 Carbon Dioxide Level 22.9 Anion Gap 13 Blood Urea Nitrogen 38 Creatinine 3.48 Estimat Glomerular Filtration 18 Rate Random Glucose 54 Calcium Level 13.6 Protein Corrected Calcium Phosphorus Level 0.7 Magnesium Level 1.8 Total Bilirubin 3.7 Aspartate Amino Transf 118 (AST/SGOT) Alanine Aminotransferase 52 (ALT/SGPT) Alkaline Phosphatase 160 Total Protein 5.1 Albumin 2.4 Date/Time Procedure Status Source Growth 06/03/17 00:11 Aerobic Blood Culture Received Blood Line Pending 06/03/17 00:11 Anaerobic Blood Culture Received Blood Line Pending Result Diagram: 06/03/17 0728 06/03/17 0728 Imaging RADIOLOGY STUDIES/FILMS REVIEWED Last Impressions Chest X-Ray 06/02/17 0940 Signed Impressions: Service Date/Time: Friday, June 02, 2017 09:59 - CONCLUSION: Underinflation with atelectasis at the lung bases. Otherwise, no acute finding is identified. Will Becker MD Assessment and Plan Assessment and Plan IMPRESSION Sepsis on admission, source? - ?GB - recent chemotherapy, initial WBC low, now increasing Recurrent peripheral T-cell lymphoma Previous work-up for elevated LFT showed possible chronic cholecystitis, LFTs up again Renal insufficiency, due to sepsis, ?dehydration ?With underlying chronic liver disease, ?ETOH RECOMMENDATION Continue Cefepime Add Flagyl Got one dose of Vanco - check level in AM US of abdomen - look at kidneys and GB Follow C/S Follow temps Monitor progress I will follow along with you Thank you for this consultation Discussed Condition With D/W Sasha Cedillo MD Jun 03, 2017 10:34
[2017-06-03] MEDS ORDERED: metroNIDAZOLE 500 MG INJ 100 ML IV SCH (11:00)
[2017-06-03] MEDS ORDERED: DEXT 5%-NACL 0.9% 1000 ML INJ 1,000 ML IV SCH (11:00)
[2017-06-03] MEDS ORDERED: DEXTROSE 50% IN WATER 50 ML VIAL(D50) IV PRN (11:00)
[2017-06-03] MEDS: INSULIN NovoLIN REGULAR SUPPLEMENTAL SCALE SQ SCH ×5 (11:00→17:55)
[2017-06-03] MEDS ORDERED: GLUCAGON 1 MG/ML VIAL OTHER PRN (11:00)
[2017-06-03] MEDS ORDERED: DEXTROSE 50% IN WATER 50 ML SYRINGE ONE (11:08)
[2017-06-03] MEDS ORDERED: METOPROLOL TARTRATE 5 MG/5 ML VIAL ONE (11:08)
--- NOTE | 2017-06-03 11:50 | EKG ---
Date Performed: 06/02/2017 Time Performed: 09:53:44 PTAGE: 61 years EKG: SINUS TACHYCARDIA BORDERLINE LEFT AXIS DEVIATION LOW QRS VOLTAGE IN PRECORDIAL LEADS POSSIB LE RIGHT VENTRICULAR CONDUCTION DELAY NONSPECIFIC T-WAVE ABNORMALITY ABNORMAL RHYTHM ECG PREVIOUS TRACING : 05/19/2017 12.51 DOCTOR: Toro Berg Interpretating Date/Time 06/03/2017 11:49:41
[2017-06-03 12:05] LABS: BLOOD GAS BASE EXCESS -7.1 mmol/L (-2-2); BLOOD GAS CARBOXYHEMOGLOBIN 2.2 % (0-4); BLOOD GAS HCO3 17 mmol/L (22-26); BLOOD GAS METHEMOGLOBIN 1.1 % (0-2); BLOOD GAS O2 HGB SATURATION 95 % (90-100); BLOOD GAS OXYGEN CONTENT 14.2 Vol % (12.0-20.0); BLOOD GAS PCO2 27 mmHg (38-42); BLOOD GAS PO2 102 mmHg (61-120); BLOOD GAS TOTAL HGB 10.5 G/DL (12.0-16.0); TEMP CORR TO 98.6
[2017-06-03 12:06] LABS: CRITICAL VALUE NO; DRAW SITE RT RADIAL; FIO2 28 %; LITER FLOW 2 L/M; NUMBER OF ARTERIAL PUNCTURES 1; OXYGEN DEVICE NASAL CANNULA; STAT YES; ULNAR PULSE PRESENT
[2017-06-03] MEDS ORDERED: HALOPERIDOL LACTATE 5 MG/ML AMP IV PUSH ONE (12:15)
[2017-06-03 12:45] LABS: BACTERIA, URINE RARE /hpf; BLOOD, URINE NEG (NEG); COMMENT (UR) CATH-CULTURE IND; CULTURE IF INDICATED CATH CULTURE IND; GLUCOSE,URINE NEG (NEG); HYALINE CAST, URINE 68 /lpf (RARE); KETONE, URINE TRACE mg/dL (NEG); MUCUS URINE FEW /lpf (OCC); NITRITE,URINE NEG (NEG); SQUAMOUS EPITHELIAL CELL URINE 1 /hpf (0-5); URINE COLOR DARK-BROWN (YELLW/STRAW)
[2017-06-03] MEDS ORDERED: PANTOPRAZOLE SODIUM 40 MG VIAL IV PUSH SCH (12:45)
--- NOTE | 2017-06-03 12:54 | HHI.CCPN ---
Subjective Remarks/Hospital Course 61 year old male with history of T-cell Lymphoma (last chemo was last Thursday) presented with generalized weakness. He hasn't eaten as much over the past few days. He started to feel weak over the past few days and it's been getting worse to the point that he wasn't able to get out of bed. He has been follow- up by . He denies any chest pain, shortness of breath, fever, chills, cough, abdominal pain, nausea, vomiting or diarrhea. 06/03 Patient has fever with T: 101.1 at 8 am. appears lethargic confused at times BS 53 given 1 amp D50. Objective Vital Signs Date Time Temp Pulse Resp B/P Pulse Ox O2 Delivery O2 Flow Rate FiO2 06/03/17 10:00 135 06/03/17 08:52 100.1 20 111/55 92 06/03/17 00:38 Room Air Intake and Output 06/02/17 06/02/17 06/03/17 08:00 16:00 00:00 Output Total 140 ml Balance -140 ml Result Diagram: 06/03/17 0728 06/03/17 0728 Other Results Laboratory Tests Test 06/02/17 06/02/17 06/02/17 06/03/17 17:10 18:23 23:15 01:10 White Blood Count 6.1 TH/MM3 Red Blood Count 3.56 MIL/MM3 Hemoglobin 10.2 GM/DL Hematocrit 30.7 % Mean Corpuscular Volume 86.4 FL Mean Corpuscular Hemoglobin 28.6 PG Mean Corpuscular Hemoglobin 33.1 % Concent Red Cell Distribution Width 17.0 % Platelet Count 68 TH/MM3 Mean Platelet Volume 8.7 FL Neutrophils (%) (Auto) % Lymphocytes (%) (Auto) % Monocytes (%) (Auto) % Eosinophils (%) (Auto) % Basophils (%) (Auto) % Neutrophils # (Auto) TH/MM3 Lymphocytes # (Auto) TH/MM3 Monocytes # (Auto) TH/MM3 Eosinophils # (Auto) TH/MM3 Basophils # (Auto) TH/MM3 CBC Comment AUTO DIFF Differential Total Cells 100 Counted Neutrophils % (Manual) 42 % Band Neutrophils % 17 % Lymphocytes % 35 % Monocytes % 4 % Neutrophils # (Manual) 3.6 TH/MM3 Nucleated Red Blood Cells 2 /100 WBC Differential Comment FINAL DIFF MANUAL Plasma Cells 2 % Toxic Granulation 2+ Dohle Bodies PRESENT Platelet Estimate NORMAL Platelet Morphology Comment NORMAL Ovalocytes 1+ Sodium Level 133 MEQ/L 132 MEQ/L Potassium Level 5.3 MEQ/L 5.2 MEQ/L Chloride Level 97 MEQ/L 99 MEQ/L Carbon Dioxide Level 21.0 MEQ/L 20.1 MEQ/L Anion Gap 15 MEQ/L 13 MEQ/L Blood Urea Nitrogen 34 MG/DL 35 MG/DL Creatinine 3.35 MG/DL 3.23 MG/DL Estimat Glomerular Filtration 19 ML/MIN 20 ML/MIN Rate Random Glucose 49 MG/DL 61 MG/DL Calcium Level 13.5 MG/DL 13.3 MG/DL Protein Corrected Calcium MG/DL MG/DL Total Protein 5.3 GM/DL 4.8 GM/DL Blood Gas Puncture Site RT RADIAL Blood Gas Patient Temperature 98.6 Blood Gas HCO3 20 mmol/L Blood Gas Base Excess -4.0 mmol/L Blood Gas Oxygen Saturation 94 % Arterial Blood pH 7.41 Arterial Blood Partial 32 mmHg Pressure CO2 Arterial Blood Partial 76 mmHG Pressure O2 Arterial Blood Oxygen Content 11.1 Vol % Arterial Blood 2.0 % Carboxyhemoglobin Arterial Blood Methemoglobin 0.5 % Blood Gas Hemoglobin 8.4 G/DL Blood Gas Inspired Oxygen 21 % Total Bilirubin 2.6 MG/DL Aspartate Amino Transf 104 U/L (AST/SGOT) Alanine Aminotransferase 49 U/L (ALT/SGPT) Alkaline Phosphatase 140 U/L Albumin 2.2 GM/DL Nasal Screen MRSA (PCR) MRSA NOT DETECTED Test 06/03/17 06/03/17 06/03/17 02:49 07:28 11:50 Blood Type B POSITIVE Crossmatch Leukocyte-Reduced Red Blood Cells Blood Bank Comment White Blood Count 6.0 TH/MM3 Red Blood Count 3.84 MIL/MM3 Hemoglobin 11.1 GM/DL Hematocrit 33.1 % Mean Corpuscular Volume 86.1 FL Mean Corpuscular Hemoglobin 29.0 PG Mean Corpuscular Hemoglobin 33.7 % Concent Red Cell Distribution Width 16.2 % Platelet Count 59 TH/MM3 Mean Platelet Volume 8.9 FL Neutrophils (%) (Auto) % Lymphocytes (%) (Auto) % Monocytes (%) (Auto) % Eosinophils (%) (Auto) % Basophils (%) (Auto) % Neutrophils # (Auto) TH/MM3 Lymphocytes # (Auto) TH/MM3 Monocytes # (Auto) TH/MM3 Eosinophils # (Auto) TH/MM3 Basophils # (Auto) TH/MM3 CBC Comment AUTO DIFF Differential Total Cells 100 Counted Neutrophils % (Manual) 50 % Band Neutrophils % 2 % Lymphocytes % 29 % Monocytes % 4 % Neutrophils # (Manual) 3.5 TH/MM3 Metamyelocytes 3 % Myelocytes 3 % Promyelocytes 1 % Nucleated Red Blood Cells 1 /100 WBC Differential Comment FINAL DIFF MANUAL Atypical Lymphocytes 8 % Toxic Granulation 1+ Platelet Estimate LOW Platelet Morphology Comment NORMAL Ovalocytes 2+ Acanthocytes OCC Prothrombin Time 25.6 SEC Prothromb Time International 2.2 RATIO Ratio Sodium Level 137 MEQ/L Potassium Level 4.5 MEQ/L Chloride Level 101 MEQ/L Carbon Dioxide Level 22.9 MEQ/L Anion Gap 13 MEQ/L Blood Urea Nitrogen 38 MG/DL Creatinine 3.48 MG/DL Estimat Glomerular Filtration 18 ML/MIN Rate Random Glucose 54 MG/DL Calcium Level 13.6 MG/DL Protein Corrected Calcium MG/DL Phosphorus Level 0.7 MG/DL Magnesium Level 1.8 MG/DL Total Bilirubin 3.7 MG/DL Aspartate Amino Transf 118 U/L (AST/SGOT) Alanine Aminotransferase 52 U/L (ALT/SGPT) Alkaline Phosphatase 160 U/L Total Protein 5.1 GM/DL Albumin 2.4 GM/DL Blood Gas Puncture Site RT RADIAL Blood Gas Patient Temperature 98.6 Blood Gas HCO3 17 mmol/L Blood Gas Base Excess -7.1 mmol/L Blood Gas Oxygen Saturation 95 % Arterial Blood pH 7.40 Arterial Blood Partial 27 mmHg Pressure CO2 Arterial Blood Partial 102 mmHg Pressure O2 Arterial Blood Oxygen Content 14.2 Vol % Arterial Blood 2.2 % Carboxyhemoglobin Arterial Blood Methemoglobin 1.1 % Blood Gas Hemoglobin 10.5 G/DL Oxygen Delivery Device NASAL CANNULA Blood Gas Liter Flow 2 L/M Blood Gas Inspired Oxygen 28 % Imaging Last Impressions Chest X-Ray 06/02/17 0940 Signed Impressions: Service Date/Time: Friday, June 02, 2017 09:59 - CONCLUSION: Underinflation with atelectasis at the lung bases. Otherwise, no acute finding is identified. Will Becker MD Objective Remarks GENERAL: Well-nourished, well-developed but pale patient somehow lethargic. SKIN: Warm and dry. HEAD: Normocephalic. EYES: No scleral icterus. No injection or drainage. NECK: Supple, trachea midline. No JVD or lymphadenopathy. CARDIOVASCULAR: Tachycardic without murmurs, gallops, or rubs. RESPIRATORY: Breath sounds equal bilaterally. No accessory muscle use. GASTROINTESTINAL: Abdomen soft, non-tender, nondistended. MUSCULOSKELETAL: No cyanosis, or edema. BACK: Nontender without obvious deformity. No CVA tenderness. NEURO EXAM: No focal sensory deficits A/P Assessment and Plan 1) Resp Insuff 2)AMS- Multifactorial likely 2nd hypercalcemia, renal failure , sepsis 3)Neutropenic fever 4)T-cell lymphoma s/p [facility] chemo 5)Hypercalcemia 6)Acute kidney injury 7)Elevated LFT's 8)Anemia, thrombocytopenia 9)Hypoglycemic episode Plan Neuro: Monitor neuro status and avoid sedatives Check CT brain- no acute disease, check Ammonia level, TSH neuro eval, spoke to Dr. Beckwith will proceed with LP and place empirically on Acyclovir for now. Discussed with IR- Dr. Mcdonald will give 2units FFP and Vitamin K to correct coagulopathy ( INR 2.2 today) and he will plan to do it today. Pulm: Continue with oxygen keep sat >92% Bronchodilators, aspiration precautions CXR 06/02 no acute disease. Check ABG CV: Monitor HR and BP keep MAP>65mmHg : Monitor renal function, I/O's, avoid nephrotoxins Check US abdomen, Renal eval. IVF NS@150 ml/hr, Add Calcitonin 200mg Sq BID x 4 doses then stop. Discussed with Dr. Rosen Monitor Ca level. D10 @100ml/hr for hypoglycemic episodes GI: Keep NPO, monitor LFT';s, ID: Continue with abx per ID (Cefepime, Flagyl) Vanco x1 dose, pharmacy to adjust doses of anx per renal function. 06/03 BCx 2 sets, check UA with cx if needed, Discussed with ID will cover empirically for meningitis, Add Acyclovir for now. Heme/Onc: Monitor CBC, coags, Check Fibrinogen level. Heme Onc on case- Dr. Bolton- Patient with T-cell Lymphoma s/p CHOP chemo now with relapsed disease Will correct coagulopathy with 2u FFP and vitamin K 5mg for LP. Endo: SSI with accuchecks, GI prophylaxis- place on Protonix 40mg daily DVT prophylaxis- INR: 2.2 today Addendum: Consult Hospice service per family's request. Level 3 Yonatan Spencer MD Jun 03, 2017 12:54
--- NOTE | 2017-06-03 13:27 | RADRPT ---
EXAM DATE/TIME: 06/03/2017 13:02 [facility] COMPARISON: No previous studies available for comparison. INDICATIONS : Sudden onset of altered mental status. RADIATION DOSE: 35.13 CTDIvol (mGy) MEDICAL HISTORY : Lymphoma. Hernia, hiatal. Hernia, umbilical. SURGICAL HISTORY : Fusion, cervical. ENCOUNTER: Initial ACUITY: 1 day PAIN SCALE: Non-responsive LOCATION: cranial TECHNIQUE: Multiple contiguous axial images were obtained of the head. Using automated exposure control and adj ustment of the mA and/or kV according to patient size, radiation dose was kept as low as reasonably a chievable to obtain optimal diagnostic quality images. DICOM format image data is available electro nically for review and comparison. FINDINGS: Motion degraded study. CEREBRUM: The ventricles are normal for age. No evidence of midline shift, mass lesion, hemorrhage or acute in farction. No extra-axial fluid collections are seen. POSTERIOR FOSSA: The cerebellum and brainstem are intact. The 4th ventricle is midline. The cerebellopontine angle i s unremarkable. EXTRACRANIAL: The visualized portion of the orbits is intact. SKULL: The calvaria is intact. No evidence of skull fracture. CONCLUSION: No acute disease. Philip Mcdonald Jr., MD on June 03, 2017 at 13:24 Board Certified Radiologist. This report was verified electronically.
--- NOTE | 2017-06-03 14:31 | RADRPT ---
EXAM DATE/TIME: 06/03/2017 10:58 [facility] COMPARISON: CT ABDOMEN & PELVIS W/O CONTRAST, February 01, 2017, 11:08. US ABDOMEN - COMPLETE, January 30, 2017, 15:3 0. INDICATIONS : Cholecystitis. MEDICAL HISTORY : Gastroesophageal reflux disease. Arthritis. Lymphoma. Dentures. Neck pain. Reading glasses. Neuropath y. Headache. Numbness. Shortness of breath. Hiatal hernia. Depression. Chemotherapy. SURGICAL HISTORY : Cervical fusion. Port placement and removal. Umbilical hernia repair. Left knee arthroscopy. ENCOUNTER: Subsequent ACUITY: 4-6 months PAIN SCORE: Nonresponsive. LOCATION: Abdomen. MEASUREMENTS: LIVER: 18.9 cm length COMMON DUCT: 4 mm RIGHT KIDNEY: 10.0 x 4.5 x 4.3 cm LEFT KIDNEY: 10.7 x 3.8 x 4.4 cm SPLEEN: 31.2 cm length AORTA: 2.8cm maximal FINDINGS: LIVER: The liver is diffusely echogenic. No mass or ductal dilatation. Hepatopedal flow within the portal ve in. COMMON DUCT: No intraluminal mass or stone visualized. GALLBLADDER: There is a 1 cm stone involving the neck of the gallbladder. The patient was uncooperative and theref ore left lateral decubitus positioning could not be performed to assess for movement of the stone. Th e gallbladder wall is thickened measuring 7 mm. This is more thick than on the prior study. A small a mount of pericholecystic fluid is noted. PANCREAS: The pancreas is almost totally obscured by bowel gas. A very small portion of the pancreatic head is seen and is unremarkable. RIGHT KIDNEY: No hydronephrosis, stone or mass. LEFT KIDNEY: No hydronephrosis, stone or mass. SPLEEN: There is a 3.3 cm hypoechoic lesion involving the spleen within its more peripheral aspect. This is w ithout correlate seen on the recent unenhanced CT. The spleen is grossly enlarged. AORTA: Poorly seen. IVC: Poorly seen. A small volume of ascitic fluid is seen. The pleural effusion is noted on the right. CONCLUSION: 1. Hepatic steatosis. 2. Solitary gallstone with a thickened gallbladder wall. A thickened gallbladder wall could relate to venous congestion relating to the patient's hepatic disease. I cannot exclude acute cholecystitis. H NORA scan can be utilized to further differentiate if needed. 3. Splenomegaly. 4. 3.3 cm nonspecific lesion involving the spleen. This could be further assessed with MRI with and w ithout gadolinium. 5. Small volume ascites. 6. Right pleural effusion. Philip Mcdonald Jr., MD on June 03, 2017 at 14:20 Board Certified Radiologist. This report was verified electronically.
[2017-06-03] MEDS ORDERED: PHYTONADIONE 10 MG/ML VIAL SQ ONE (15:00)
[2017-06-03] MEDS ORDERED: DEXTROSE 10% INJ 1,000 ML IV SCH (15:30)
--- NOTE | 2017-06-03 15:34 | MB ---
cc: BRENT SMITH M.D. DATE OF CONSULTATION: 06/03/2017 HISTORY OF PRESENT ILLNESS The patient is a 61-year-old with a history of T-cell lymphoma. After chemotherapy he declined and was admitted to the hospital yesterday. Subsequently he was transferred to the unit because of worsening of his condition. He has become more encephalopathic. He has had a fever and has been evaluated by Infectious Disease. He is running a low platelet count as well as he has elevated INR. Apparently he does not take Coumadin. Here today reportedly he was conversant but confused. NEUROLOGICAL EXAMINATION When I saw him he was a lethargic, obtunded, moaning and groaning and not following any commands. He was restless to a mild degree. Eyes closed. Pupils appear to be the same size and he has primary gaze. He was moving all four extremities with some suggestion of least moderately severe generalized weakness. Reflexes were diminished versus absent throughout. Plantar response is none versus flexor. ANCILLARY DATA WBC today 6.0, hemoglobin 11.1, platelets 59. Yesterday platelets were 61, WBC 3.7 and hemoglobin 9.1. Sodium was 132 today, BUN 38, creatinine 3.48, calcium 13.6. Glucose was 61 yesterday and today is 54. Liver enzymes are moderately elevated. IMAGING CT brain: No acute disease. ASSESSMENT AND RECOMMENDATIONS Acute encephalopathy. The cause is uncertain. It could well be a metabolic source and more likely to be so. Nonetheless, the possibility of an infectious process, either bacterial or viral should be considered in this patient with immunosuppression. I have discussed this with Dr. Spencer who is the decorator store taking care of the patient and he is going to talk to the other treating physician and see if it is feasible to have a lumbar puncture after fresh frozen plasma as he has low platelets and high INR. Would also consider doing antibiotic prophylaxis and possibly acyclovir prophylaxis for the time-being until a better diagnosis is made. Evidently at least he has sepsis to go along with his systemic illness. I will follow the neurological course. Thank you for asking us to assist in his care. MD GRAY Mc/BT /3:16 PM /3:23 PM
[2017-06-03] MEDS ORDERED: ACYCLOVIR INJ 350 MG in SODIUM CHLORIDE 0.9% INJ 50 ML IV SCH (16:00)
[2017-06-03] MEDS ORDERED: SODIUM CHLOR 0.9% 1000 ML INJ 1,000 ML IV SCH (16:00)
--- NOTE | 2017-06-03 18:20 | PD.ONC.PN ---
Subjective Subjective Remarks Tmax 101.3 this am Pt appears miserable, thrashing around in bed in soft restraints. Per RN, the family has requested Hospice at this point. Objective Data Date Time Temp Pulse Resp B/P Pulse Ox O2 Delivery O2 Flow Rate FiO2 06/03/17 17:05 100.3 126 34 113/63 95 06/03/17 16:00 100.5 126 34 113/63 95 06/03/17 16:00 125 06/03/17 14:00 126 06/03/17 12:00 120 06/03/17 12:00 100.3 120 36 101/73 94 06/03/17 10:00 135 06/03/17 08:52 100.1 135 20 111/55 92 06/03/17 08:00 135 06/03/17 08:00 101.1 135 37 111/55 85 06/03/17 06:00 106 06/03/17 04:00 98.9 102 18 103/66 96 06/03/17 04:00 102 06/03/17 03:15 100.4 101 22 106/71 96 06/03/17 02:00 110 06/03/17 01:29 100.1 110 20 107/69 96 06/03/17 00:51 113 06/03/17 00:38 118 103/58 96 Room Air 06/03/17 00:00 110 06/02/17 23:58 102.2 124 105/62 06/02/17 23:45 123 107/72 94 06/02/17 23:38 128 108/56 95 06/02/17 23:13 100.8 120 115/57 96 06/02/17 22:03 126 20 133/66 96 Room Air 06/02/17 21:26 95 Room Air 06/02/17 21:00 120 143/63 94 Room Air 06/02/17 18:18 98.7 117 26 107/53 99 Room Air 06/03/17 06/03/17 06/03/17 07:00 15:00 23:00 Intake Total 988 ml 1650 ml Output Total 440 ml 100 ml Balance 548 ml 1550 ml Result Diagram: 06/03/17 0706/03/17727 Laboratory Results Laboratory Tests Test 06/02/17 06/02/17 06/03/17 06/03/17 18:23 23:15 01:10 02:49 Blood Gas Puncture Site RT RADIAL Blood Gas Patient Temperature 98.6 Blood Gas HCO3 20 mmol/L Blood Gas Base Excess -4.0 mmol/L Blood Gas Oxygen Saturation 94 % Arterial Blood pH 7.41 Arterial Blood Partial 32 mmHg Pressure CO2 Arterial Blood Partial 76 mmHG Pressure O2 Arterial Blood Oxygen Content 11.1 Vol % Arterial Blood 2.0 % Carboxyhemoglobin Arterial Blood Methemoglobin 0.5 % Blood Gas Hemoglobin 8.4 G/DL Blood Gas Inspired Oxygen 21 % Sodium Level 132 MEQ/L Potassium Level 5.2 MEQ/L Chloride Level 99 MEQ/L Carbon Dioxide Level 20.1 MEQ/L Anion Gap 13 MEQ/L Blood Urea Nitrogen 35 MG/DL Creatinine 3.23 MG/DL Estimat Glomerular Filtration 20 ML/MIN Rate Random Glucose 61 MG/DL Calcium Level 13.3 MG/DL Protein Corrected Calcium MG/DL Total Bilirubin 2.6 MG/DL Aspartate Amino Transf 104 U/L (AST/SGOT) Alanine Aminotransferase 49 U/L (ALT/SGPT) Alkaline Phosphatase 140 U/L Total Protein 4.8 GM/DL Albumin 2.2 GM/DL Nasal Screen MRSA (PCR) MRSA NOT DETECTED Blood Type B POSITIVE Crossmatch Leukocyte-Reduced Red Blood Cells Blood Bank Comment Test 06/03/17 06/03/17 06/03/17 06/03/17 07:28 11:30 11:50 14:28 White Blood Count 6.0 TH/MM3 Red Blood Count 3.84 MIL/MM3 Hemoglobin 11.1 GM/DL Hematocrit 33.1 % Mean Corpuscular Volume 86.1 FL Mean Corpuscular Hemoglobin 29.0 PG Mean Corpuscular Hemoglobin 33.7 % Concent Red Cell Distribution Width 16.2 % Platelet Count 59 TH/MM3 Mean Platelet Volume 8.9 FL Neutrophils (%) (Auto) % Lymphocytes (%) (Auto) % Monocytes (%) (Auto) % Eosinophils (%) (Auto) % Basophils (%) (Auto) % Neutrophils # (Auto) TH/MM3 Lymphocytes # (Auto) TH/MM3 Monocytes # (Auto) TH/MM3 Eosinophils # (Auto) TH/MM3 Basophils # (Auto) TH/MM3 CBC Comment AUTO DIFF Differential Total Cells 100 Counted Neutrophils % (Manual) 50 % Band Neutrophils % 2 % Lymphocytes % 29 % Monocytes % 4 % Neutrophils # (Manual) 3.5 TH/MM3 Metamyelocytes 3 % Myelocytes 3 % Promyelocytes 1 % Nucleated Red Blood Cells 1 /100 WBC Differential Comment FINAL DIFF MANUAL Atypical Lymphocytes 8 % Toxic Granulation 1+ Platelet Estimate LOW Platelet Morphology Comment NORMAL Ovalocytes 2+ Acanthocytes OCC Prothrombin Time 25.6 SEC Prothromb Time International 2.2 RATIO Ratio Sodium Level 137 MEQ/L Potassium Level 4.5 MEQ/L Chloride Level 101 MEQ/L Carbon Dioxide Level 22.9 MEQ/L Anion Gap 13 MEQ/L Blood Urea Nitrogen 38 MG/DL Creatinine 3.48 MG/DL Estimat Glomerular Filtration 18 ML/MIN Rate Random Glucose 54 MG/DL Calcium Level 13.6 MG/DL Protein Corrected Calcium MG/DL Phosphorus Level 0.7 MG/DL Magnesium Level 1.8 MG/DL Total Bilirubin 3.7 MG/DL Aspartate Amino Transf 118 U/L (AST/SGOT) Alanine Aminotransferase 52 U/L (ALT/SGPT) Alkaline Phosphatase 160 U/L Total Protein 5.1 GM/DL Albumin 2.4 GM/DL Urine Color DARK-BROWN Urine Turbidity HAZY Urine pH 5.0 Urine Specific [place] 1.022 Urine Protein 30 mg/dL Urine Glucose (UA) NEG mg/dL Urine Ketones TRACE mg/dL Urine Occult Blood NEG Urine Nitrite NEG Urine Bilirubin NEG Urine Urobilinogen 4.0 MG/DL Urine Leukocyte Esterase NEG Urine RBC 6 /hpf Urine WBC 9 /hpf Urine Squamous Epithelial 1 /hpf Cells Urine Amorphous Sediment OCC Urine Bacteria RARE /hpf Urine Hyaline Casts 68 /lpf Urine Mucus FEW /lpf Microscopic Urinalysis Comment CATH-CULTURE IND Blood Gas Puncture Site RT RADIAL Blood Gas Patient Temperature 98.6 Blood Gas HCO3 17 mmol/L Blood Gas Base Excess -7.1 mmol/L Blood Gas Oxygen Saturation 95 % Arterial Blood pH 7.40 Arterial Blood Partial 27 mmHg Pressure CO2 Arterial Blood Partial 102 mmHg Pressure O2 Arterial Blood Oxygen Content 14.2 Vol % Arterial Blood 2.2 % Carboxyhemoglobin Arterial Blood Methemoglobin 1.1 % Blood Gas Hemoglobin 10.5 G/DL Oxygen Delivery Device NASAL CANNULA Blood Gas Liter Flow 2 L/M Blood Gas Inspired Oxygen 28 % Fibrinogen LESS THAN 50 mg/dL Ammonia 44 MCMOL/L Thyroid Stimulating Hormone 7.070 uIU/ML 3rd Gen Test 06/03/17 14:51 Blood Bank Comment Culture Results Microbiology Date/Time Procedure Status Source Growth 06/03/17 00:01 Aerobic Blood Culture Received Blood Line Pending 06/03/17 00:01 Anaerobic Blood Culture Received Blood Line Pending 06/03/17 00:11 Aerobic Blood Culture Received Blood Line Pending 06/03/17 00:11 Anaerobic Blood Culture Received Blood Line Pending 06/03/17 11:30 Urine Culture Received Urine Catheterized Urine Pending Imaging Studies Last [address] 06/03/17 0000 Signed Impressions: Service Date/Time: Saturday, June 03, 2017 13:02 - CONCLUSION: No acute disease. Philip Mcdonald Jr., MD Abdomen Ultrasound 06/03/17 0000 Signed Impressions: Service Date/Time: Saturday, June 03, 2017 10:58 - CONCLUSION: 1. Hepatic steatosis. 2. Solitary gallstone with a thickened gallbladder wall. A thickened gallbladder wall could relate to venous congestion relating to the patient's hepatic disease. I cannot exclude acute cholecystitis. HIDA scan can be utilized to further differentiate if needed. 3. Splenomegaly. 4. 3.3 cm nonspecific lesion involving the spleen. This could be further assessed with MRI with and without gadolinium. 5. Small volume ascites. 6. Right pleural effusion. Philip Mcdonald Jr., MD Administered Medications Medications (Trade) Dose Ordered Sig/Mariaa Route PRN Reason Start Time Stop Time Status Last Admin Dose Admin Acetaminophen (Tylenol) 650 mg Q4H PRN PO FEVER/PAIN 1-10 06/02/17 12:00 06/03/17 03:09 Multivitamins 1 tab 1 tab DAILY PO 06/03/17 09:00 06/03/17 07:39 Cefepime HCl/ Sodium Chloride (Maxipime Inj/NS Inj) 100 ml @ 200 mls/hr Q24H IV 06/02/17 20:00 06/02/17 21:33 Miscellaneous Information Patient in critical care unit? Ass... [id number] .XX 06/03/17 01:45 06/03/17 01:40 Chlorhexidine Gluconate 3 pack 3 pack DAILY@04 TOPICAL 06/03/17 04:00 06/07/17 04:01 06/03/17 01:40 Metronidazole (Flagyl 500 Mg Inj) 100 ml @ 100 mls/hr Q8H IV 06/03/17 11:00 06/03/17 11:10 Dextrose 50 ml 50 ml UNSCH PRN IV HYPOGLYCEMIA-SEE COMMENTS 06/03/17 11:00 06/03/17 12:16 Dextrose/Sodium Chloride (D5W-NS 1000 ml Inj) 1,000 ml @ 125 mls/hr Q8H IV 06/03/17 11:00 06/03/17 11:00 Pantoprazole Sodium 40 mg 40 mg DAILY IV PUSH 06/03/17 12:45 06/03/17 12:45 Acyclovir Sodium 350 mg/Sodium Chloride 50 ml @ 50 mls/hr Q8H IV 06/03/17 16:00 06/03/17 16:00 Dextrose (D10w Inj) 1,000 ml @ 100 mls/hr Q10H IV 06/03/17 15:30 06/03/17 15:30 Objective Remarks GENERAL: Acutely ill appearing male supine in bed in soft restraints. He is thrashing and is not following commands or making appropriate movements. SKIN: Warm and dry. HEAD: Normocephalic. EYES: No injection or drainage. NECK: Supple, trachea midline. CARDIOVASCULAR: +S1/S2. Tachycardia RESPIRATORY: Clear anteriorly. GASTROINTESTINAL: Abdomen soft, non-tender, nondistended. EXTREMITIES: No cyanosis, or edema. NEUROLOGICAL: Pt obtunded. Not following commands. Moving all extremities. Assessment/Plan Problem List: (1) T-cell lymphoma Status: Chronic Plan: -- Originally diagnosed in 2014 and was treated with standard therapy. -- Unfortunately he developed a recurrence and the most recent PET/CT scan showed extensive lymphadenopathy chest, neck, abdomen and pelvis. -- Platelets low due to DIC/sepsis/infection (2) Dehydration Status: Acute Plan: -- On IVF, 150ml/hr. (3) Sepsis Status: Acute Plan: ID following Assessment 61 y/o male with history of peripheral T cell lymphoma admitted for weakness Plan 1. The pt is quite debilitated and unfortunately his neurological status is declining. 2. Neuro recommended a lumbar puncture, but the family is requesting at this time a Hospice consult. 3. Will consult Palliative care. Discussed with [facility] Meza Jun 03, 2017 18:20
[2017-06-03] MEDS ORDERED: CALCITONIN SALMON INJ 400 UNITS/2 ML VIAL SQ SCH (21:00)
== END 2017-06-03 18:25 | disposition hospice, inpatient (51) | DRG 871 ==
LOC: NEPC 10:33 → NEDA 12:30 → NEDH 22:01 → HIMN 06-03 01:10
PROVIDERS: ADMIT Internal Medicine; ATTEND Internal Medicine
PROC: 30233N1 Transfusion of Nonautologous Red Blood Cells into Peripheral Vein, Percutaneous Approach (ICD-10-PCS; principal; 2017-06-03)
DX: A41.9 Sepsis, unspecified organism (principal); G93.40 Encephalopathy, unspecified; N17.9 Acute kidney failure, unspecified; D61.810 Antineoplastic chemotherapy induced pancytopenia; C84.40 Peripheral T-cell lymphoma, not elsewhere classified, unspecified site; E87.1 Hypo-osmolality and hyponatremia; R16.1 Splenomegaly, not elsewhere classified; E83.52 Hypercalcemia; R50.81 Fever presenting with conditions classified elsewhere; Z78.1 Physical restraint status; E86.0 Dehydration; Z51.5 Encounter for palliative care; Z92.21 Personal history of antineoplastic chemotherapy; E16.2 Hypoglycemia, unspecified; J44.9 Chronic obstructive pulmonary disease, unspecified; R74.0 Nonspecific elevation of levels of transaminase and lactic acid dehydrogenase [LDH]; E88.09 Other disorders of plasma-protein metabolism, not elsewhere classified; Z85.828 Personal history of other malignant neoplasm of skin
CPT/HCPCS: 36430; 36600; 70450; 71010; 76700; 80048; 80053; 81001; 82140; 82550; 82805; 83735; 84100; 84155; 84443; 84484; 85007; 85027; 85384; 85610; 85730; 86077; 86850; 86870; 86900; 86901; 86902; 86920; 86922; 87015; 87040; 87086; 87641; 93005; C9113; J0133; J0692; J1200; J1630; J3370; J7030; J7040; J7042; J7050; P9016; P9017